=== PATIENT | female | born 1950 | race Caucasian/White ===

== ENCOUNTER 2016-05-09 07:49 | Inpatient (IN) ==
[2016-05-09] MEDS ORDERED: 0.9 % Sodium Chloride 1,000 ML IVC ONE (08:10)
[2016-05-09] MEDS ORDERED: Ondansetron 4 MG/2 ML VIAL IVP ONE ×2 (08:10→09:59)
[2016-05-09] MEDS ORDERED: *HR* FentaNYL (PF) 100 MCG/2 ML VIAL IVP ONE ×2 (08:10→09:59)
--- NOTE | 2016-05-09 08:19 | Emergency Department Note ---
Disposition Clinical Impression: Intractable nausea and vomiting, Abdominal pain, Partial small bowel obstruction Disposition: Admitted As Inpatient Condition: Good Nausea/Vomiting/Diarrhea HPI - General Chief complaint: ED Nausea/Vomiting/Diarrhea Stated complaint: N/V/D x1 day Time Seen by Provider: 05/09/16 08:00 Source: patient, family Mode of arrival: ambulatory Limitations: no limitations Nursing Notes Reviewed: Yes Vital Signs Reviewed: Yes - History of Present Illness HPI Narrative: 65-year-old female history of breast cancer DCIS, malrotation status post repair 2 years ago who presents to the ER with a chief complaint of nausea vomiting and abdominal pain. Patient states she started having abdominal pain yesterday. Describes it as a cramping pain going across her belly button. She reports a history of similar symptoms in the past attributable to her kidney stones. She states that it is not in the same location as her renal stones. Reports that she has had to have multiple lithotripsies and follows with urology. Patient denies dysuria or hematuria. She does endorse nausea and several episodes of bilious vomiting. Also reports loose stools this morning. No recent illnesses or sick contacts. No fevers at home. No other complaints. Pt Subjective Complaint: nausea, vomiting, abdominal pain Onset (ago): day(s) (1) Description of emesis: bilious Associated Abdominal Pain: Yes If pain, Location of pain: periumbilical Severity: moderate Quality: cramping Consistency: constant Improves with: nothing Worsens with: nonthing Context: history of abdominal surgery (Malrotation repair) Associated symptoms: Reports: loss of appetite, nausea/vomiting, other ( Abdominal pain). Denies: chest pain, fever/chills - Related Data Home Medications Medication Instructions Recorded Confirmed Cholecalciferol (Vitamin D3) 1,000 unit PO DAILY 10/17/14 05/09/16 [Vitamin D] Esomeprazole Magnesium [Nexium] 40 mg PO DAILY 10/17/14 05/09/16 Ferrous Sulfate 325 mg PO DAILY 10/17/14 05/09/16 Levothyroxine Sodium [Synthroid] 88 mcg PO DAILY 10/17/14 05/09/16 Meclizine HCl [Antivert] 12.5 mg PO DAILY PRN 10/17/14 05/09/16 Multivit-Min/FA/Lycopen/Lutein 1 tab PO DAILY 10/17/14 05/09/16 [Centrum Silver Tablet] Vitamin E 400 unit PO BID 10/17/14 05/09/16 Escitalopram [Lexapro] 20 mg PO DAILY 07/10/15 05/09/16 BuPROPion SR (12 HR) [Wellbutrin 100 mg PO DAILY 01/07/16 05/09/16 SR] Potassium Citrate [Urocit-K] 10 meq PO BID 05/01/16 05/09/16 Ascorbic Acid [Vitamin C] 500 mg PO DAILY 05/05/16 05/09/16 Cyanocobalamin (Vitamin B-12) 1,000 mcg SL DAILY 05/05/16 05/09/16 [Vitamin B-12] Folic Acid 1 mg PO DAILY 05/05/16 05/09/16 Gluc HCl/Csa/Collagen/Hyalur A 1 each PO BID 05/05/16 05/09/16 [Glucosamine Chondroitin Cap] Hydrochlorothiazide 25 mg PO DAILY 05/05/16 05/09/16 Polyethylene Glycol 3350 [MiraLAX 17 gm PO BID 05/09/16 05/09/16 bowel prep] Psyllium Husk [Fiber] 0.52 gm PO DAILY 05/09/16 05/09/16 Tramadol HCl [Ultram] 100 mg PO TID PRN 05/09/16 05/09/16 Zolpidem [Ambien] 5 mg PO HS 05/09/16 05/09/16 Allergies Allergy/AdvReac Type Severity Reaction Status Date / Time Iodinated Contrast Media - Allergy Hives Verified 05/09/16 11:16 Oral and All systems ED: reviewed and negative except as stated. Constitutional: Denies: fever Cardiovascular: Denies: chest pain Respiratory: Denies: cough, dyspnea Gastrointestinal: Reports: abdominal pain, nausea, vomiting. Denies: diarrhea Genitourinary: Denies: dysuria, hematuria Musculoskeletal: Denies: back pain Past Medical History - Past Medical History Attestation: Yes The following information was validated with the patient. Source: patient Medical history: Reports: cancer, GERD, kidney stones, other Surgical history: Reports: appendectomy, breast surgery, herniorrhaphy, hysterectomy, other Psychiatric history: Reports: anxiety, depression - Social History Smoking Status: Never smoker Smokeless Tobacco Status: No Alcohol use: Reports: none Drug use: Reports: none Physical Exam - General Limitations: no limitations General appearance: alert, in no apparent distress - Head Head exam: atraumatic, normocephalic, normal inspection - Eye Eye exam: Present: normal appearance - ENT ENT exam: normal exam - Neck Neck exam: Present: normal inspection - Chest Chest inspection: Present: normal inspection, symmetric chest wall rise - Respiratory Respiratory exam: Present: normal lung sounds bilaterally - Cardiovascular Cardiovascular exam: Present: regular rate, normal rhythm, normal heart sounds - Abdominal Exam Abdominal exam: Present: soft, tenderness (There is moderate tenderness to palpation in the periumbilical region. Patient grimaces with palpation. Nonrigid nondistended abdomen.) - Expanded Lower Extremity Exam Hip/Pelvis exam: Present: normal inspection, full ROM Upper leg exam: Present: normal inspection, full ROM Knee exam: Present: normal inspection, full ROM Lower leg exam: Present: normal inspection, full ROM Ankle exam: Present: normal inspection, full ROM Foot/toe exam: Present: normal inspection, full ROM - Back Exam Back exam: Absent: CVA tenderness (R), CVA tenderness (L) - Neurological Exam Neurological exam: Present: alert - Psychiatric Psychiatric exam: Present: normal affect, normal mood - Skin Skin exam: Present: warm, dry, intact, normal color Course Course Narrative: Patient seen and examined. Vital signs reviewed. Afebrile here. Plan for patient is to get some abdominal labs including lipase and LFTs. We will also get a urinalysis. Given her history of malrotation and repair we will get a CT scan of the abdomen and pelvis without contrast for evaluation as well as for history of renal stones. Patient will be provided with IV fluids, antiemetics and analgesics. Disposition pending. - Reevaluation(s) Reevaluation #1: Discussed results of lab work and imaging with the patient. She remains tender to palpation with nausea. Will order another dose of analgesics and antiemetics. - Consultations Consultation #1: I spoke with the on-call surgeon Dr. Trejo. The patient's history, exam, lab and imaging findings. He reports to admit to the hospitalist. I will place a consult for surgery to see her in the hospital. Vital Signs Temperature 97.5 F L 05/09/16 07:51 Pulse Rate 83 05/09/16 07:51 Respiratory Rate 16 05/09/16 07:51 Blood Pressure 135/76 05/09/16 07:51 O2 Sat by Pulse Oximetry 97 05/09/16 07:51 Temperature 97.4 F L 05/09/16 11:37 Pulse Rate 70 05/09/16 11:37 Respiratory Rate 16 05/09/16 11:37 Blood Pressure 124/70 05/09/16 11:37 O2 Sat by Pulse Oximetry 97 05/09/16 11:37 Oxygen Delivery Oxygen Delivery Room Air Nausea/Vomiting/Diarrhea - MDM Narrative Medical decision making narrative: 65-year-old female presents to the ER with a chief complaint of nausea vomiting abdominal pain history history of multiple [place] procedures including malrotation repair. She is afebrile here. She continues to have intractable nausea and vomiting despite multiple rounds of medications. She remains to have a tender abdomen despite appropriate analgesics. CT scan shows concern for ileus versus developing partial small bowel traction. This case was discussed with surgery who recommended admission to the hospitalist. Patient is accepted to the hospitalist service for continued management. - Lab Data Lab results reviewed: Yes I reviewed the patient's lab results. Result diagrams: 05/09/16 08:59 05/09/16 08:59 Lab Results 05/09/16 05/09/16 05/09/16 Range/Units 08:59 08:59 08:59 WBC 19.1 H (4.3-11.1) K/mcL RBC 4.56 (3.82-4.97) M/mcL Hgb 14.7 (11.5-15.4) g/dL Hct 42.8 (35.3-44.9) % MCV 93.9 (83.0-100.0) fL MCH 32.2 (28.0-33.3) pg MCHC 34.3 (31.6-35.5) g/dL RDW 13.0 (11.5-14.5) % Plt Count 329 (140-400) K/mcL MPV 10.4 (9.4-12.4) fL Immature Gran % 0.7 (0-4) % Seg Neutrophils % 80.1 % Lymphocytes % 7.0 % Monocytes % 12.0 % Eosinophils % 0.0 % Basophils % 0.2 % Neutrophils # 15.3 H (1.6-8.9) K/mcL Lymphocytes # 1.3 (0.6-4.6) K/mcL Monocytes # 2.3 H (0.0-1.3) K/mcL Eosinophils # 0.0 (0.0-0.6) K/mcL Basophils # 0.0 (0.0-0.2) K/mcL PT (9.4-12.1) Seconds INR Sodium 143 (136-145) mEq/L Potassium 3.6 (3.5-4.5) mEq/L Chloride 105 (98-109) mEq/L Carbon Dioxide 24 (19-29) mEq/L BUN 23 H (7-20) mg/dL Creatinine 0.92 (0.57-1.11) mg/dL Est GFR ( Amer) > 60 (> 60) Est GFR (Non-Af Amer) > 60 (> 60) BUN/Creatinine Ratio 25 (6-26) Glucose 130 H (70-99) mg/dL Calculated Osmolality 301 H (280-300) Calcium 10.9 H (8.6-10.8) mg/dL Total Bilirubin 0.4 (0.2-1.2) mg/dL Direct Bilirubin 0.2 (0.0-0.5) mg/dL Indirect Bilirubin 0.2 (0.0-1.2) mg/dL AST 12 (5-34) Units/L ALT 14 (0-55) Units/L Alkaline Phosphatase 105 (38-126) Units/L Serum Total Protein 7.4 (6.0-8.3) g/dL Albumin 4.1 (3.5-5.0) g/dL Globulin 3.3 (2.4-3.5) g/dL Albumin/Globulin Ratio 1.2 (1.1-2.2) Lipase 27 (8-78) Units/L // Range/Units 08:59 WBC (4.3-11.1) K/mcL RBC (3.82-4.97) M/mcL Hgb (11.5-15.4) g/dL Hct (35.3-44.9) % MCV (83.0-100.0) fL MCH (28.0-33.3) pg MCHC (31.6-35.5) g/dL RDW (11.5-14.5) % Plt Count (140-400) K/mcL MPV (9.4-12.4) fL Immature Gran % (0-4) % Seg Neutrophils % % Lymphocytes % % Monocytes % % Eosinophils % % Basophils % % Neutrophils # (1.6-8.9) K/mcL Lymphocytes # (0.6-4.6) K/mcL Monocytes # (0.0-1.3) K/mcL Eosinophils # (0.0-0.6) K/mcL Basophils # (0.0-0.2) K/mcL PT 10.7 (9.4-12.1) Seconds INR 1.0 Sodium (136-145) mEq/L Potassium (3.5-4.5) mEq/L Chloride (98-109) mEq/L Carbon Dioxide (19-29) mEq/L BUN (7-20) mg/dL Creatinine (0.57-1.11) mg/dL Est GFR ( Amer) (> 60) Est GFR (Non-Af Amer) (> 60) BUN/Creatinine Ratio (6-26) Glucose (70-99) mg/dL Calculated Osmolality (280-300) Calcium (8.6-10.8) mg/dL Total Bilirubin (0.2-1.2) mg/dL Direct Bilirubin (0.0-0.5) mg/dL Indirect Bilirubin (0.0-1.2) mg/dL AST (5-34) Units/L ALT (0-55) Units/L Alkaline Phosphatase (38-126) Units/L Serum Total Protein (6.0-8.3) g/dL Albumin (3.5-5.0) g/dL Globulin (2.4-3.5) g/dL Albumin/Globulin Ratio (1.1-2.2) Lipase (8-78) Units/L - Radiology Data Radiology results reviewed: Yes I reviewed the patient's radiology results. Abdomen/Pelvis CT 05/09/16 08:11 IMPRESSION: 1. Multiple dilated loops of fluid-filled small bowel, measuring up to 3.3 cm in diameter. Differential includes developing ileus versus partial small bowel obstruction. Patient reportedly has a history of bowel malrotation. Presence of surgical sutures in multiple loops of bowel suggest prior surgery. 2. Right adnexal 4.2 x 2.5 cm cystic collection. Patient has had a hysterectomy. Please correlate with surgical history of oophorectomy. If patient still has ovaries, this fluid collection may be associated with the right ovary. 3. Trace free fluid in the pelvis and around the spleen. 4. Nonobstructing bilateral nephrolithiasis. 5. Anterior abdominal wall hernia repair with mesh. D/ / 05/09/2016 09:15:34 Apollo Hernandes MD / rickey Interpreting Provider: MD Rimma White - Rimma Situation: Demographics, MOA Background: Presenting Complaint, Relevant PMH, Meds, & Allergies Assessment: Course and respsone to treatment, Exam Concerns, Pertinant Lab Results, Outstanding Labs Recommendation: Barrier(s) to disposition, Recommendation based on pending studies, treatments, or consults Rimma Report Given to: Dr. Laura Shanks Repor Time: 10:21 Attestation Statement - Attestation Attestation: For this encounter, I have reviewed the resident, FIELD OBSERVER, or PA documentation, treatment plan, and medical decision making; and I have had face to face time with this patient. 65-year-old female presents with concerns of abdominal pain, nausea, vomiting, and distention. Patient has a history of malrotation status post surgical repair and has a history of small bowel obstruction in the past. Patient states she has vomited multiple times which was described as a dark gritty material but denies hematemesis. Abdominal exam reveals distention, diffuse tenderness to palpation with tenderness to percussion. CT of the abdomen shows distended small bowel with possible small bowel obstruction versus ileus. Patient has a significantly elevated white blood cell count however she does not have a fever. We will add antibiotic coverage for gut bacteria and admitted to the hospitalists for further care and evaluation. Resident spoke with the surgeon who agreed with the plan and will see the patient in the hospital. The patient has not vomited in the emergency department and we will hold on NG tube placement unless status changes.
[2016-05-09 09:29] LABS: Basophils % 0.2 %; Hematocrit 42.8 % (35.3-44.9); Hemoglobin 14.7 g/dL (11.5-15.4); Immature Granulocytes % 0.7 % (0-4); Lymphocytes # 1.3 K/mcL (0.6-4.6); Mean Corpuscular HGB Conc 34.3 g/dL (31.6-35.5); Mean Corpuscular Hemoglobin 32.2 pg (28.0-33.3); Mean Corpuscular Volume 93.9 fL (83.0-100.0); Mean Platelet Volume 10.4 fL (9.4-12.4); Monocytes # 2.3 K/mcL (0.0-1.3); Neutrophils # 15.3 K/mcL (1.6-8.9); Platelet Count 329 K/mcL (140-400); Red Blood Count 4.56 M/mcL (3.82-4.97); Segmented Neutrophils % 80.1 %
[2016-05-09 09:43] LABS: Albumin 4.1 g/dL (3.5-5.0); Albumin/Globulin Ratio 1.2 (1.1-2.2); Bilirubin,Direct 0.2 mg/dL (0.0-0.5); Bilirubin,Indirect 0.2 mg/dL (0.0-1.2); Bilirubin,Total 0.4 mg/dL (0.2-1.2); Globulin 3.3 g/dL (2.4-3.5); Total Protein 7.4 g/dL (6.0-8.3)
[2016-05-09 09:45] LABS: BUN/Creatinine Ratio 25 (6-26); Blood Urea Nitrogen 23 mg/dL (7-20); Calcium 10.9 mg/dL (8.6-10.8); Carbon Dioxide 24 mEq/L (19-29); Chloride 105 mEq/L (98-109); Glucose 130 mg/dL (70-99); Lipase 27 Units/L (8-78); Osmolality,Calculated 301 (280-300); Potassium 3.6 mEq/L (3.5-4.5); Sodium 143 mEq/L (136-145); eGFR For African Americans > 60 (> 60); eGFR For Non-African Americans > 60 (> 60)
[2016-05-09 09:46] LABS: Prothrombin Time 10.7 Seconds (9.4-12.1)
[2016-05-09] MEDS ORDERED: Naloxone 0.4 MG/ML INJ IVP PRN (10:23)
--- NOTE | 2016-05-09 10:38 | Internal Med History&Physical ---
Date of Encounter: 05/11/16 Time of Encounter: 10:37 Assessment and Plan (1) Partial small bowel obstruction Current visit: Yes Status: Acute Small bowel obstruction: -Patient admitted as an inpatient. -Nothing by mouth with ice chips. -IV fluids 75 mL per hour. -Serial abdominal examination -Surgery on the board. We will follow opinion from surgery. -GI/DVT prophylaxis (2) Nausea & vomiting Current visit: No Status: Acute Symptomatic treatment. IV fluids. Qualifiers: Vomiting type: unspecified Vomiting Intractability: unspecified Qualified Code(s): R11.2 - Nausea with vomiting, unspecified (3) Breast cancer, left Current visit: No Status: Chronic Visit system chronic problem and has no relation with this acute finding Qualifiers: Breast location: unspecified site of breast Patient sex: female Qualified Code(s): C50.912 - Malignant neoplasm of unspecified site of left female breast (4) DVT prophylaxis Current visit: Yes Status: Acute Heparin Medical decision making: This patient has a [id number] risk of worsening in spite of being on appropriate medication and treatments. Internal Medicine - H&P: HPI Chief complaint: abdominal pain Admitted From: Emergency Dept Plans for Post Hospital Care: Home History of present illness: PCP: Dr Wooten Brief PMH: breast cancer, GERD, kidney stones, previous GI surgery. HPI: chief complaint of nausea vomiting and abdominal pain. Patient states she started having abdominal pain yesterday. Describes it as a cramping pain going across her belly button. She reports a history of similar symptoms in the past attributable to her kidney stones. She states that it is not in the same location as her renal stones. Patient denies chest pain, dizziness, palpitation , short of breath and joint pain. Patient had an episode of vomiting and diarrhea. Patient was brought to the emergency room by family members as she was progressively getting worse. Course in the emergency room: Patient was worked up in the emergency room. Basic lab work was done. Noted that her white blood cell count was elevated ( 19K), patient underwent CT scan of the abdomen. CT scan of the abdomen showed developing small bowel obstruction/partial ileus. Emergency room physician contacted surgery. Surgeon Dr. Trejo will be surgeon to call for. He requested to admit patient under hospitalist service and he will be available for consult. Reason for admission: Possible Small bowel obstruction. This is a semi- surgical issue which needs to be monitored in the hospital and this cannot be treated at home. Family history: Noncontributory Past Med Surg Social Fam HX - Past Medical History Medical history: cancer, GERD, kidney stones, other Psychiatric history: anxiety, depression - Past Surgical History Surgical History: appendectomy, breast surgery, herniorrhaphy, hysterectomy, other - Social History Smoking Status: Never smoker Smokeless Tobacco Status: No Alcohol use: none Drug use: none Internal Medicine - H&P: Meds Cholecalciferol (Vitamin D3) [Vitamin D] 1,000 unit PO DAILY 10/17/14 [History] Esomeprazole Magnesium [Nexium] 40 mg PO DAILY 10/17/14 [History] Ferrous Sulfate 325 mg PO DAILY 10/17/14 [History] Levothyroxine Sodium [Synthroid] 88 mcg PO DAILY 10/17/14 [History] Meclizine HCl [Antivert] 12.5 mg PO DAILY PRN 10/17/14 [History] Multivit-Min/FA/Lycopen/Lutein [Centrum Silver Tablet] 1 tab PO DAILY 10/17/14 [ History] Vitamin E 400 unit PO BID 10/17/14 [History] Escitalopram [Lexapro] 20 mg PO DAILY 07/10/15 [History] BuPROPion SR (12 HR) [Wellbutrin SR] 100 mg PO DAILY 01/07/16 [History] Potassium Citrate [Urocit-K] 10 meq PO BID 05/01/16 [History] Ascorbic Acid [Vitamin C] 500 mg PO DAILY 05/05/16 [History] Cyanocobalamin (Vitamin B-12) [Vitamin B-12] 1,000 mcg SL DAILY 05/05/16 [ History] Folic Acid 1 mg PO DAILY 05/05/16 [History] Gluc HCl/Csa/Collagen/Hyalur A [Glucosamine Chondroitin Cap] 1 each PO BID 05/05 [History] Hydrochlorothiazide 25 mg PO DAILY 05/05/16 [History] Polyethylene Glycol 3350 [MiraLAX bowel prep] 17 gm PO BID 05/09/16 [History] Psyllium Husk [Fiber] 0.52 gm PO DAILY 05/09/16 [History] Tramadol HCl [Ultram] 100 mg PO TID PRN 05/09/16 [History] Zolpidem [Ambien] 5 mg PO HS 05/09/16 [History] Allergies Iodinated Contrast Media - Oral and Allergy (Verified 05/09/16 11:16) Hives All Systems PM: A 10-system review of systems was performed and is negative for pertinent findings except as documented above in the HPI. - Constitutional Constitutional: no chills, no fever(s), no night sweats - EENT Eyes: no change in vision, no discharge, no pain, no photophobia Ears: no ear discharge, no ear pain, no tinnitus Nose, mouth and throat: no dysphagia, no nasal discharge, no neck pain, no sore throat - Cardiovascular Cardiovascular ROS IM: no chest pain, no diaphoresis, no dyspnea, no lightheadedness, no palpitations, no syncope - Respiratory Respiratory: no cough, no dyspnea, no wheezing, no excessive phlegm production - Gastrointestinal Gastrointestinal: abdominal pain, belching, bloating, change in stool character , diarrhea, loose stools, vomiting - Genitourinary Genitourinary: no change in urinary stream, no dysuria, no flank pain, no hematuria - Musculoskeletal Musculoskeletal ROS IM: no numbness, no tingling - Integumentary Integumentary IM: no rash, no unusual bruising - Neurological Neurological ROS: no confusion, no convulsions, no focal weakness, no numbness, no tingling, no tremor(s) - Hematologic/Lymphatic Hematologic/Lymphatic: no easy bruising - Constitutional Vitals: Temp Pulse Resp BP Pulse Ox 97.5 F L 70 16 148/78 98 05/09/16 07:51 05/09/16 10:00 05/09/16 10:00 05/09/16 10:00 05/09/16 10:00 General appearance: Present: A&O X 3, pleasant, no acute distress, answers questions appropriately - Head Head exam: Present: atraumatic, normocephalic - Eye Eye exam: Present: PERRL, conjuntiva pink, sclera anicteric Pupils: Present: PERRL - Neck Neck exam general surgery: Present: supple, trachea midline. Absent: lymphadenopathy - Respiratory Respiratory exam: Present: CTAB. Absent: accessory muscle use, rales, rhonchi, wheezes - Cardiovascular Cardiovascular exam: Present: RRR, +S1, +S2. Absent: diastolic murmur, gallop, rubs, systolic murmur - GI/Abdominal GI/Abdominal exam: Present: guarding, normal bowel sounds, soft, tenderness, no peritoneal signs. Absent: distended - Extremities Exam Extremities exam: Present: warm, radial pulses palpable and symetrical. Absent : calf tenderness, cyanotic, pedal edema - Neurological Exam Neurological exam: Present: CN II-XII intact, oriented X3, no focal deficits. Absent: pronater drift, facial droop, speech deficit - Skin Skin exam: Present: dry, intact Internal Med - H&P Results - Labs CBC & Chem 7: 05/10/16 06:01 05/10/16 04:00
[2016-05-09] MEDS ORDERED: *HR* LORazepam 2 MG/ML VIAL IVP ONE ×2 (10:59→15:21)
[2016-05-09] MEDS: 0.9 % Sodium Chloride 1,000 ML IVC SCH (11:59)
[2016-05-09] MEDS ORDERED: Promethazine 12.5 MG in 0.9 % Sodium Chloride 50 ML IVPB PRN (12:09)
[2016-05-09] MEDS ORDERED: *HR* Promethazine 25 MG/ML VIAL ONE (12:17)
[2016-05-09] MEDS: *HR* Promethazine 25 MG/ML VIAL IVP PRN (12:30)
[2016-05-09] MEDS: *HR* Morphine 2 MG/ML SYRINGE IVP PRN ×3 (12:30→21:30)
[2016-05-09] MEDS ORDERED: Lidocaine Jelly 6 ml Syringe MM ONE (15:21)
[2016-05-09] MEDS: MetroNIDAZOLE 500 MG/100 ML 500 MG/100 ML BAG IVPB SCH (15:40)
[2016-05-09] MEDS ORDERED: Chloraseptic Spray 177 ML BOTTLE MM PRN (16:05)
[2016-05-09] MEDS ORDERED: Lidocaine Viscous Oral Soln 15 ML SOLUTION MM PRN (16:05)
--- NOTE | 2016-05-09 16:14 | General Surgery Consult Note ---
<Cici Diaz A - Last Filed: 05/09/16 16:07> Date of Encounter: 05/09/16 Time of Encounter: 15:00 Assessment and Plan (1) Partial small bowel obstruction Current Visit: Yes Status: Acute Conservative therapy at this time including: Bowel rest NG tube to LIWS IV fluids Supportive care/pain control Serial abdominal exams Surgery will continue to follow and assess progress History of Present Illness Consult date: 05/09/16 Reason for consult: other (PSBO) Requesting physician: Rosendo Rasmussen History of present illness: Mrs. Mcintosh is a very pleasant 65 year old female who is well known to the surgery practice. She has a past medical history significant for breast cancer, fibromyalgia, anxiety, GERD, osteoporosis, diverticulosis, malrotation of the intestines, FCBD, hypothyroidism, kidney stones, anemia. She presented to the ED today with a 3 days history of abdominal pain with associated nausea/ vomiting. She states that she has been treated for bronchitis for the past 1 week and is currently taking an antibiotic and steroid. She states that she has not felt well since starting these medications. She states that he abdominal pain is located around the central abdomen and has progressively worsened over the past 3 days. Reports nausea/vomiting with last episode being today. Denies any hematemesis of coffee ground emesis. Admits to chronic constipation and typically has a bowel movement 2-3 times per week. Last bowel movement was this morning and it was diarrhea. Admits to fevers up to 101.8 and chills. Denies any shortness of breath of chest pains. Admits to a cough. Admits to significant abdominal bloating. Her radiologic imaging shows evidence of SB dilatation and partial SBO. We have been asked to see and evaluate her for surgical recommendations. Past Med Surg Social Fam HX - Past Medical History Source: patient, old records reviewed Medical history: cancer (breast), GERD, kidney stones, thyroid disease ( hypothyroidism), other (fibromyalgia, osteoporosis, diverticulosis, dermatitis, insomnia, FCBD, anemia, malrotation of intestines) Psychiatric history: anxiety, depression - Past Surgical History Surgical History: appendectomy, breast surgery (left breast biopsy, left breast lumpectomy), herniorrhaphy (incisional hernia repair 2015), hysterectomy, other (tubal ligation and bladder surgery, Club feet surgery as a child, D&C and diagnostic laparoscopy, bladder surgery, colonoscopy, kidney stone removal, exploraotry laparotomy) - Social History Smoking Status: Never smoker Smokeless Tobacco Status: No Alcohol use: none Drug use: none Current living situation: Home - Independent Activity Level: Independent ambulation - Family History Mother Living Status: Age at : 87 Hx Family Cancer: Yes (Ovarian) Hx Family Endocrine Disorder: Yes (DM) Father Living Status: Age at : 89 Hx Family Cancer: Yes (Prostate and colon) Medications and Allergies Cholecalciferol (Vitamin D3) [Vitamin D] 1,000 unit PO DAILY 10/17/14 [History] Esomeprazole Magnesium [Nexium] 40 mg PO DAILY 10/17/14 [History] Ferrous Sulfate 325 mg PO DAILY 10/17/14 [History] Levothyroxine Sodium [Synthroid] 88 mcg PO DAILY 10/17/14 [History] Meclizine HCl [Antivert] 12.5 mg PO DAILY PRN 10/17/14 [History] Multivit-Min/FA/Lycopen/Lutein [Centrum Silver Tablet] 1 tab PO DAILY 10/17/14 [ History] Vitamin E 400 unit PO BID 10/17/14 [History] Escitalopram [Lexapro] 20 mg PO DAILY 07/10/15 [History] BuPROPion SR (12 HR) [Wellbutrin SR] 100 mg PO DAILY 01/07/16 [History] Potassium Citrate [Urocit-K] 10 meq PO BID 05/01/16 [History] Ascorbic Acid [Vitamin C] 500 mg PO DAILY 05/05/16 [History] Cyanocobalamin (Vitamin B-12) [Vitamin B-12] 1,000 mcg SL DAILY 05/05/16 [ History] Folic Acid 1 mg PO DAILY 05/05/16 [History] Gluc HCl/Csa/Collagen/Hyalur A [Glucosamine Chondroitin Cap] 1 each PO BID 05/05 [History] Hydrochlorothiazide 25 mg PO DAILY 05/05/16 [History] Polyethylene Glycol 3350 [MiraLAX bowel prep] 17 gm PO BID 05/09/16 [History] Psyllium Husk [Fiber] 0.52 gm PO DAILY 05/09/16 [History] Tramadol HCl [Ultram] 100 mg PO TID PRN 05/09/16 [History] Zolpidem [Ambien] 5 mg PO HS 05/09/16 [History] Allergies Iodinated Contrast Media - Oral and Allergy (Verified 05/09/16 11:16) Hives Review of Systems All systems PM: reviewed and no additional remarkable complaints except as stated (in the HPI) All systems PM: A 10-system review of systems was performed and is negative for pertinent findings except as documented above in the HPI. General Surgery Exam Initial Vital Signs Temp Pulse Resp BP Pulse Ox 97.5 F L 83 16 135/76 97 05/09/16 07:51 05/09/16 07:51 05/09/16 07:51 05/09/16 07:51 05/09/16 07:51 - General physical appearance well developed, well nourished, moderate distress - Eyes normal ocular movement - ENT normal mucosa, atraumatic, normocephalic - Neck trachea midline - Respiratory normal respiratory effort, clear to auscultation - Cardiovascular Cardiovascular exam: Present: RRR, 15, 16 - Abdomen Abdomen general surgery: Present: bowel sounds present, soft, distended, tender , wound - Integumentary Integumentary general surgery: Present: warm and dry - Neurologic Present: CN 2-12 grossly intact - Psychiatric Psychiatric general surgery: Present: appropriate, oriented to person, oriented to place, oriented to time, speech is normal, memory intact Exam Initial Vital Signs Temp Pulse Resp BP Pulse Ox 97.5 F L 83 16 135/76 97 05/09/16 07:51 05/09/16 07:51 05/09/16 07:51 05/09/16 07:51 05/09/16 07:51 Results - Labs 05/09/16 08:59 05/09/16 08:59 Abnormal lab results WBC 19.1 K/mcL (4.3-11.1) H 05/09/16 08:59 Neutrophils # 15.3 K/mcL (1.6-8.9) H 05/09/16 08:59 Monocytes # 2.3 K/mcL (0.0-1.3) H 05/09/16 08:59 BUN 23 mg/dL (7-20) H 05/09/16 08:59 Glucose 130 mg/dL (70-99) H 05/09/16 08:59 POC Glucose 119 (58-89) H 05/09/16 11:46 Calculated Osmolality 301 (280-300) H 05/09/16 08:59 Calcium 10.9 mg/dL (8.6-10.8) H 05/09/16 08:59 All other labs normal. - Imaging Additional studies: Abdomen/Pelvis CT 05/09/16 08:11 IMPRESSION: 1. Multiple dilated loops of fluid-filled small bowel, measuring up to 3.3 cm in diameter. Differential includes developing ileus versus partial small bowel obstruction. Patient reportedly has a history of bowel malrotation. Presence of surgical sutures in multiple loops of bowel suggest prior surgery. 2. Right adnexal 4.2 x 2.5 cm cystic collection. Patient has had a hysterectomy. Please correlate with surgical history of oophorectomy. If patient still has ovaries, this fluid collection may be associated with the right ovary. 3. Trace free fluid in the pelvis and around the spleen. 4. Nonobstructing bilateral nephrolithiasis. 5. Anterior abdominal wall hernia repair with mesh. D/ / 05/09/2016 09:15:34 Apollo Hernandes MD / rickey Interpreting Provider: Apollo Hernandes MD Consult Discharge Plan - Plan Referrals: Levi Wooten MD [Primary Care Provider] - - Attending Attestation I examined this patient and my medical decision-making was reviewed with the CREATIVE PERFUMER/PA/Advanced Practice Nurse/Resident Physician. I agree with the documented findings, disposition and treatment plan as described except to the extent set forth below. <Walt Trejo - Last Filed: 05/10/16 01:30> Date of Encounter: 05/10/16 Review of Systems All systems PM: A 10-system review of systems was performed and is negative for pertinent findings except as documented above in the HPI. General Surgery Exam Initial Vital Signs Temp Pulse Resp BP Pulse Ox 97.5 F L 83 16 135/76 97 05/09/16 07:51 05/09/16 07:51 05/09/16 07:51 05/09/16 07:51 05/09/16 07:51 Exam Initial Vital Signs Temp Pulse Resp BP Pulse Ox 97.5 F L 83 16 135/76 97 05/09/16 07:51 05/09/16 07:51 05/09/16 07:51 05/09/16 07:51 05/09/16 07:51 Results - Labs 05/09/16 08:59 05/09/16 08:59 Abnormal lab results WBC 19.1 K/mcL (4.3-11.1) H 05/09/16 08:59 Neutrophils # 15.3 K/mcL (1.6-8.9) H 05/09/16 08:59 Monocytes # 2.3 K/mcL (0.0-1.3) H 05/09/16 08:59 BUN 23 mg/dL (7-20) H 05/09/16 08:59 Glucose 130 mg/dL (70-99) H 05/09/16 08:59 Calculated Osmolality 301 (280-300) H 05/09/16 08:59 Calcium 10.9 mg/dL (8.6-10.8) H 05/09/16 08:59 Urine Clarity Cloudy (Clear) A 05/09/16 21:15 Ur Leukocyte Esterase Trace (Negative) H 05/09/16 21:15 Urine Microscopic WBC 3-5 per hpf (0-3) H 05/09/16 21:15 Ur Squamous Epith Cells Many per lpf (None-Few) H 05/09/16 21:15 Ur Culture Indicated? YES (NO) A 05/09/16 21:15 All other labs normal. - Attending Attestation I was physically present during the assessment and evaluation process for this patient. She has been having abdominal distention for several days with abdominal pain. Noted nausea and vomiting with the last episode of vomiting this morning. He is also been having some dry heaving. Positive tympany and pain to palpation. Patient has had multiple abdominal surgeries including bowel resection and hernia repair. She will require NG tube placement with decompression and serial abdominal exams. We will follow with you.
[2016-05-09] MEDS: *HR* Heparin 5,000 UNIT/ML VIAL SQ SCH (17:40)
[2016-05-09 21:28] LABS: Bilirubin,Urine Negative (Negative); Blood,Urine Negative (Negative); Clarity,Urine Cloudy (Clear); Color,Urine Yellow (Yellow); Glucose,Urine (UA) Normal (Normal); Ketones,Urine Negative (Negative); Leukocyte Esterase,Urine Trace (Negative); Nitrite,Urine Negative (Negative); PH,Urine 6.5 pH Units (5.0-8.0); Protein,Urine Trace mg/dL (Neg-Trace); Specific Gravity,Urine 1.018 (1.010-1.025); Urobilinogen,Urine Normal (Normal)
[2016-05-09 21:30] LABS: Bacteria,Urine None Seen per hpf (None-Few); Hyaline Casts,Urine Few per lpf (None-Few); RBC,Urine 0-3 per hpf (0-3); Squamous Epithelial Cell,Urine Many per lpf (None-Few)
[2016-05-09 21:40] LABS: Other Crystals,Urine Present
[2016-05-10] MEDS: MetroNIDAZOLE 500 MG/100 ML 500 MG/100 ML BAG IVPB SCH ×4 (00:25→23:51)
[2016-05-10] MEDS: *HR* Morphine 2 MG/ML SYRINGE IVP PRN ×5 (02:42→20:20)
[2016-05-10 05:14] LABS: Alanine Aminotransferase 10 Units/L (0-55); Alkaline Phosphatase 72 Units/L (38-126); Aspartate Amino Transferase 13 Units/L (5-34); BUN/Creatinine Ratio 35 (6-26); Bilirubin,Total 0.3 mg/dL (0.2-1.2); Blood Urea Nitrogen 28 mg/dL (7-20); Carbon Dioxide 24 mEq/L (19-29); Chloride 111 mEq/L (98-109); Globulin 2.8 g/dL (2.4-3.5); Glucose 81 mg/dL (70-99); Magnesium 1.9 mg/dL (1.6-2.6); Osmolality,Calculated 301 (280-300); Phosphorous 3.6 mg/dL (2.3-4.7); Potassium 4.2 mEq/L (3.5-4.5); Sodium 143 mEq/L (136-145); eGFR For African Americans > 60 (> 60); eGFR For Non-African Americans > 60 (> 60)
[2016-05-10 05:27] LABS: Albumin 2.8 g/dL (3.5-5.0); Calcium 8.2 mg/dL (8.6-10.8); Total Protein 5.6 g/dL (6.0-8.3)
[2016-05-10] MEDS: *HR* Heparin 5,000 UNIT/ML VIAL SQ SCH ×2 (05:53→18:30)
[2016-05-10] MEDS: 0.9 % Sodium Chloride 1,000 ML IVC SCH (05:55)
[2016-05-10 06:47] LABS: Basophils % 0.2 %; Eosinophils % 0.3 %; Hemoglobin 11.6 g/dL (11.5-15.4); Immature Granulocytes % 0.7 % (0-4); Lymphocytes # 1.8 K/mcL (0.6-4.6); Lymphocytes % 20.3 %; Mean Corpuscular HGB Conc 32.2 g/dL (31.6-35.5); Mean Corpuscular Hemoglobin 32.1 pg (28.0-33.3); Mean Corpuscular Volume 99.7 fL (83.0-100.0); Mean Platelet Volume 10.3 fL (9.4-12.4); Monocytes # 1.1 K/mcL (0.0-1.3); Monocytes % 12.9 %; Platelet Count 242 K/mcL (140-400); Red Blood Count 3.61 M/mcL (3.82-4.97); Red Cell Distribution Width 13.3 % (11.5-14.5); Segmented Neutrophils % 65.6 %
[2016-05-10 06:51] LABS: Neutrophils # 5.8 K/mcL (1.6-8.9)
[2016-05-10] MEDS: Pantoprazole 40 MG VIAL IVP SCH (07:52)
--- NOTE | 2016-05-10 09:12 | General Surgery Progress Note ---
<Don Joya - Last Filed: 05/10/16 11:37> Date of Encounter: 05/10/16 Time of Encounter: 07:25 - Assessment and Plan (1) Partial small bowel obstruction Current Visit: Yes Status: Acute Patient is improving. Will continue with conservative therapy at this time including: Bowel rest NG tube to LIWS IV fluids Supportive care/pain control Serial abdominal exams. Will follow NG output (2) DVT prophylaxis Current Visit: Yes Status: Acute Heparin 5000 units SQ Q12hr Subjective Patient reports: no new complaints, still having pain, pain is less, no flatus, no bowel movement, afebrile Narrative: The patient states she feels much better than yesterday, she continues to have some pain, but it is much less. She denies having nausea at this time. She denies return of her appetite. Objective Vital Signs - Last 8 Hours Temp Pulse Resp BP Pulse Ox 05/10/16 07:00 98.0 F 63 14 114/57 96 05/10/16 03:28 97.7 F 74 15 112/64 94 L 05/10/16 02:41 118/57 Intake and Output 05/09/16 05/10/16 05/10/16 23:59 07:59 15:59 Intake Total 300 / 300 1365 / 1365 Output Total 360 / 360 725 / 725 Balance -60 / -60 640 / 640 Intake: IV Fluids 300 / 300 1365 / 1365 0.9 % Sodium Chloride 1, 1065 / 1065 000 ML @ 70 mls/hr IVC . [id number] JOSE R Rx#: [id number] Cipro 400 MG/200 ML 400 200 / 200 200 / 200 mg In 200 ml @ 200 mls/hr IVPB Q12HR JOSE R Rx#: [id number] Flagyl 500 MG/100 ML 500 100 / 100 100 / 100 mg In 100 ml @ 100 mls/hr IVPB Q8HR JOSE R Rx#: [id number] Oral 0 / 0 Output: Urine 360 / 360 Urethral (Nieves) 360 / 360 Catheter 250 / 250 Gastric Drainage 475 / 475 Left Nare 350 / 350 Other: Meal NPO Blood Glucose* 121 79 - General physical appearance well developed, well nourished, no distress - Eyes normal ocular movement - ENT normal nares, normal mucosa, Other (NG tube in place) - Neck Neck exam: trachea midline - Respiratory normal respiratory effort, clear to auscultation - Cardiovascular Cardiovascular exam: Present: RRR - Abdomen Abdomen: Present: bowel sounds present, soft, non tender, distended (improved). Absent: guarding - Integumentary no rash - Neurologic CN 2-12 grossly intact - Musculoskeletal normal posture - Psychiatric oriented to time, oriented to person, oriented to place, speech is normal, memory intact - Labs 05/10/16 06:01 05/10/16 04:00 Diabetes panel 05/10/16 Range/Units 04:00 Sodium 143 (136-145) mEq/L Potassium 4.2 (3.5-4.5) mEq/L Chloride 111 H (98-109) mEq/L Carbon Dioxide 24 (19-29) mEq/L BUN 28 H (7-20) mg/dL Creatinine 0.81 (0.57-1.11) mg/dL Glucose 81 (70-99) mg/dL Calcium 8.2 L D (8.6-10.8) mg/dL AST 13 (5-34) Units/L ALT 10 (0-55) Units/L Alkaline Phosphatase 72 (38-126) Units/L Albumin 2.8 L D (3.5-5.0) g/dL Calcium panel 05/10/16 Range/Units 04:00 Calcium 8.2 L D (8.6-10.8) mg/dL Phosphorus 3.6 (2.3-4.7) mg/dL Albumin 2.8 L D (3.5-5.0) g/dL Pituitary panel 05/10/16 Range/Units 04:00 Sodium 143 (136-145) mEq/L Potassium 4.2 (3.5-4.5) mEq/L Chloride 111 H (98-109) mEq/L Carbon Dioxide 24 (19-29) mEq/L BUN 28 H (7-20) mg/dL Creatinine 0.81 (0.57-1.11) mg/dL Glucose 81 (70-99) mg/dL Calcium 8.2 L D (8.6-10.8) mg/dL Adrenal panel 05/10/16 Range/Units 04:00 Sodium 143 (136-145) mEq/L Potassium 4.2 (3.5-4.5) mEq/L Chloride 111 H (98-109) mEq/L Carbon Dioxide 24 (19-29) mEq/L BUN 28 H (7-20) mg/dL Creatinine 0.81 (0.57-1.11) mg/dL Glucose 81 (70-99) mg/dL Calcium 8.2 L D (8.6-10.8) mg/dL Total Bilirubin 0.3 (0.2-1.2) mg/dL AST 13 (5-34) Units/L ALT 10 (0-55) Units/L Alkaline Phosphatase 72 (38-126) Units/L Albumin 2.8 L D (3.5-5.0) g/dL Consult Discharge Plan - Plan Referrals: Levi Wooten MD [Primary Care Provider] - - Attending Attestation I examined this patient and my medical decision-making was reviewed with the PATCH WASHER/PA/Advanced Practice Nurse/Resident Physician. I agree with the documented findings, disposition and treatment plan as described except to the extent set forth below. <Walt Trejo - Last Filed: 05/11/16 07:31> Date of Encounter: 05/11/16 Objective Vital Signs - Last 8 Hours Temp Pulse Resp BP Pulse Ox 05/11/16 05:20 98.5 F 65 15 107/64 93 L Intake and Output 05/10/16 05/10/16 05/11/16 15:59 23:59 07:59 Intake Total 333 / 333 673 / 673 379 / 379 Output Total 700 / 700 850 / 850 550 / 550 Balance -367 / -367 -177 / -177 -171 / -171 Intake: IV Fluids 333 / 333 673 / 673 379 / 379 0.9 % Sodium Chloride 1, 233 / 233 373 / 373 279 / 279 000 ML @ 70 mls/hr IVC . [id number] JOSE R Rx#: [id number] Cipro 400 MG/200 ML 400 200 / 200 mg In 200 ml @ 200 mls/hr IVPB Q12HR JOSE R Rx#: [id number] Flagyl 500 MG/100 ML 500 100 / 100 100 / 100 100 / 100 mg In 100 ml @ 100 mls/hr IVPB Q8HR JOSE R Rx#: [id number] Output: Catheter 450 / 450 850 / 850 550 / 550 Gastric Drainage 250 / 250 Other: Meal NPO lunch NPO Percent of Meal Consumed 0% Blood Glucose* 68 64 80 - Labs 05/10/16 06:01 05/10/16 04:00 - Attending Attestation I reviewed the physical examination and assessment was present. Patient states the abdominal incision is decreased. She has less tympany and no abdominal pain. Positive bowel sounds. She denies any flatus. Agree with continued NG tube to low intermittent wall suction and continue serial abdominal examination.
--- NOTE | 2016-05-10 10:36 | Internal Med Progress Note ---
Date of Encounter: 05/10/16 Time of Encounter: 10:32 - Assessment and plan (1) Partial small bowel obstruction Current Visit: Yes Status: Acute Assessment and plan: h/o surgery fo rmalrotation. NG tube has been placed, reports that she feels clinically better abdominal pain has imporved , no nausea or vomiting keep IVF, on ice chips will follow surgical recommendations conservative mx, continue IV ab (2) Nausea & vomiting Current Visit: No Status: Acute Assessment and plan: improved. Qualifiers: Vomiting type: unspecified Vomiting Intractability: intractable Qualified Code(s): R11.2 - Nausea with vomiting, unspecified - Time Spent With Patient 25 - 35 minutes - Subjective Interval history: seen at the bedside, admitted for partial SBO. clinically better, surgery following. - Constitutional Vitals: Temp Pulse Resp BP Pulse Ox 98.0 F 63 14 114/57 96 05/10/16 07:00 05/10/16 07:00 05/10/16 07:00 05/10/16 07:00 05/10/16 07:00 General appearance: Present: A&O X 3, pleasant, no acute distress, answers questions appropriately Exam: - Head Head exam: Present: atraumatic, normocephalic - Eye Eye exam: Present: PERRL, conjuntiva pink, sclera anicteric Pupils: Present: PERRL - Neck Neck exam general surgery: Present: supple, trachea midline. Absent: lymphadenopathy - Respiratory Respiratory exam: Present: CTAB. Absent: accessory muscle use, rales, rhonchi, wheezes - Cardiovascular Cardiovascular exam: Present: RRR, +S1, +S2. Absent: diastolic murmur, gallop, rubs, systolic murmur - GI/Abdominal GI/Abdominal exam: Present: guarding, decreased bowel sounds, soft, tenderness, no peritoneal signs. Absent: distended - Extremities Exam Extremities exam: Present: warm, radial pulses palpable and symetrical. Absent : calf tenderness, cyanotic, pedal edema - Neurological Exam Neurological exam: Present: CN II-XII intact, oriented X3, no focal deficits. Absent: pronater drift, facial droop, speech deficit - Skin Skin exam: Present: dry, intact Internal Medicine: Result - Labs CBC & Chem 7: 05/10/16 06:01 05/10/16 04:00 Labs: Short CBC 05/10/16 Range/Units 06:01 WBC 8.8 D (4.3-11.1) K/mcL Hgb 11.6 D (11.5-15.4) g/dL Hct 36.0 (35.3-44.9) % Plt Count 242 (140-400) K/mcL Neutrophils # 5.8 (1.6-8.9) K/mcL BMP 05/10/16 04:00 Sodium 143 Potassium 4.2 Chloride 111 H Carbon Dioxide 24 BUN 28 H Creatinine 0.81 Glucose 81 Calcium 8.2 L D Liver Function 05/10/16 Range/Units 04:00 Total Bilirubin 0.3 (0.2-1.2) mg/dL AST 13 (5-34) Units/L ALT 10 (0-55) Units/L Alkaline Phosphatase 72 (38-126) Units/L Albumin 2.8 L D (3.5-5.0) g/dL Urine 05/09/16 Range/Units 21:15 Urine Color Yellow (Yellow) Urine Clarity Cloudy A (Clear) Urine pH 6.5 (5.0-8.0) pH Units Ur Specific [place] 1.018 (1.010-1.025) Urine Protein Trace (Neg-Trace) mg/dL Urine Glucose (UA) Normal (Normal) mg/dL - ABG Interpretation ABG results: PT/INR, D-dimer PT 10.7 Seconds (9.4-12.1) 05/09/16 08:59 - Impressions Impressions KUB X-Ray 05/09/16 16:04 IMPRESSION: Enteric tube is in the stomach with the side port at the level of the fundus and the tip at the level of the proximal-mid gastric body. D/ / 05/09/2016 16:47:38 Santiago Hubbard MD / rickey Interpreting Provider: Santiago Hubbard MD Consult Discharge Plan - Plan Referrals: Levi Wooten MD [Primary Care Provider] -
[2016-05-10] MEDS ORDERED: Dextrose Gel 15 GM PO PRN ×2 (23:36)
[2016-05-10] MEDS ORDERED: D5% in Water 1,000 ML IV PRN (23:36)
[2016-05-10] MEDS ORDERED: *HR* Dextrose 50 % in Water (Syg) 50 ML SYRINGE IVP PRN (23:36)
[2016-05-10] MEDS: D5% in 0.45% NACL 1,000 ML IVC SCH (23:51)
[2016-05-11] MEDS: *HR* Morphine 2 MG/ML SYRINGE IVP PRN (01:47)
[2016-05-11] MEDS ORDERED: Milk and Molasses Enema 200 ML RC SCH ×2 (05:30→10:45)
[2016-05-11] MEDS: *HR* Heparin 5,000 UNIT/ML VIAL SQ SCH ×2 (06:19→17:55)
[2016-05-11] MEDS: 0.9 % Sodium Chloride 1,000 ML IVC SCH (07:54)
--- NOTE | 2016-05-11 08:05 | General Surgery Progress Note ---
<Don Joya - Last Filed: 05/11/16 11:32> Date of Encounter: 05/11/16 Time of Encounter: 07:15 - Assessment and Plan (1) Partial small bowel obstruction Current Visit: Yes Status: Acute Patient continues to improve. Will continue with conservative therapy at this time including: NG tube to LIWS 2 milk and molasses enemas to be given today 6 hours apart. IV fluids Supportive care/pain control Serial abdominal exams. NG output 500ml today (2) DVT prophylaxis Current Visit: Yes Status: Acute Heparin 5000 units SQ Q12hr Subjective Patient reports: no new complaints, feels better, pain is less, no flatus, no bowel movement, afebrile Narrative: The patient reports that her pain continues to decrease. She has not passed gas or had a bowel movement yet, but she feels as if her appetite is returning. Objective Vital Signs - Last 8 Hours Temp Pulse Resp BP Pulse Ox 05/11/16 07:00 97.9 F 73 16 135/65 95 05/11/16 05:20 98.5 F 65 15 107/64 93 L Intake and Output 05/10/16 05/11/16 05/11/16 23:59 07:59 15:59 Intake Total 673 / 673 579 / 579 Output Total 850 / 850 1250 / 1250 Balance -177 / -177 -671 / -671 Intake: IV Fluids 673 / 673 579 / 579 0.9 % Sodium Chloride 1, 373 / 373 279 / 279 000 ML @ 70 mls/hr IVC . [id number] JOSE R Rx#: [id number] Cipro 400 MG/200 ML 400 200 / 200 200 / 200 mg In 200 ml @ 200 mls/hr IVPB Q12HR JOSE R Rx#: [id number] Flagyl 500 MG/100 ML 500 100 / 100 100 / 100 mg In 100 ml @ 100 mls/hr IVPB Q8HR JOSE R Rx#: [id number] Output: Catheter 850 / 850 750 / 750 Gastric Drainage 500 / 500 Other: Meal NPO Percent of Meal Consumed 0% Weight 62.5 kg Blood Glucose* 64 80 Patient Weight 05/11/16 23:59 Weight 62.5 kg - General physical appearance well developed, well nourished, no distress - Eyes normal ocular movement - ENT normal mucosa - Neck Neck exam: trachea midline - Respiratory normal respiratory effort, clear to auscultation - Cardiovascular Cardiovascular exam: Present: RRR, no murmurs/rubs/gallops - Abdomen Abdomen: Present: bowel sounds present, soft, tender (mild tenderness diffusely to deep palpation). Absent: guarding - Integumentary no rash - Neurologic CN 2-12 grossly intact - Musculoskeletal normal posture - Psychiatric oriented to time, oriented to person, oriented to place, speech is normal, memory intact - Labs 05/10/16 06:01 05/10/16 04:00 Consult Discharge Plan - Plan Referrals: Levi Wooten MD [Primary Care Provider] - - Attending Attestation I examined this patient and my medical decision-making was reviewed with the DIRECTOR OF EVENTS/PA/Advanced Practice Nurse/Resident Physician. I agree with the documented findings, disposition and treatment plan as described except to the extent set forth below. <Walt Trejo - Last Filed: 05/12/16 06:19> Date of Encounter: 05/12/16 Objective Vital Signs - Last 8 Hours Temp Pulse Resp BP Pulse Ox 05/12/16 05:04 98.1 F 66 16 146/70 94 L 05/12/16 00:27 98.4 F 69 16 139/77 96 Intake and Output 05/11/16 05/11/16 05/12/16 15:59 23:59 07:59 Intake Total 1100 / 1100 774 / 774 400 / 400 Output Total 650 / 650 300 / 300 925 / 925 Balance 450 / 450 474 / 474 -525 / -525 Intake: IV Fluids 1100 / 1100 774 / 774 400 / 400 D5% And 0.45% Nacl 1000 1000 / 1000 474 / 474 300 / 300 Ml Bag 1,000 ML @ 75 mls/ hr IVC .[id number] JOSE R Rx#: [id number] Cipro 400 MG/200 ML 400 200 / 200 mg In 200 ml @ 200 mls/hr IVPB Q12HR JOSE R Rx#: [id number] Flagyl 500 MG/100 ML 500 100 / 100 100 / 100 100 / 100 mg In 100 ml @ 100 mls/hr IVPB Q8HR JOSE R Rx#: [id number] Oral 0 / 0 0 / 0 Output: Urine 200 / 200 625 / 625 Catheter 500 / 500 Gastric Drainage 150 / 150 100 / 100 300 / 300 Left Nare 100 / 100 Other: Meal NPO lunch NPO dinner Weight 62.199 kg Blood Glucose* 95 95 134 Patient Weight 05/12/16 23:59 Weight 62.199 kg - Labs 05/10/16 06:01 05/10/16 04:00 - Attending Attestation I reviewed the physical examination and assessment as mentioned above with the resident. Patient states that she feels somewhat better but no flatus and no bowel movements. Mild tympany with no pain to palpation and positive process. Continue with NG tube decompression and will start milk of molasses enemas 2 today. Will obtain an abdominal x-ray series tomorrow.
[2016-05-11] MEDS: MetroNIDAZOLE 500 MG/100 ML 500 MG/100 ML BAG IVPB SCH ×2 (08:27→15:57)
[2016-05-11] MEDS: Pantoprazole 40 MG VIAL IVP SCH (08:27)
--- NOTE | 2016-05-11 10:40 | Internal Med Progress Note ---
Date of Encounter: 05/11/16 Time of Encounter: 10:38 - Assessment and plan (1) Partial small bowel obstruction Current Visit: Yes Status: Acute Assessment and plan: h/o surgery fo rmalrotation. NG tube draining and will continue abdominal pain has imporved , no nausea or vomiting, but still appears distended and BS are still sluggish keep IVF, on ice chips will follow surgical recommendations conservative mx, continue IV ab (2) Nausea & vomiting Current Visit: No Status: Acute Assessment and plan: improved. Qualifiers: Vomiting type: unspecified Vomiting Intractability: unspecified Qualified Code(s): R11.2 - Nausea with vomiting, unspecified - Time Spent With Patient 25 - 35 minutes - Subjective Interval history: seen at the bedside, admitted for partial SBO. milenanet reports feeling the same, has not passed gas and no bowel movements. Abdominal pain much better, no nausea or vomiting. - Constitutional Vitals: Temp Pulse Resp BP Pulse Ox 97.9 F 73 16 135/65 95 05/11/16 07:00 05/11/16 07:00 05/11/16 07:00 05/11/16 07:00 05/11/16 07:00 General appearance: Present: A&O X 3, pleasant, no acute distress, answers questions appropriately Exam: - Head Head exam: Present: atraumatic, normocephalic - Eye Eye exam: Present: PERRL, conjuntiva pink, sclera anicteric Pupils: Present: PERRL - Neck Neck exam general surgery: Present: supple, trachea midline. Absent: lymphadenopathy - Respiratory Respiratory exam: Present: CTAB. Absent: accessory muscle use, rales, rhonchi, wheezes - Cardiovascular Cardiovascular exam: Present: RRR, +S1, +S2. Absent: diastolic murmur, gallop, rubs, systolic murmur - GI/Abdominal GI/Abdominal exam: Present: distended, sluggish bowel sounds, non tender. - Extremities Exam Extremities exam: Present: warm, radial pulses palpable and symetrical. Absent : calf tenderness, cyanotic, pedal edema - Neurological Exam Neurological exam: Present: CN II-XII intact, oriented X3, no focal deficits. Absent: pronater drift, facial droop, speech deficit - Skin Skin exam: Present: dry, intact Internal Medicine: Result - Labs CBC & Chem 7: 05/10/16 06:01 05/10/16 04:00 - ABG Interpretation ABG results: PT/INR, D-dimer PT 10.7 Seconds (9.4-12.1) 05/09/16 08:59 Consult Discharge Plan - Plan Referrals: Levi Wooten MD [Primary Care Provider] -
[2016-05-11] MEDS ORDERED: Ketorolac 15 MG/ML VIAL IVP ONE (11:35)
[2016-05-11] MEDS: D5% in 0.45% NACL 1,000 ML IVC SCH (15:57)
[2016-05-11] MEDS: *HR* Promethazine 25 MG/ML VIAL IVP PRN (20:10)
[2016-05-11] MEDS: Ketorolac 15 MG/ML VIAL IVP PRN (22:21)
[2016-05-12] MEDS: MetroNIDAZOLE 500 MG/100 ML 500 MG/100 ML BAG IVPB SCH ×4 (00:28→23:34)
[2016-05-12] MEDS: *HR* Heparin 5,000 UNIT/ML VIAL SQ SCH ×2 (05:50→18:19)
[2016-05-12] MEDS: Ketorolac 15 MG/ML VIAL IVP PRN ×3 (06:11→17:44)
[2016-05-12] MEDS: *HR* Promethazine 25 MG/ML VIAL IVP PRN ×2 (06:11→18:42)
--- NOTE | 2016-05-12 07:27 | General Surgery Progress Note ---
<Don Joya - Last Filed: 05/12/16 13:39> Date of Encounter: 05/12/16 Time of Encounter: 06:50 - Assessment and Plan (1) Partial small bowel obstruction Current Visit: Yes Status: Acute Patient demonstrates no improvement after milk and molasses enemas yesterday. Still no BM or flatus. Repeat abdominal imagining with small bowel follow through with gastrograffin. Will followup with results. Continue NG tube to LIWS IV fluids Supportive care/pain control Serial abdominal exams. NG output 750ml yesterday, and 300ml since midnight. (2) DVT prophylaxis Current Visit: Yes Status: Acute Heparin 5000 units SQ Q12hr Subjective Patient reports: no flatus, no bowel movement, nausea, afebrile Narrative: The patient reports that she feels somewhat nauseated after receiving the enemas yesterday. She states that nothing came out other than what they put in for the enema. She continues to not have any bowel movement and denies flatus. She still has some mild diffuse abdominal pain, which has improved since her arrival. She states she does feel as if she has an appetite. Objective Vital Signs - Last 8 Hours Temp Pulse Resp BP Pulse Ox 05/12/16 05:04 98.1 F 66 16 146/70 94 L 05/12/16 00:27 98.4 F 69 16 139/77 96 Intake and Output 05/11/16 05/11/16 05/12/16 15:59 23:59 07:59 Intake Total 1100 / 1100 774 / 774 400 / 400 Output Total 650 / 650 300 / 300 925 / 925 Balance 450 / 450 474 / 474 -525 / -525 Intake: IV Fluids 1100 / 1100 774 / 774 400 / 400 D5% And 0.45% Nacl 1000 1000 / 1000 474 / 474 300 / 300 Ml Bag 1,000 ML @ 75 mls/ hr IVC .[id number] JOSE R Rx#: [id number] Cipro 400 MG/200 ML 400 200 / 200 mg In 200 ml @ 200 mls/hr IVPB Q12HR JOSE R Rx#: [id number] Flagyl 500 MG/100 ML 500 100 / 100 100 / 100 100 / 100 mg In 100 ml @ 100 mls/hr IVPB Q8HR JOSE R Rx#: [id number] Oral 0 / 0 0 / 0 Output: Urine 200 / 200 625 / 625 Catheter 500 / 500 Gastric Drainage 150 / 150 100 / 100 300 / 300 Left Nare 100 / 100 Other: Meal NPO lunch NPO dinner Weight 62.199 kg Blood Glucose* 95 95 134 Patient Weight 05/12/16 23:59 Weight 62.199 kg - General physical appearance well developed, well nourished, no distress - Eyes normal ocular movement - ENT normal mucosa - Neck Neck exam: trachea midline - Respiratory normal respiratory effort, clear to auscultation - Cardiovascular Cardiovascular exam: Present: RRR, no murmurs/rubs/gallops - Abdomen Abdomen: Present: bowel sounds present, soft, distended, tender (mild and diffuse, worse on the left side of the abdomen) - Integumentary no rash - Neurologic CN 2-12 grossly intact - Musculoskeletal normal posture - Psychiatric oriented to time, oriented to person, oriented to place, speech is normal, memory intact - Labs 05/12/16 07:59 05/12/16 07:59 Consult Discharge Plan - Plan Referrals: Levi Wooten MD [Primary Care Provider] - - Attending Attestation I examined this patient and my medical decision-making was reviewed with the MONOLOGIST/PA/Advanced Practice Nurse/Resident Physician. I agree with the documented findings, disposition and treatment plan as described except to the extent set forth below. <Walt Trejo - Last Filed: 05/13/16 16:33> Date of Encounter: 05/13/16 Objective Vital Signs - Last 8 Hours Temp Pulse Resp BP Pulse Ox 05/13/16 15:26 98 F 74 16 147/71 96 Intake and Output 05/13/16 05/13/16 05/13/16 07:59 15:59 23:59 Intake Total 700 / 700 900 / 900 Output Total 1500 / 1500 725 / 725 Balance -800 / -800 175 / 175 Intake: IV Fluids 700 / 700 900 / 900 D5% And 0.45% Nacl 1000 400 / 400 600 / 600 Ml Bag 1,000 ML @ 100 mls /hr IVC .Q10H JOSE R Rx#: [id number] Cipro 400 MG/200 ML 400 200 / 200 mg In 200 ml @ 200 mls/hr IVPB Q12HR JOSE R Rx#: [id number] Flagyl 500 MG/100 ML 500 100 / 100 100 / 100 mg In 100 ml @ 100 mls/hr IVPB Q8HR JOSE R Rx#: [id number] Potassium Chloride 10 mEq 200 / 200 /100mL 10 meq In 100 ml @ 100 mls/hr IVPB Q1H JOSE R Rx#:[id number] Oral 0 / 0 Output: Catheter 1500 / 1500 725 / 725 Other: Blood Glucose* 138 - Labs 05/12/16 07:59 05/13/16 12:32 Diabetes panel 05/13/16 Range/Units 12:32 Sodium 142 (136-145) mEq/L Potassium 4.8 H D (3.5-4.5) mEq/L Chloride 109 (98-109) mEq/L Carbon Dioxide 22 (19-29) mEq/L BUN 9 (7-20) mg/dL Creatinine 0.75 (0.57-1.11) mg/dL Glucose 130 H (70-99) mg/dL Calcium 9.6 D (8.6-10.8) mg/dL Calcium panel 05/13/16 Range/Units 12:32 Calcium 9.6 D (8.6-10.8) mg/dL Pituitary panel 05/13/16 Range/Units 12:32 Sodium 142 (136-145) mEq/L Potassium 4.8 H D (3.5-4.5) mEq/L Chloride 109 (98-109) mEq/L Carbon Dioxide 22 (19-29) mEq/L BUN 9 (7-20) mg/dL Creatinine 0.75 (0.57-1.11) mg/dL Glucose 130 H (70-99) mg/dL Calcium 9.6 D (8.6-10.8) mg/dL Adrenal panel 05/13/16 Range/Units 12:32 Sodium 142 (136-145) mEq/L Potassium 4.8 H D (3.5-4.5) mEq/L Chloride 109 (98-109) mEq/L Carbon Dioxide 22 (19-29) mEq/L BUN 9 (7-20) mg/dL Creatinine 0.75 (0.57-1.11) mg/dL Glucose 130 H (70-99) mg/dL Calcium 9.6 D (8.6-10.8) mg/dL - Attending Attestation Noted physical exam and assessment findings as mentioned above. Patient has some mild increased pain. No flatus or bowel movements. Positive bowel sounds on examination. Will go ahead and order small bowel follow-through today.
[2016-05-12 08:17] LABS: Basophils % 0.3 %; Eosinophils # 0.2 K/mcL (0.0-0.6); Eosinophils % 2.5 %; Hematocrit 35.8 % (35.3-44.9); Hemoglobin 12.2 g/dL (11.5-15.4); Immature Granulocytes % 1.3 % (0-4); Immature Platelets 2.1 % (1.1-6.1); Lymphocytes # 0.8 K/mcL (0.6-4.6); Lymphocytes % 10.4 %; Mean Corpuscular HGB Conc 34.1 g/dL (31.6-35.5); Mean Corpuscular Hemoglobin 32.3 pg (28.0-33.3); Mean Corpuscular Volume 94.7 fL (83.0-100.0); Mean Platelet Volume 9.6 fL (9.4-12.4); Monocytes # 0.8 K/mcL (0.0-1.3); Monocytes % 9.8 %; Neutrophils # 5.8 K/mcL (1.6-8.9); Platelet Count 296 K/mcL (140-400); Red Blood Count 3.78 M/mcL (3.82-4.97); Red Cell Distribution Width 12.8 % (11.5-14.5); Segmented Neutrophils % 75.7 %
[2016-05-12 08:30] LABS: BUN/Creatinine Ratio 17 (6-26); Calcium 8.2 mg/dL (8.6-10.8); Carbon Dioxide 26 mEq/L (19-29); Chloride 105 mEq/L (98-109); Glucose 114 mg/dL (70-99); Osmolality,Calculated 291 (280-300); Sodium 140 mEq/L (136-145); eGFR For African Americans > 60 (> 60); eGFR For Non-African Americans > 60 (> 60)
[2016-05-12 08:32] LABS: Blood Urea Nitrogen 12 mg/dL (7-20)
[2016-05-12] MEDS: Pantoprazole 40 MG VIAL IVP SCH (08:56)
[2016-05-12] MEDS: D5% in 0.45% NACL 1,000 ML IVC SCH (09:46)
--- NOTE | 2016-05-12 13:51 | Internal Med Progress Note ---
Date of Encounter: 05/12/16 Time of Encounter: 13:48 - Assessment and plan (1) Partial small bowel obstruction Current Visit: Yes Status: Acute Assessment and plan: h/o surgery fo rmalrotation. NG tube draining and will continue abdominal pain has not improved, s/p enema yesterday, has nausea today. keep IVF, on ice chips will follow surgical recommendations conservative mx, continue IV ab (2) Nausea & vomiting Current Visit: No Status: Acute Assessment and plan: will continue the IV phenergan q6h for now, will monitor. Qualifiers: Vomiting type: unspecified Vomiting Intractability: unspecified Qualified Code(s): R11.2 - Nausea with vomiting, unspecified - Time Spent With Patient 25 - 35 minutes - Subjective Interval history: seen at the bedside, admitted for partial SBO. joseph reports feeling the same, has not passed gas and no bowel movements. feels nauseated today - Constitutional Vitals: Temp Pulse Resp BP Pulse Ox 98.2 F 70 17 134/71 95 05/12/16 11:00 05/12/16 11:00 05/12/16 11:00 05/12/16 11:00 05/12/16 11:00 General appearance: Present: A&O X 3, pleasant, no acute distress, answers questions appropriately Exam: - Head Head exam: Present: atraumatic, normocephalic - Eye Eye exam: Present: PERRL, conjuntiva pink, sclera anicteric Pupils: Present: PERRL - Neck Neck exam general surgery: Present: supple, trachea midline. Absent: lymphadenopathy - Respiratory Respiratory exam: Present: CTAB. Absent: accessory muscle use, rales, rhonchi, wheezes - Cardiovascular Cardiovascular exam: Present: RRR, +S1, +S2. Absent: diastolic murmur, gallop, rubs, systolic murmur - GI/Abdominal GI/Abdominal exam: Present: distended, absent bowel sounds, non tender. - Extremities Exam Extremities exam: Present: warm, radial pulses palpable and symetrical. Absent : calf tenderness, cyanotic, pedal edema - Neurological Exam Neurological exam: Present: CN II-XII intact, oriented X3, no focal deficits. Absent: pronater drift, facial droop, speech deficit - Skin Skin exam: Present: dry, intact Internal Medicine: Result - Labs CBC & Chem 7: 05/12/16 07:59 05/12/16 07:59 Labs: Short CBC 05/12/16 Range/Units 07:59 WBC 7.7 (4.3-11.1) K/mcL Hgb 12.2 (11.5-15.4) g/dL Hct 35.8 (35.3-44.9) % Plt Count 296 (140-400) K/mcL Neutrophils # 5.8 (1.6-8.9) K/mcL BMP 05/12/16 07:59 Sodium 140 Potassium 3.0 L D Chloride 105 Carbon Dioxide 26 BUN 12 D Creatinine 0.69 Glucose 114 H Calcium 8.2 L - ABG Interpretation ABG results: PT/INR, D-dimer PT 10.7 Seconds (9.4-12.1) 05/09/16 08:59 Consult Discharge Plan - Plan Referrals: Levi Wooten MD [Primary Care Provider] -
[2016-05-12] MEDS: BuPROPion SR (12 HR) 100 MG TABLET PO SCH (14:53)
[2016-05-12] MEDS: *HR* Morphine 2 MG/ML SYRINGE IVP PRN (19:48)
[2016-05-12] MEDS ORDERED: methylPREDNISolone 4 MG TABLET PO ONE (20:30)
[2016-05-13] MEDS: D5% in 0.45% NACL 1,000 ML IVC SCH ×2 (02:02→15:31)
[2016-05-13] MEDS: *HR* Heparin 5,000 UNIT/ML VIAL SQ SCH ×2 (05:16→17:49)
[2016-05-13] MEDS ORDERED: methylPREDNISolone 4 MG TABLET PO ONE (06:30)
[2016-05-13] MEDS: *HR* Promethazine 25 MG/ML VIAL IVP PRN ×3 (06:47→21:20)
--- NOTE | 2016-05-13 07:29 | General Surgery Progress Note ---
<Don Joya - Last Filed: 05/13/16 07:35> Date of Encounter: 05/13/16 Time of Encounter: 07:26 - Assessment and Plan (1) Partial small bowel obstruction Current Visit: Yes Status: Acute Still no BM or flatus. Repeat abdominal imagining with small bowel follow through with gastrograffin was delayed due to contrast allergy. The patient has been premedicated with methylprednisolone and benadryl as recommended for the imaging study. SBFT will be done today. Will followup with results. Continue NG tube to LIWS IV fluids Supportive care/pain control Serial abdominal exams. NG output 450ml yesterday, and 350ml since midnight. (2) DVT prophylaxis Current Visit: Yes Status: Acute Heparin 5000 units SQ Q12hr Subjective Patient reports: no new complaints, still having pain, no flatus, no bowel movement, nausea, afebrile Narrative: The patient reports she essentially feels the same as yesterday. She has some abdominal pain and has been feeling bloated and nauseated. Objective Vital Signs - Last 8 Hours Temp Pulse Resp BP Pulse Ox 05/13/16 04:13 98.0 F 65 16 116/72 97 Intake and Output 05/12/16 05/12/16 05/13/16 15:59 23:59 07:59 Intake Total 426 / 426 500 / 500 200 / 200 Output Total 500 / 500 250 / 250 1100 / 1100 Balance -74 / -74 250 / 250 -900 / -900 Intake: IV Fluids 426 / 426 500 / 500 200 / 200 D5% And 0.45% Nacl 1000 226 / 226 Ml Bag 1,000 ML @ 75 mls/ hr IVC .[id number] JOSE R Rx#: [id number] Cipro 400 MG/200 ML 400 200 / 200 mg In 200 ml @ 200 mls/hr IVPB Q12HR JOSE R Rx#: [id number] Flagyl 500 MG/100 ML 500 100 / 100 100 / 100 mg In 100 ml @ 100 mls/hr IVPB Q8HR JOSE R Rx#: [id number] Potassium Chloride 10 mEq 100 / 100 200 / 200 200 / 200 /100mL 10 meq In 100 ml @ 100 mls/hr IVPB Q1H JOSE R Rx#:[id number] Oral 0 / 0 0 / 0 0 / 0 Output: Catheter 400 / 400 250 / 250 1100 / 1100 Gastric Drainage 100 / 100 Other: Meal NPO npo Percent of Meal Consumed 0% 0% Blood Glucose* 113 75 138 - General physical appearance well developed, well nourished, no distress - Eyes normal ocular movement - ENT normal mucosa - Neck Neck exam: trachea midline - Respiratory normal respiratory effort, clear to auscultation - Cardiovascular Cardiovascular exam: Present: RRR, no murmurs/rubs/gallops - Abdomen Abdomen: Present: bowel sounds present, soft, distended, tender (diffusely to moderate plapation) - Integumentary no rash - Neurologic CN 2-12 grossly intact - Musculoskeletal normal posture - Psychiatric oriented to time, oriented to person, oriented to place, speech is normal, memory intact - Labs 05/12/16 07:59 05/12/16 07:59 Diabetes panel 05/12/16 Range/Units 07:59 Sodium 140 (136-145) mEq/L Potassium 3.0 L D (3.5-4.5) mEq/L Chloride 105 (98-109) mEq/L Carbon Dioxide 26 (19-29) mEq/L BUN 12 D (7-20) mg/dL Creatinine 0.69 (0.57-1.11) mg/dL Glucose 114 H (70-99) mg/dL Calcium 8.2 L (8.6-10.8) mg/dL Calcium panel 05/12/16 Range/Units 07:59 Calcium 8.2 L (8.6-10.8) mg/dL Pituitary panel 05/12/16 Range/Units 07:59 Sodium 140 (136-145) mEq/L Potassium 3.0 L D (3.5-4.5) mEq/L Chloride 105 (98-109) mEq/L Carbon Dioxide 26 (19-29) mEq/L BUN 12 D (7-20) mg/dL Creatinine 0.69 (0.57-1.11) mg/dL Glucose 114 H (70-99) mg/dL Calcium 8.2 L (8.6-10.8) mg/dL Adrenal panel 05/12/16 Range/Units 07:59 Sodium 140 (136-145) mEq/L Potassium 3.0 L D (3.5-4.5) mEq/L Chloride 105 (98-109) mEq/L Carbon Dioxide 26 (19-29) mEq/L BUN 12 D (7-20) mg/dL Creatinine 0.69 (0.57-1.11) mg/dL Glucose 114 H (70-99) mg/dL Calcium 8.2 L (8.6-10.8) mg/dL Consult Discharge Plan - Plan Referrals: Levi Wooten MD [Primary Care Provider] - - Attending Attestation I examined this patient and my medical decision-making was reviewed with the DIRECTOR OF ADULT EPILEPSY/PA/Advanced Practice Nurse/Resident Physician. I agree with the documented findings, disposition and treatment plan as described except to the extent set forth below. <Walt Trejo - Last Filed: 05/13/16 16:35> Date of Encounter: 05/13/16 Objective Vital Signs - Last 8 Hours Temp Pulse Resp BP Pulse Ox 05/13/16 15:26 98 F 74 16 147/71 96 Intake and Output 05/13/16 05/13/16 05/13/16 07:59 15:59 23:59 Intake Total 700 / 700 900 / 900 Output Total 1500 / 1500 725 / 725 Balance -800 / -800 175 / 175 Intake: IV Fluids 700 / 700 900 / 900 D5% And 0.45% Nacl 1000 400 / 400 600 / 600 Ml Bag 1,000 ML @ 100 mls /hr IVC .Q10H JOSE R Rx#: [id number] Cipro 400 MG/200 ML 400 200 / 200 mg In 200 ml @ 200 mls/hr IVPB Q12HR JOSE R Rx#: [id number] Flagyl 500 MG/100 ML 500 100 / 100 100 / 100 mg In 100 ml @ 100 mls/hr IVPB Q8HR JOSE R Rx#: [id number] Potassium Chloride 10 mEq 200 / 200 /100mL 10 meq In 100 ml @ 100 mls/hr IVPB Q1H JOSE R Rx#:[id number] Oral 0 / 0 Output: Catheter 1500 / 1500 725 / 725 Other: Blood Glucose* 138 - Labs 05/12/16 07:59 05/13/16 12:32 Diabetes panel 05/13/16 Range/Units 12:32 Sodium 142 (136-145) mEq/L Potassium 4.8 H D (3.5-4.5) mEq/L Chloride 109 (98-109) mEq/L Carbon Dioxide 22 (19-29) mEq/L BUN 9 (7-20) mg/dL Creatinine 0.75 (0.57-1.11) mg/dL Glucose 130 H (70-99) mg/dL Calcium 9.6 D (8.6-10.8) mg/dL Calcium panel 05/13/16 Range/Units 12:32 Calcium 9.6 D (8.6-10.8) mg/dL Pituitary panel 05/13/16 Range/Units 12:32 Sodium 142 (136-145) mEq/L Potassium 4.8 H D (3.5-4.5) mEq/L Chloride 109 (98-109) mEq/L Carbon Dioxide 22 (19-29) mEq/L BUN 9 (7-20) mg/dL Creatinine 0.75 (0.57-1.11) mg/dL Glucose 130 H (70-99) mg/dL Calcium 9.6 D (8.6-10.8) mg/dL Adrenal panel 05/13/16 Range/Units 12:32 Sodium 142 (136-145) mEq/L Potassium 4.8 H D (3.5-4.5) mEq/L Chloride 109 (98-109) mEq/L Carbon Dioxide 22 (19-29) mEq/L BUN 9 (7-20) mg/dL Creatinine 0.75 (0.57-1.11) mg/dL Glucose 130 H (70-99) mg/dL Calcium 9.6 D (8.6-10.8) mg/dL - Attending Attestation I evaluated the physical exam assessment as mentioned above. Patient was unable to have the small bowel follow-through yesterday due to an allergy to contrast. She was given steroids as a prep and the SBF was performed today which demonstrated passage into the colon. Will write for Miralax/gatorade via the NGT (half) to aid in BMs.
[2016-05-13] MEDS: MetroNIDAZOLE 500 MG/100 ML 500 MG/100 ML BAG IVPB SCH ×2 (07:47→15:32)
--- NOTE | 2016-05-13 07:49 | Internal Med Progress Note ---
Date of Encounter: 05/13/16 - Constitutional Vitals: Temp Pulse Resp BP Pulse Ox 97.7 F 69 14 135/69 97 05/13/16 07:29 05/13/16 07:29 05/13/16 07:29 05/13/16 07:29 05/13/16 07:29 General appearance: Present: A&O X 3, pleasant, no acute distress, answers questions appropriately Internal Medicine: Result - Labs CBC & Chem 7: 05/12/16 07:59 05/12/16 07:59 Labs: Short CBC 05/12/16 Range/Units 07:59 WBC 7.7 (4.3-11.1) K/mcL Hgb 12.2 (11.5-15.4) g/dL Hct 35.8 (35.3-44.9) % Plt Count 296 (140-400) K/mcL Neutrophils # 5.8 (1.6-8.9) K/mcL BMP 05/12/16 07:59 Sodium 140 Potassium 3.0 L D Chloride 105 Carbon Dioxide 26 BUN 12 D Creatinine 0.69 Glucose 114 H Calcium 8.2 L - ABG Interpretation ABG results: PT/INR, D-dimer PT 10.7 Seconds (9.4-12.1) 05/09/16 08:59 Consult Discharge Plan - Plan Referrals: Levi Wooten MD [Primary Care Provider] -
[2016-05-13] MEDS: Pantoprazole 40 MG VIAL IVP SCH (10:29)
[2016-05-13] MEDS: BuPROPion SR (12 HR) 100 MG TABLET PO SCH (10:29)
[2016-05-13] MEDS ORDERED: Milk and Molasses Enema 200 ML RC ONE (13:34)
[2016-05-13 14:40] LABS: BUN/Creatinine Ratio 12 (6-26); Blood Urea Nitrogen 9 mg/dL (7-20); Carbon Dioxide 22 mEq/L (19-29); Chloride 109 mEq/L (98-109); Glucose 130 mg/dL (70-99); Osmolality,Calculated 294 (280-300); Sodium 142 mEq/L (136-145); eGFR For African Americans > 60 (> 60); eGFR For Non-African Americans > 60 (> 60)
[2016-05-13 14:41] LABS: Calcium 9.6 mg/dL (8.6-10.8); Potassium 4.8 mEq/L (3.5-4.5)
[2016-05-13] MEDS ORDERED: Polyethylene Glycol 3350 255 GM POWDER PO ONE (15:27)
[2016-05-13] MEDS: Ketorolac 15 MG/ML VIAL IVP PRN (21:34)
[2016-05-14] MEDS: MetroNIDAZOLE 500 MG/100 ML 500 MG/100 ML BAG IVPB SCH ×4 (00:17→23:18)
[2016-05-14] MEDS: D5% in 0.45% NACL 1,000 ML IVC SCH (03:20)
[2016-05-14] MEDS: *HR* Promethazine 25 MG/ML VIAL IVP PRN (03:48)
[2016-05-14] MEDS: *HR* Heparin 5,000 UNIT/ML VIAL SQ SCH ×2 (07:13→20:38)
--- NOTE | 2016-05-14 07:51 | General Surgery Progress Note ---
<Don Joya - Last Filed: 05/14/16 11:58> Date of Encounter: 05/14/16 Time of Encounter: 07:35 - Assessment and Plan (1) Partial small bowel obstruction Current Visit: Yes Status: Acute SBFT demonstrated contrast all the way to the rectum. Miralax with gatorade was given through the NG tube, and the patient subsequently had 2 BMs. Discontinue NG tube Advance to clear liquids IV fluids Supportive care/pain control Serial abdominal exams. NG output 0ml yesterday and none recorded today. (2) DVT prophylaxis Current Visit: Yes Status: Acute Heparin 5000 units SQ Q12hr Subjective Patient reports: no new complaints, feels better, pain is less, voiding w/o difficulty, no flatus, bowel movement, afebrile Narrative: The patient reports that she had 2 bowel movements after she was given the gatorade and miralax through her NG tube yesterday. She feels much better today , is having less abdominal pain, and states her appetite has increased. She wishes to have her NG pulled today. Objective Vital Signs - Last 8 Hours Temp Pulse Resp BP Pulse Ox 05/14/16 04:25 97.8 F 65 14 124/70 97 Intake and Output 05/13/16 05/13/16 05/14/16 15:59 23:59 07:59 Intake Total 900 / 900 508 / 508 792 / 792 Output Total 725 / 725 400 / 400 Balance 175 / 175 108 / 108 792 / 792 Intake: IV Fluids 900 / 900 508 / 508 792 / 792 D5% And 0.45% Nacl 1000 600 / 600 208 / 208 792 / 792 Ml Bag 1,000 ML @ 100 mls /hr IVC .Q10H JOSE R Rx#: [id number] Cipro 400 MG/200 ML 400 200 / 200 200 / 200 mg In 200 ml @ 200 mls/hr IVPB Q12HR JOSE R Rx#: [id number] Flagyl 500 MG/100 ML 500 100 / 100 100 / 100 mg In 100 ml @ 100 mls/hr IVPB Q8HR JOSE R Rx#: [id number] Oral 0 / 0 Output: Urine 0 / 0 Urine/Stool Mix 400 / 400 Catheter 725 / 725 Gastric Drainage 0 / 0 Other: Stool Size Moderate Stool Consistency formed Stool Color Brown Weight 63.7 kg Blood Glucose* 138 98 Patient Weight 05/14/16 23:59 Weight 63.7 kg - General physical appearance well developed, well nourished, no distress - Eyes normal ocular movement - ENT normal mucosa, atraumatic, normocephalic, Other (NG tube in place) - Neck Neck exam: trachea midline - Respiratory normal respiratory effort, clear to auscultation - Cardiovascular Cardiovascular exam: Present: RRR, no murmurs/rubs/gallops - Abdomen Abdomen: Present: bowel sounds present, soft. Absent: distended, guarding Abdominal Tenderness: LLQ (Very mild tenderness to deep plapation in the LLQ) - Neurologic CN 2-12 grossly intact - Musculoskeletal normal posture - Psychiatric oriented to time, oriented to person, oriented to place, speech is normal, memory intact - Labs 05/12/16 07:59 05/13/16 12:32 Diabetes panel 05/13/16 Range/Units 12:32 Sodium 142 (136-145) mEq/L Potassium 4.8 H D (3.5-4.5) mEq/L Chloride 109 (98-109) mEq/L Carbon Dioxide 22 (19-29) mEq/L BUN 9 (7-20) mg/dL Creatinine 0.75 (0.57-1.11) mg/dL Glucose 130 H (70-99) mg/dL Calcium 9.6 D (8.6-10.8) mg/dL Calcium panel 05/13/16 Range/Units 12:32 Calcium 9.6 D (8.6-10.8) mg/dL Pituitary panel 05/13/16 Range/Units 12:32 Sodium 142 (136-145) mEq/L Potassium 4.8 H D (3.5-4.5) mEq/L Chloride 109 (98-109) mEq/L Carbon Dioxide 22 (19-29) mEq/L BUN 9 (7-20) mg/dL Creatinine 0.75 (0.57-1.11) mg/dL Glucose 130 H (70-99) mg/dL Calcium 9.6 D (8.6-10.8) mg/dL Adrenal panel 05/13/16 Range/Units 12:32 Sodium 142 (136-145) mEq/L Potassium 4.8 H D (3.5-4.5) mEq/L Chloride 109 (98-109) mEq/L Carbon Dioxide 22 (19-29) mEq/L BUN 9 (7-20) mg/dL Creatinine 0.75 (0.57-1.11) mg/dL Glucose 130 H (70-99) mg/dL Calcium 9.6 D (8.6-10.8) mg/dL Consult Discharge Plan - Plan Referrals: Levi Wooten MD [Primary Care Provider] - - Attending Attestation I examined this patient and my medical decision-making was reviewed with the PAPER CLEANER/PA/Advanced Practice Nurse/Resident Physician. I agree with the documented findings, disposition and treatment plan as described except to the extent set forth below. <Walt Trejo - Last Filed: 05/15/16 08:02> Objective Vital Signs - Last 8 Hours Temp Pulse Resp BP Pulse Ox 05/15/16 07:18 97.8 F 66 16 117/71 96 05/15/16 03:54 97.7 F 62 16 131/58 97 05/15/16 00:52 97.5 F L 71 16 117/63 95 Intake and Output 05/14/16 05/15/16 05/15/16 23:59 07:59 15:59 Intake Total 300 / 300 1250 / 1250 Output Total 300 / 300 400 / 400 Balance 0 / 0 850 / 850 Intake: IV Fluids 300 / 300 100 / 100 Cipro 400 MG/200 ML 400 200 / 200 mg In 200 ml @ 200 mls/hr IVPB Q12HR JOSE R Rx#: [id number] Flagyl 500 MG/100 ML 500 100 / 100 100 / 100 mg In 100 ml @ 100 mls/hr IVPB Q8HR JOSE R Rx#: [id number] Oral 0 / 0 1150 / 1150 Output: Urine 300 / 300 400 / 400 Other: Meal Dinner Percent of Meal Consumed 0% # Voids 2 Weight 62.9 kg Patient Weight 05/15/16 23:59 Weight 62.9 kg - Labs 05/14/16 11:32 05/13/16 12:32 - Attending Attestation I evaluated the patient and review the assessment with the resident. NG tube has been removed and she is been advanced to clear liquids. She has less abdominal pain and did have one bowel movement. We will change her MiraLAX to magnesium citrate she had nausea and vomiting with the MiraLAX. Overall she is continued to improve. No pain to palpation.
[2016-05-14] MEDS: Pantoprazole 40 MG VIAL IVP SCH (08:06)
[2016-05-14] MEDS: BuPROPion SR (12 HR) 100 MG TABLET PO SCH ×2 (08:07→12:52)
[2016-05-14] MEDS ORDERED: Polyethylene Glycol 3350 255 GM POWDER PO ONE (09:54)
[2016-05-14] MEDS: Ketorolac 15 MG/ML VIAL IVP PRN ×2 (10:02→23:18)
[2016-05-14] MEDS ORDERED: Ondansetron 4 MG/2 ML VIAL IVP PRN (10:37)
[2016-05-14] MEDS ORDERED: D5% in 0.45% NACL 1,000 ML IVC SCH (10:40)
[2016-05-14] MEDS ORDERED: *HR* Promethazine 25 MG/ML VIAL IVP PRN (10:44)
[2016-05-14 12:11] LABS: Basophils % 0.3 %; Eosinophils # 0.3 K/mcL (0.0-0.6); Hematocrit 41.5 % (35.3-44.9); Hemoglobin 13.6 g/dL (11.5-15.4); Immature Granulocytes % 1.4 % (0-4); Lymphocytes # 1.3 K/mcL (0.6-4.6); Lymphocytes % 12.5 %; Mean Corpuscular HGB Conc 32.8 g/dL (31.6-35.5); Mean Corpuscular Hemoglobin 31.1 pg (28.0-33.3); Mean Platelet Volume 9.6 fL (9.4-12.4); Monocytes # 0.7 K/mcL (0.0-1.3); Monocytes % 6.4 %; Neutrophils # 8.2 K/mcL (1.6-8.9); Platelet Count 349 K/mcL (140-400); Red Blood Count 4.37 M/mcL (3.82-4.97); Red Cell Distribution Width 13.3 % (11.5-14.5); Segmented Neutrophils % 76.4 %
--- NOTE | 2016-05-14 13:20 | Internal Med Progress Note ---
Date of Encounter: 05/14/16 Time of Encounter: 13:18 - Assessment and plan (1) Partial small bowel obstruction Current Visit: Yes Status: Acute Assessment and plan: h/o surgery fo rmalrotation. dc NG tube today s/p enema and 2 bowel movements. started on clears today, will observe for pain, nausea. will follow surgical recommendations conservative mx, continue IV ab (2) Nausea & vomiting Current Visit: No Status: Acute Assessment and plan: will continue to monitor clinically improved. Qualifiers: Vomiting type: unspecified Vomiting Intractability: unspecified Qualified Code(s): R11.2 - Nausea with vomiting, unspecified - Time Spent With Patient 25 - 35 minutes - Subjective Interval history: seen at the bedside, admitted for partial SBO. joseph reports feeling much better today, has had 2 bowel movements last night after MiraLAX enema. Plan to discontinue the NG daily and advance to clear liquids. - Constitutional Vitals: Temp Pulse Resp BP Pulse Ox 98.2 F 68 16 136/72 96 05/14/16 10:47 05/14/16 10:47 05/14/16 10:47 05/14/16 10:47 05/14/16 10:47 General appearance: Present: A&O X 3, pleasant, no acute distress, answers questions appropriately Exam: - Head Head exam: Present: atraumatic, normocephalic - Eye Eye exam: Present: PERRL, conjuntiva pink, sclera anicteric Pupils: Present: PERRL - Neck Neck exam general surgery: Present: supple, trachea midline. Absent: lymphadenopathy - Respiratory Respiratory exam: Present: CTAB. Absent: accessory muscle use, rales, rhonchi, wheezes - Cardiovascular Cardiovascular exam: Present: RRR, +S1, +S2. Absent: diastolic murmur, gallop, rubs, systolic murmur - GI/Abdominal GI/Abdominal exam: Present: Less distended today, few bowel sounds, nontender - Extremities Exam Extremities exam: Present: warm, radial pulses palpable and symetrical. Absent : calf tenderness, cyanotic, pedal edema - Neurological Exam Neurological exam: Present: CN II-XII intact, oriented X3, no focal deficits. Absent: pronater drift, facial droop, speech deficit - Skin Skin exam: Present: dry, intact Internal Medicine: Result - Labs CBC & Chem 7: 05/14/16 11:32 05/13/16 12:32 Labs: Short CBC 05/14/16 Range/Units 11:32 WBC 10.7 (4.3-11.1) K/mcL Hgb 13.6 (11.5-15.4) g/dL Hct 41.5 (35.3-44.9) % Plt Count 349 (140-400) K/mcL Neutrophils # 8.2 (1.6-8.9) K/mcL BMP 05/13/16 12:32 Sodium 142 Potassium 4.8 H D Chloride 109 Carbon Dioxide 22 BUN 9 Creatinine 0.75 Glucose 130 H Calcium 9.6 D - ABG Interpretation ABG results: PT/INR, D-dimer PT 10.7 Seconds (9.4-12.1) 05/09/16 08:59 Consult Discharge Plan - Plan Referrals: Levi Wooten MD [Primary Care Provider] -
[2016-05-14] MEDS ORDERED: *HR* HYDROmorphone (PF) 1 MG/ML SYRINGE ONE (15:25)
[2016-05-15] MEDS: *HR* Heparin 5,000 UNIT/ML VIAL SQ SCH ×2 (05:36→17:21)
--- NOTE | 2016-05-15 08:18 | General Surgery Progress Note ---
<Don Joya - Last Filed: 05/15/16 10:59> Date of Encounter: 05/15/16 Time of Encounter: 07:30 - Assessment and Plan (1) Partial small bowel obstruction Current Visit: Yes Status: Acute Patient continues to have BMs Tolerating clear liquid diet well, advance to full liquids Advanced to soft foods for dinner. IV fluids Supportive care/pain control Serial abdominal exams. From a surgical standpoint the patient is cleared for discharge if she is able to tolerate soft foods for dinner this evening. (2) DVT prophylaxis Current Visit: Yes Status: Acute Heparin 5000 units SQ Q12hr Subjective Patient reports: no new complaints, feels better, tolerating liquids well, voiding w/o difficulty, flatus, bowel movement, afebrile Objective Vital Signs - Last 8 Hours Temp Pulse Resp BP Pulse Ox 05/15/16 07:18 97.8 F 66 16 117/71 96 05/15/16 03:54 97.7 F 62 16 131/58 97 05/15/16 00:52 97.5 F L 71 16 117/63 95 Intake and Output 05/14/16 05/15/16 05/15/16 23:59 07:59 15:59 Intake Total 300 / 300 1250 / 1250 Output Total 300 / 300 400 / 400 Balance 0 / 0 850 / 850 Intake: IV Fluids 300 / 300 100 / 100 Cipro 400 MG/200 ML 400 200 / 200 mg In 200 ml @ 200 mls/hr IVPB Q12HR JOSE R Rx#: [id number] Flagyl 500 MG/100 ML 500 100 / 100 100 / 100 mg In 100 ml @ 100 mls/hr IVPB Q8HR JOSE R Rx#: [id number] Oral 0 / 0 1150 / 1150 Output: Urine 300 / 300 400 / 400 Other: Meal Dinner Percent of Meal Consumed 0% # Voids 2 Weight 62.9 kg Patient Weight 05/15/16 23:59 Weight 62.9 kg - General physical appearance well developed, well nourished, no distress - Eyes normal ocular movement - ENT normal mucosa, atraumatic, normocephalic - Neck Neck exam: trachea midline - Respiratory normal respiratory effort, clear to auscultation - Cardiovascular Cardiovascular exam: Present: RRR - Abdomen Abdomen: Present: bowel sounds present, soft. Absent: distended Abdominal Tenderness: LLQ (mildly tender) - Integumentary no rash - Neurologic CN 2-12 grossly intact - Musculoskeletal normal posture - Psychiatric oriented to time, oriented to person, oriented to place, speech is normal, memory intact - Labs 05/14/16 11:32 05/13/16 12:32 Consult Discharge Plan - Plan Referrals: [facility], [facility] [Other] - 05/21/16 11:15 am ([facility] Appointment is at 11:15, but please arrive at 11:00. Thank you) Levi Wooten MD [Primary Care Provider] - - Attending Attestation I examined this patient and my medical decision-making was reviewed with the PARA OPERATOR/PA/Advanced Practice Nurse/Resident Physician. I agree with the documented findings, disposition and treatment plan as described except to the extent set forth below. <Walt Trejo - Last Filed: 05/15/16 18:08> Objective Vital Signs - Last 8 Hours Temp Pulse Resp BP Pulse Ox 05/15/16 14:28 97.9 F 74 16 101/55 96 Intake and Output 05/15/16 05/15/16 05/15/16 07:59 15:59 23:59 Intake Total 1450 / 1450 460 / 460 Output Total 400 / 400 400 / 400 Balance 1050 / 1050 60 / 60 Intake: IV Fluids 300 / 300 100 / 100 Cipro 400 MG/200 ML 400 200 / 200 mg In 200 ml @ 200 mls/hr IVPB Q12HR JOSE R Rx#: [id number] Flagyl 500 MG/100 ML 500 100 / 100 100 / 100 mg In 100 ml @ 100 mls/hr IVPB Q8HR JOSE R Rx#: [id number] Oral 1150 / 1150 360 / 360 Output: Urine 400 / 400 400 / 400 Other: Meal Lunch Percent of Meal Consumed 75% Weight 62.9 kg Patient Weight 05/15/16 23:59 Weight 62.9 kg - Labs 05/14/16 11:32 05/13/16 12:32 - Attending Attestation I reviewed the patient's physicial exam and assessment. Mild pain but improving. No nausea or vomiting. Positive bowel movements and flatus. Minimal pain on palpation. Will advance to full liquids for lunch and if tolerates, ok to advance to soft foods. Once she tolerates then from our perspective she is ok to be discharged home.
[2016-05-15] MEDS: BuPROPion SR (12 HR) 100 MG TABLET PO SCH (09:44)
[2016-05-15] MEDS: Pantoprazole 40 MG VIAL IVP SCH (09:44)
[2016-05-15] MEDS: MetroNIDAZOLE 500 MG/100 ML 500 MG/100 ML BAG IVPB SCH ×3 (09:47→17:38)
[2016-05-15] MEDS ORDERED: metroNIDAZOLE 500 MG TABLET PO ONE (19:33)
[2016-05-16] MEDS: *HR* Heparin 5,000 UNIT/ML VIAL SQ SCH (05:54)
[2016-05-16 07:55] VITALS: BP 116/67
--- NOTE | 2016-05-16 07:57 | Discharge Summary ---
Date of Encounter: 05/16/16 Time of Encounter: 07:55 - Discharge Diagnosis (1) Partial small bowel obstruction Priority: Primary Status: Acute (2) Nausea & vomiting Priority: Primary Status: Acute Qualifiers: Vomiting type: unspecified Vomiting Intractability: unspecified Qualified Code(s): R11.2 - Nausea with vomiting, unspecified - Discharge Medications Prescriptions: Ondansetron [Zofran] 4 mg PO Q8HR #30 tablet HYDROcodone/Acet 5/325 mg [[place] 5-325 mg] 1 tab PO Q6H PRN #20 tab PRN Reason: Pain Home Medications: Cholecalciferol (Vitamin D3) [Vitamin D] 1,000 unit PO DAILY 10/17/14 [History] Esomeprazole Magnesium [Nexium] 40 mg PO DAILY 10/17/14 [History] Ferrous Sulfate 325 mg PO DAILY 10/17/14 [History] Levothyroxine Sodium [Synthroid] 88 mcg PO DAILY 10/17/14 [History] Meclizine HCl [Antivert] 12.5 mg PO DAILY PRN 10/17/14 [History] Multivit-Min/FA/Lycopen/Lutein [Centrum Silver Tablet] 1 tab PO DAILY 10/17/14 [ History] Vitamin E 400 unit PO BID 10/17/14 [History] Escitalopram [Lexapro] 20 mg PO DAILY 07/10/15 [History] BuPROPion SR (12 HR) [Wellbutrin SR] 100 mg PO DAILY 01/07/16 [History] Potassium Citrate [Urocit-K] 10 meq PO BID 05/01/16 [History] Ascorbic Acid [Vitamin C] 500 mg PO DAILY 05/05/16 [History] Cyanocobalamin (Vitamin B-12) [Vitamin B-12] 1,000 mcg SL DAILY 05/05/16 [ History] Folic Acid 1 mg PO DAILY 05/05/16 [History] Gluc HCl/Csa/Collagen/Hyalur A [Glucosamine Chondroitin Cap] 1 each PO BID 05/05 [History] Hydrochlorothiazide 25 mg PO DAILY 05/05/16 [History] Polyethylene Glycol 3350 [MiraLAX bowel prep] 17 gm PO BID 05/09/16 [History] Psyllium Husk [Fiber] 0.52 gm PO DAILY 05/09/16 [History] Zolpidem [Ambien] 5 mg PO HS 05/09/16 [History] HYDROcodone/Acet 5/325 mg [[place] 5-325 mg] 1 tab PO Q6H PRN #20 tab 05/16/16 [Rx ] Ondansetron [Zofran] 4 mg PO Q8HR #30 tablet 05/16/16 [Rx] Allergies/Adverse Reactions: Allergies Iodinated Contrast Media - Oral and Allergy (Verified 05/09/16 11:16) Hives Date of admission: 05/09/16 10:30 Primary care physician: Levi Wooten MD Consults: 05/14/16 10:36 Consult to Physical Therapy [CONS] Routine Comment: Evaluate, develop and implement POC 05/14/16 10:38 Consult to Occupational Therapy [CONS] Routine Comment: Evaluate, develop and implement POC Discharging clinician: Alex Holm Anticipated date of discharge: 05/16/16 - Patient Status Disposition: Home, Self-Care Condition: Fair Functional capacity at discharge: independent ambulation Overall status at discharge: patient is back to baseline - Discharge Instructions Follow Up With: Louise Molina [Other] - 05/21/16 11:15 am ([facility]. [facility] Appointment is at 11:15, but please arrive at 11:00. Thank you) Levi Wooten MD [Primary Care Provider] - 05/19/16 1:00 pm - Diet and Activity Activity: resume usual activities as tolerated Diet: advance to your usual diet Interval History: Mrs. Mcintosh is a very pleasant 65 year old female who is well known to the surgery practice. She has a past medical history significant for breast cancer, fibromyalgia, anxiety, GERD, osteoporosis, diverticulosis, malrotation of the intestine. Her radiologic imaging shows evidence of SB dilatation and partial SBO. Patient is admitted for further management, surgery was consulted. She was started on IV antibiotics and conservative management. No surgical intervention was required, she was kept nothing by mouth and was treated conservatively with IV fluids, antiemetics and analgesics. NG tube was placed to drain GI contents, was eventually taken out once she started having bowel sounds in the distention was better. Diet was gradually started and advanced as tolerated, to the patient is doing much better, tolerating soft diet. Denies any abdominal pain, nausea or vomiting. Patient is being discharged in stable condition. Hospital course: Ms. Mcintosh is a 65 year old female Time spent discussing smoking cessation with patient: more than 10 minutes - Time Spent with Patient Total time spent providing and/or coordinating discharge services: Greater than 30 minutes - Constitutional Vitals: Temp Pulse Resp BP Pulse Ox 98.1 F 64 17 116/67 97 05/16/16 07:51 05/16/16 07:51 05/16/16 07:51 05/16/16 07:51 05/16/16 07:51 General appearance: Present: A&O X 3, pleasant, no acute distress, answers questions appropriately Exam: - Eyes normal ocular movement - ENT normal mucosa, atraumatic, normocephalic - Neck trachea midline - Respiratory normal respiratory effort, clear to auscultation - Cardiovascular Cardiovascular exam: Present: RRR, 15, 16 - Abdomen Abdomen general surgery: Present: bowel sounds present, soft,non tender. - Integumentary Integumentary general surgery: Present: warm and dry - Neurologic Present: CN 2-12 grossly intact - Psychiatric Psychiatric general surgery: Present: appropriate, oriented to person, oriented to place, oriented to time, speech is normal, memory intact
[2016-05-16] MEDS: Pantoprazole 40 MG VIAL IVP SCH (08:40)
[2016-05-16] MEDS: BuPROPion SR (12 HR) 100 MG TABLET PO SCH (08:40)
== END 2016-05-16 09:58 | disposition home or self-care (01) | DRG 390 ==
LOC: 3ANU 07:49 → EMEROO 07:49 → 3ANU 11:26
PROVIDERS: ADMIT Internal Medicine; ATTEND Internal Medicine Endocrinology, Diabetes & Metabolism

== ENCOUNTER 2017-08-10 15:50 | Inpatient (IN) ==
[2017-08-10 17:21] LABS: Basophils % 0.5 %; Eosinophils # 0.2 K/mcL (0.0-0.6); Eosinophils % 3.8 %; Hematocrit 37.1 % (35.3-44.9); Hemoglobin 12.4 g/dL (11.5-15.4); Immature Granulocytes % 0.4 % (0-4); Lymphocytes # 1.4 K/mcL (0.6-4.6); Lymphocytes % 25.5 %; Mean Corpuscular HGB Conc 33.4 g/dL (31.6-35.5); Mean Corpuscular Hemoglobin 32.8 pg (28.0-33.3); Mean Corpuscular Volume 98.1 fL (83.0-100.0); Mean Platelet Volume 10.3 fL (9.4-12.4); Monocytes # 0.5 K/mcL (0.0-1.3); Neutrophils # 3.3 K/mcL (1.6-8.9); Platelet Count 232 K/mcL (140-400); Red Blood Count 3.78 M/mcL (3.82-4.97); Red Cell Distribution Width 12.7 % (11.5-14.5); Segmented Neutrophils % 60.8 %
[2017-08-10 17:35] LABS: BUN/Creatinine Ratio 25 (6-26); Blood Urea Nitrogen 19 mg/dL (8-23); Calcium 9.7 mg/dL (8.6-10.3); Carbon Dioxide 27 mEq/L (23-29); Chloride 108 mEq/L (98-107); Glucose 84 mg/dL (70-105); Osmolality,Calculated 295 (280-300); Potassium 3.3 mEq/L (3.5-5.1); Sodium 142 mEq/L (136-145); eGFR For African Americans > 60 (> 60); eGFR For Non-African Americans > 60 (> 60)
--- NOTE | 2017-08-10 18:07 | Emergency Department Note ---
Disposition Clinical Impression: Abdominal pain Qualifiers: Abdominal location: left lower quadrant Qualified Code(s): R10.32 - Left lower quadrant pain Nausea and vomiting Qualifiers: Vomiting type: unspecified Vomiting Intractability: unspecified Qualified Code( s): R11.2 - Nausea with vomiting, unspecified Disposition: Still a Patient Condition: Good Referrals: Levi Wooten MD [Primary Care Provider] - Forms: ED Satisfaction Letter Time of Disposition: 19:51 Nausea/Vomiting/Diarrhea HPI - General Chief complaint: ED Nausea/Vomiting/Diarrhea Stated complaint: vomiting Time Seen by Provider: 08/10/17 17:46 Source: patient Mode of arrival: ambulatory Limitations: no limitations Nursing Notes Reviewed: Yes Vital Signs Reviewed: Yes - History of Present Illness HPI Narrative: 65-year-old female history of small bowel obstructions, hysterectomy, appendectomy, who presents with lower quadrant pain nausea vomiting for the last 1 week,'s was follow-up with gastroenterology and general surgery but she can the ER because worsening nausea vomiting stopped able to keep things down. She is having constipation cadrozo bowel movement yesterday that she describes as hard and firm. She denies hematochezia or melena. Patient denies any chest pain or shortness of breath. She states her emesis is been dark in color and symptoms brown. Patient reports that previously she had a small bowel obstruction about a year ago and required NG tube for decompression but did not have surgery. She also states interestingly that she had a malrotation of her intestines and her appendix was on the left side. She follows with Dr. Mead for general surgery. Pt Subjective Complaint: nausea, vomiting Onset (ago): week(s) (1) Associated Abdominal Pain: Yes If pain, Location of pain: LUQ, LLQ Severity: moderate Severity scale (1-10): 6 Improves with: bowel movement Worsens with: eating - Related Data Home Medications Medication Instructions Recorded Confirmed Cholecalciferol (Vitamin D3) 1,000 unit PO DAILY 10/17/14 08/06/17 [Vitamin D] Esomeprazole Magnesium [Nexium] 40 mg PO DAILY 10/17/14 08/06/17 Levothyroxine Sodium [Synthroid] 88 mcg PO DAILY 10/17/14 08/06/17 Meclizine HCl [Antivert] 12.5 mg PO DAILY PRN 10/17/14 08/06/17 Multivit-Min/FA/Lycopen/Lutein 1 tab PO DAILY 10/17/14 08/06/17 [Centrum Silver Tablet] Escitalopram [Lexapro] 20 mg PO DAILY 07/10/15 08/06/17 BuPROPion SR (12 HR) [Wellbutrin 100 mg PO DAILY 01/07/16 08/06/17 SR] Potassium Citrate [Urocit-K] 10 meq PO BID 05/01/16 08/06/17 Gluc HCl/Csa/Collagen/Hyalur A 1 each PO BID 05/05/16 08/06/17 [Glucosamine Chondroitin Cap] hydroCHLOROthiazide 25 mg PO DAILY 05/05/16 08/06/17 [Hydrochlorothiazide] Zolpidem [Ambien] 5 mg PO HS 05/09/16 08/06/17 Nortriptyline HCl 10 mg PO HS 03/26/17 08/06/17 Previous Rx's Medication Instructions Recorded Diclofenac Sodium [Voltaren] 50 mg PO BID #30 tablet. 03/26/17 Tizanidine HCl 4 mg PO TID #15 tablet 03/26/17 Cholestyramine 4 gm PO BID #60 powd.pack 08/06/17 Docusate Sodium [Colace] 1 cap PO BID #60 capsule 08/06/17 Allergies Allergy/AdvReac Type Severity Reaction Status Date / Time Iodinated Contrast- Oral and AdvReac Hives Verified 08/10/17 19:19 IV Dye [Iodinated Contrast Media - Oral and] All systems ED: reviewed and negative except as stated. Review of Systems: As Per HPI Constitutional: Denies: fever, chills Eyes: Denies: eye pain ENT ED: Denies: ear pain Cardiovascular: Denies: chest pain Respiratory: Denies: cough, dyspnea Gastrointestinal: Reports: as per HPI, abdominal pain, nausea, vomiting. Denies : hematemesis Genitourinary: Denies: urgency, dysuria Musculoskeletal: Denies: back pain Integumentary: Denies: rash Neurological: Denies: headache Psychiatric: Denies: anxiety Endocrine: Denies: fatigue Past Medical History - Past Medical History Attestation: Yes The following information was validated with the patient. Source: patient Medical history: Reports: non-contributory Surgical history: Reports: appendectomy, breast surgery, herniorrhaphy, hysterectomy, other Psychiatric history: Reports: anxiety, depression - Social History Smoking Status: Never smoker Smokeless Tobacco Status: No Alcohol use: Reports: none Drug use: Reports: none Physical Exam Constitutional: NAD, appears somewhat uncomfortable. Eyes: PERRLA, sclera anicteric ENT & Mouth: MM dry Neck: normal inspection, neck is supple Resp: CTA bilaterally, no resp distress CV: RRR, no m/g/r GI: Midline incision consistent with previous colectomy and hysterectomy, the patient has hypoactive bowel sounds is soft with distended with no peritoneal signs or guarding. Neuro: A&O3, CNII-XII grossly intact, POTTER Skin: on limited exam, skin intact with no rashes or lesions - General Limitations: no limitations General appearance: alert Course Course Narrative: Patient's a 67-year-old female has a history of small bowel obstructions her abdomen is softly distended at this time with hypoactive bowel sounds [place] cardozo is on the differential CT scan of abdomen and pelvis is ordered CBC BMP troponin hepatic panel and lipase as well as a liter fluid and some Zofran have been ordered for the patient reassess after CT imaging plan is for imaging with oral contrast patient does not have a dye allergy oral contrast will give Benadryl just a small dose prior to treatment Vital Signs Temperature 98.1 F 08/10/17 15:51 Pulse Rate 83 08/10/17 15:51 Respiratory Rate 14 08/10/17 15:51 Blood Pressure 145/76 08/10/17 15:51 O2 Sat by Pulse Oximetry 96 08/10/17 15:51 Temperature 98.1 F 08/10/17 18:11 Pulse Rate 85 08/10/17 18:16 Respiratory Rate 16 08/10/17 18:16 Blood Pressure 168/84 08/10/17 18:16 O2 Sat by Pulse Oximetry 99 08/10/17 18:16 Oxygen Delivery Oxygen Delivery Room Air Nausea/Vomiting/Diarrhea - Differential Diagnosis Likely: traveler's diarrhea, food poisoning, gastroenteritis, bowel obstruction - Medical Records Medical records reviewed: Yes I reviewed the patient's medical records. - Lab Data Lab results reviewed: Yes I reviewed the patient's lab results. Result diagrams: 08/10/17 16:54 08/10/17 16:54 Lab Results 08/10/17 08/10/17 Range/Units 16:54 16:54 WBC 5.5 (4.3-11.1) K/mcL RBC 3.78 L (3.82-4.97) M/mcL Hgb 12.4 (11.5-15.4) g/dL Hct 37.1 (35.3-44.9) % MCV 98.1 (83.0-100.0) fL MCH 32.8 (28.0-33.3) pg MCHC 33.4 (31.6-35.5) g/dL RDW 12.7 (11.5-14.5) % Plt Count 232 (140-400) K/mcL MPV 10.3 (9.4-12.4) fL Immature Gran % 0.4 (0-4) % Seg Neutrophils % 60.8 % Lymphocytes % 25.5 % Monocytes % 9.0 % Eosinophils % 3.8 % Basophils % 0.5 % Neutrophils # 3.3 (1.6-8.9) K/mcL Lymphocytes # 1.4 (0.6-4.6) K/mcL Monocytes # 0.5 (0.0-1.3) K/mcL Eosinophils # 0.2 (0.0-0.6) K/mcL Basophils # 0.0 (0.0-0.2) K/mcL Sodium 142 (136-145) mEq/L Potassium 3.3 L (3.5-5.1) mEq/L Chloride 108 H (98-107) mEq/L Carbon Dioxide 27 (23-29) mEq/L BUN 19 (8-23) mg/dL Creatinine 0.75 (0.60-1.20) mg/dL Est GFR ( Amer) > 60 (> 60) Est GFR (Non-Af Amer) > 60 (> 60) BUN/Creatinine Ratio 25 (6-26) Glucose 84 (70-105) mg/dL Calculated Osmolality 295 (280-300) Calcium 9.7 (8.6-10.3) mg/dL Total Bilirubin 0.3 (0.3-1.0) mg/dL Direct Bilirubin 0.1 (0.0-0.2) mg/dL Indirect Bilirubin 0.2 (0.0-1.2) mg/dL AST 16 (13-39) Units/L ALT 10 (7-52) Units/L Alkaline Phosphatase 124 H (34-104) Units/L Troponin I < 0.03 (< 0.04) ng/mL Serum Total Protein 6.7 (6.4-8.9) g/dL Albumin 4.3 (3.5-5.7) g/dL Globulin 2.4 (2.4-3.5) g/dL Albumin/Globulin Ratio 1.8 (1.1-2.2) Lipase 56 (11-82) Units/L - Radiology Data Radiology results reviewed: Yes I reviewed the patient's radiology results. - EKG Data EKG attestation: Yes I reviewed and interpreted this EKG. EKG shows normal: sinus rhythm Rate: normal (85 bpm [place] 143 QRS 105 QTc 416 left axis no acute is seen ischemic changes some mild ST segment depression in lateral leads V4 through V6 seen on previous EKG on February 2014) Interpretation: no acute changes - Core Measures AMI Core Measures Followed: No Measure Exclusions: not indicated Attestation Statement - Attestation Attestation: I, Neil Hernandez DO, examined this patient [id number] and my medical decision-making was reviewed with Dr. Adeel Vila, Resident Physician. I agree with the documented findings, disposition and treatment plan as described except to the extent set forth below. Please see my progress notes for details.
[2017-08-10] MEDS ORDERED: 0.9 % Sodium Chloride 1,000 ML IVC ONE (18:09)
[2017-08-10] MEDS ORDERED: methylPREDNISolone 125 MG/2 ML VIAL IVP ONE (18:25)
[2017-08-10 18:28] LABS: Alanine Aminotransferase 10 Units/L (7-52); Albumin 4.3 g/dL (3.5-5.7); Albumin/Globulin Ratio 1.8 (1.1-2.2); Alkaline Phosphatase 124 Units/L (34-104); Aspartate Amino Transferase 16 Units/L (13-39); Bilirubin,Direct 0.1 mg/dL (0.0-0.2); Bilirubin,Indirect 0.2 mg/dL (0.0-1.2); Bilirubin,Total 0.3 mg/dL (0.3-1.0); Globulin 2.4 g/dL (2.4-3.5); Lipase 56 Units/L (11-82); Total Protein 6.7 g/dL (6.4-8.9)
--- NOTE | 2017-08-10 18:52 | Emergency Department Note ---
Disposition Clinical Impression: Abdominal pain Qualifiers: Abdominal location: left lower quadrant Qualified Code(s): R10.32 - Left lower quadrant pain Nausea and vomiting Qualifiers: Vomiting type: unspecified Vomiting Intractability: unspecified Qualified Code( s): R11.2 - Nausea with vomiting, unspecified Disposition: Still a Patient Condition: Good Referrals: Levi Wooten MD [Primary Care Provider] - Forms: ED Satisfaction Letter Time of Disposition: 20:28 General Adult HPI - General Chief complaint: ED Nausea/Vomiting/Diarrhea Stated complaint: vomiting Time Seen by Provider: 08/10/17 17:46 Source: patient Limitations: no limitations - History of Present Illness Pain Scale: 0 - Related Data Home Medications Medication Instructions Recorded Confirmed Cholecalciferol (Vitamin D3) 1,000 unit PO DAILY 10/17/14 08/06/17 [Vitamin D] Esomeprazole Magnesium [Nexium] 40 mg PO DAILY 10/17/14 08/06/17 Levothyroxine Sodium [Synthroid] 88 mcg PO DAILY 10/17/14 08/06/17 Meclizine HCl [Antivert] 12.5 mg PO DAILY PRN 10/17/14 08/06/17 Multivit-Min/FA/Lycopen/Lutein 1 tab PO DAILY 10/17/14 08/06/17 [Centrum Silver Tablet] Escitalopram [Lexapro] 20 mg PO DAILY 07/10/15 08/06/17 BuPROPion SR (12 HR) [Wellbutrin 100 mg PO DAILY 01/07/16 08/06/17 SR] Potassium Citrate [Urocit-K] 10 meq PO BID 05/01/16 08/06/17 Gluc HCl/Csa/Collagen/Hyalur A 1 each PO BID 05/05/16 08/06/17 [Glucosamine Chondroitin Cap] hydroCHLOROthiazide 25 mg PO DAILY 05/05/16 08/06/17 [Hydrochlorothiazide] Zolpidem [Ambien] 5 mg PO HS 05/09/16 08/06/17 Nortriptyline HCl 10 mg PO HS 03/26/17 08/06/17 Previous Rx's Medication Instructions Recorded Diclofenac Sodium [Voltaren] 50 mg PO BID #30 tablet. 03/26/17 Tizanidine HCl 4 mg PO TID #15 tablet 03/26/17 Cholestyramine 4 gm PO BID #60 powd.pack 08/06/17 Docusate Sodium [Colace] 1 cap PO BID #60 capsule 08/06/17 Allergies Allergy/AdvReac Type Severity Reaction Status Date / Time Iodinated Contrast- Oral and AdvReac Hives Verified 08/10/17 19:19 IV Dye [Iodinated Contrast Media - Oral and] Past Medical History - Past Medical History Medical history: Reports: cancer, thyroid disease Surgical history: Reports: appendectomy, breast surgery, herniorrhaphy, hysterectomy, other Psychiatric history: Reports: anxiety, depression - Social History Smoking Status: Never smoker Smokeless Tobacco Status: No Alcohol use: Reports: none Drug use: Reports: none Physical Exam - General Limitations: no limitations General appearance: alert, in no apparent distress Course Vital Signs Temperature 98.1 F 08/10/17 15:51 Pulse Rate 83 08/10/17 15:51 Respiratory Rate 14 08/10/17 15:51 Blood Pressure 145/76 08/10/17 15:51 O2 Sat by Pulse Oximetry 96 08/10/17 15:51 Temperature 98.1 F 08/10/17 18:11 Pulse Rate 85 08/10/17 18:16 Respiratory Rate 16 08/10/17 18:16 Blood Pressure 168/84 08/10/17 18:16 O2 Sat by Pulse Oximetry 99 08/10/17 18:16 Oxygen Delivery Oxygen Delivery Room Air Medical Decision Making - Lab Data Result diagrams: 08/10/17 16:54 08/10/17 16:54 Lab Results 08/10/17 08/10/17 08/10/17 Range/Units 16:54 16:54 19:43 WBC 5.5 (4.3-11.1) K/mcL RBC 3.78 L (3.82-4.97) M/mcL Hgb 12.4 (11.5-15.4) g/dL Hct 37.1 (35.3-44.9) % MCV 98.1 (83.0-100.0) fL MCH 32.8 (28.0-33.3) pg MCHC 33.4 (31.6-35.5) g/dL RDW 12.7 (11.5-14.5) % Plt Count 232 (140-400) K/mcL MPV 10.3 (9.4-12.4) fL Immature Gran % 0.4 (0-4) % Seg Neutrophils % 60.8 % Lymphocytes % 25.5 % Monocytes % 9.0 % Eosinophils % 3.8 % Basophils % 0.5 % Neutrophils # 3.3 (1.6-8.9) K/mcL Lymphocytes # 1.4 (0.6-4.6) K/mcL Monocytes # 0.5 (0.0-1.3) K/mcL Eosinophils # 0.2 (0.0-0.6) K/mcL Basophils # 0.0 (0.0-0.2) K/mcL Sodium 142 (136-145) mEq/L Potassium 3.3 L (3.5-5.1) mEq/L Chloride 108 H (98-107) mEq/L Carbon Dioxide 27 (23-29) mEq/L BUN 19 (8-23) mg/dL Creatinine 0.75 (0.60-1.20) mg/dL Est GFR ( Amer) > 60 (> 60) Est GFR (Non-Af Amer) > 60 (> 60) BUN/Creatinine Ratio 25 (6-26) Glucose 84 (70-105) mg/dL Calculated Osmolality 295 (280-300) Calcium 9.7 (8.6-10.3) mg/dL Total Bilirubin 0.3 (0.3-1.0) mg/dL Direct Bilirubin 0.1 (0.0-0.2) mg/dL Indirect Bilirubin 0.2 (0.0-1.2) mg/dL AST 16 (13-39) Units/L ALT 10 (7-52) Units/L Alkaline Phosphatase 124 H (34-104) Units/L Troponin I < 0.03 (< 0.04) ng/mL Serum Total Protein 6.7 (6.4-8.9) g/dL Albumin 4.3 (3.5-5.7) g/dL Globulin 2.4 (2.4-3.5) g/dL Albumin/Globulin Ratio 1.8 (1.1-2.2) Lipase 56 (11-82) Units/L Urine Color Yellow (Yellow) Urine Clarity Cloudy A (Clear) Urine pH 6.5 (5.0-8.0) pH Units Ur Specific [place] 1.015 (1.010-1.025) Urine Protein Negative (Neg-Trace) mg/dL Urine Glucose (UA) Normal (Normal) mg/dL Urine Ketones Negative (Negative) mg/dL Urine Blood Trace H (Negative) Urine Nitrite Negative (Negative) Urine Bilirubin Negative (Negative) Urine Urobilinogen Normal (Normal) mg/dL Ur Leukocyte Esterase Moderate H (Negative) Urine Microscopic RBC 5-15 H (0-3) per hpf Urine Microscopic WBC 15-30 H (0-3) per hpf Ur Squamous Epith Cells Many H (None-Few) per lpf Urine Bacteria None Seen (None-Few) per hpf Hyaline Casts None Seen (None-Few) per lpf Ur Culture Indicated? NO. A (NO) Attestation Statement - Attestation Attestation: I, Neil Hernandez DO, examined this patient [id number] and my medical decision-making was reviewed with Dr. Adeel Vila, Resident Physician. I agree with the documented findings, disposition and treatment plan as described except to the extent set forth below. Please see my progress notes for details. 67-year-old female presents to emergency room for concern of emesis abdominal pain and decreased stooling. Patient has had history of obstructions multiple times the past. Her most recent obstruction was within the last several weeks. She denies any fevers or chills chest pain shortness of breath headache vision changes at this time. She has had persistent nausea and vomiting that is been getting worse over the last 3 days. She has not been able to tolerate anything by mouth and it immediately comes back up. Patient denies any trauma or injury. Denies any new medications or changes in medications. Patient otherwise is stable vital signs. Is atraumatic mucous membranes are moist oropharynx is patent take is midline. Lungs are clear to auscultation heart is regular abdomen is soft she does have some diffuse discomfort but no point tenderness guarding or rigidity. No peritoneal symptoms at this time. She has diminished bowel sounds on auscultation. Approximately 30 seconds or more for the patient to have gurgling in the abdomen. Patient has not had any colitis or bowel movement in over 4-5 days. She has had belching and emesis. Patient is concerning for obstruction based on the symptoms and history. Patient does have an allergy to contrast but is able to have a contrasted she gets premedicated. She will be given steroids and Benadryl. Have the oral contrast provided. Screening labs including CBC chemistry liver function testing lipase as well as urinalysis will be resulted. Disposition to be determined once before treatment course are completed. Fluids will be started as needed. See detailed documentation of physical exam, medical intervention, medical decision- making and disposition in the resident physician's note. No cocaine applied to the patient's treatment course at this time. 2024 Patient tolerated approximately two thirds of the oral contrast dose. Patient is waiting for that to transit the colon at this time. Patient will have CT imaging completed. Disposition will be determined once the full treatment course has been established. Patient will be signed out to the overnight physician Dr. cornelius for the completion of the course of care. Otherwise patient is clinically stable. Disposition determined once imaging modality is resulted.
[2017-08-10] MEDS ORDERED: Ondansetron 4 MG/2 ML VIAL IVP ONE (18:58)
[2017-08-10 19:15] LABS: Troponin I < 0.03 ng/mL (< 0.04)
[2017-08-10 19:50] LABS: Bilirubin,Urine Negative (Negative); Blood,Urine Trace (Negative); Clarity,Urine Cloudy (Clear); Color,Urine Yellow (Yellow); Glucose,Urine (UA) Normal (Normal); Ketones,Urine Negative (Negative); Leukocyte Esterase,Urine Moderate (Negative); Nitrite,Urine Negative (Negative); PH,Urine 6.5 pH Units (5.0-8.0); Protein,Urine Negative (Neg-Trace); Specific Gravity,Urine 1.015 (1.010-1.025); Urobilinogen,Urine Normal (Normal)
[2017-08-10 19:51] LABS: Bacteria,Urine None Seen per hpf (None-Few); Hyaline Casts,Urine None Seen per lpf (None-Few); Squamous Epithelial Cell,Urine Many per lpf (None-Few); WBC,Urine 15-30 per hpf (0-3)
[2017-08-10] MEDS ORDERED: *HR* Promethazine 25 MG/ML VIAL IVP ONE (19:59)
[2017-08-10] MEDS ORDERED: Potassium Chloride 20 MEQ, Lidocaine 1% 2 ML in D5% in Water 250 ML IVPB ONE (20:16)
[2017-08-10 20:33] LABS: Magnesium 2.2 mg/dL (1.6-2.6)
--- NOTE | 2017-08-10 20:35 | Emergency Department Note ---
Disposition Clinical Impression: Ureteral stone Abdominal pain Qualifiers: Abdominal location: left lower quadrant Qualified Code(s): R10.32 - Left lower quadrant pain Nausea and vomiting Qualifiers: Vomiting type: unspecified Vomiting Intractability: unspecified Qualified Code( s): R11.2 - Nausea with vomiting, unspecified Disposition: Admitted As Inpatient Condition: Fair Reasons to Return/Additional Instructions: Return for severe worsening symptoms including persistent nausea with vomiting, worsening abdominal pain, fever, difficulty with urination. Follow-up with your urologist. Give their office a call tomorrow morning for follow-up appointment. Prescriptions: Ondansetron ODT [Zofran ODT] 4 mg SL Q6HR PRN #15 tab.rapdis PRN Reason: Nausea Referrals: Levi Wooten MD [Primary Care Provider] - Vidal Red MD [Partnered Physician] - Forms: ED Satisfaction Letter, Work/School Release Time of Disposition: 00:02 General Adult HPI - General Chief complaint: ED Nausea/Vomiting/Diarrhea Stated complaint: vomiting Time Seen by Provider: 08/10/17 17:46 Source: patient Mode of arrival: ambulatory Limitations: no limitations Nursing Notes Reviewed: Yes Vital Signs Reviewed: Yes - History of Present Illness Pain Scale: 0 - Related Data Home Medications Medication Instructions Recorded Confirmed Cholecalciferol (Vitamin D3) 1,000 unit PO DAILY 10/17/14 08/06/17 [Vitamin D] Esomeprazole Magnesium [Nexium] 40 mg PO DAILY 10/17/14 08/06/17 Levothyroxine Sodium [Synthroid] 88 mcg PO DAILY 10/17/14 08/06/17 Meclizine HCl [Antivert] 12.5 mg PO DAILY PRN 10/17/14 08/06/17 Multivit-Min/FA/Lycopen/Lutein 1 tab PO DAILY 10/17/14 08/06/17 [Centrum Silver Tablet] Escitalopram [Lexapro] 20 mg PO DAILY 07/10/15 08/06/17 BuPROPion SR (12 HR) [Wellbutrin 100 mg PO DAILY 01/07/16 08/06/17 SR] Potassium Citrate [Urocit-K] 10 meq PO BID 05/01/16 08/06/17 Gluc HCl/Csa/Collagen/Hyalur A 1 each PO BID 05/05/16 08/06/17 [Glucosamine Chondroitin Cap] hydroCHLOROthiazide 25 mg PO DAILY 05/05/16 08/06/17 [Hydrochlorothiazide] Zolpidem [Ambien] 5 mg PO HS 05/09/16 08/06/17 Nortriptyline HCl 10 mg PO HS 03/26/17 08/06/17 Previous Rx's Medication Instructions Recorded Diclofenac Sodium [Voltaren] 50 mg PO BID #30 tablet. 03/26/17 Tizanidine HCl 4 mg PO TID #15 tablet 03/26/17 Cholestyramine 4 gm PO BID #60 powd.pack 08/06/17 Docusate Sodium [Colace] 1 cap PO BID #60 capsule 08/06/17 Ondansetron ODT [Zofran ODT] 4 mg SL Q6HR PRN #15 tab.rapdis 08/10/17 Allergies Allergy/AdvReac Type Severity Reaction Status Date / Time Iodinated Contrast- Oral and AdvReac Hives Verified 08/10/17 19:19 IV Dye [Iodinated Contrast Media - Oral and] Constitutional: Denies: fever, chills Eyes: Denies: eye pain ENT ED: Denies: ear pain Cardiovascular: Denies: chest pain Respiratory: Denies: cough, dyspnea Gastrointestinal: Reports: as per HPI, abdominal pain, nausea, vomiting. Denies : hematemesis Genitourinary: Denies: urgency, dysuria Musculoskeletal: Denies: back pain Integumentary: Denies: rash Neurological: Denies: headache Psychiatric: Denies: anxiety Endocrine: Denies: fatigue Past Medical History - Past Medical History Medical history: Reports: cancer, thyroid disease Surgical history: Reports: appendectomy, breast surgery, herniorrhaphy, hysterectomy, other Psychiatric history: Reports: anxiety, depression - Social History Smoking Status: Never smoker Smokeless Tobacco Status: No Alcohol use: Reports: none Drug use: Reports: none Physical Exam - General Limitations: no limitations General appearance: alert, in no apparent distress Course Course Narrative: Assumed care from Dr. Vila. Patient with multiple days of nausea and vomiting. Abdominal pain with history of small bowel obstructions. Awaiting CT scan. Labwork unremarkable. - Reevaluation(s) Reevaluation #1: CT scan shows signs of a left distal ureteral stone measured at 6 mm x 4 mm. Patient has continued intractable nausea with vomiting. We will admit. I discussed with Dr. Red who has been consulted. I discussed with the hospitalist who has accepted patient for admission. Time: 00:01 Vital Signs Temperature 98.1 F 08/10/17 15:51 Pulse Rate 83 08/10/17 15:51 Respiratory Rate 14 08/10/17 15:51 Blood Pressure 145/76 08/10/17 15:51 O2 Sat by Pulse Oximetry 96 08/10/17 15:51 Temperature 98.1 F 08/10/17 18:11 Pulse Rate 79 08/10/17 20:34 Respiratory Rate 16 08/10/17 20:34 Blood Pressure 133/67 08/10/17 20:34 O2 Sat by Pulse Oximetry 96 08/10/17 20:34 Oxygen Delivery Oxygen Delivery Room Air Medical Decision Making - Medical Records Medical records reviewed: Yes I reviewed the patient's medical records. - Lab Data Lab results reviewed: Yes I reviewed the patient's lab results. Result diagrams: 08/10/17 16:54 08/10/17 16:54 Lab Results 08/10/17 08/10/17 08/10/17 Range/Units 16:54 16:54 19:43 WBC 5.5 (4.3-11.1) K/mcL RBC 3.78 L (3.82-4.97) M/mcL Hgb 12.4 (11.5-15.4) g/dL Hct 37.1 (35.3-44.9) % MCV 98.1 (83.0-100.0) fL MCH 32.8 (28.0-33.3) pg MCHC 33.4 (31.6-35.5) g/dL RDW 12.7 (11.5-14.5) % Plt Count 232 (140-400) K/mcL MPV 10.3 (9.4-12.4) fL Immature Gran % 0.4 (0-4) % Seg Neutrophils % 60.8 % Lymphocytes % 25.5 % Monocytes % 9.0 % Eosinophils % 3.8 % Basophils % 0.5 % Neutrophils # 3.3 (1.6-8.9) K/mcL Lymphocytes # 1.4 (0.6-4.6) K/mcL Monocytes # 0.5 (0.0-1.3) K/mcL Eosinophils # 0.2 (0.0-0.6) K/mcL Basophils # 0.0 (0.0-0.2) K/mcL Sodium 142 (136-145) mEq/L Potassium 3.3 L (3.5-5.1) mEq/L Chloride 108 H (98-107) mEq/L Carbon Dioxide 27 (23-29) mEq/L BUN 19 (8-23) mg/dL Creatinine 0.75 (0.60-1.20) mg/dL Est GFR ( Amer) > 60 (> 60) Est GFR (Non-Af Amer) > 60 (> 60) BUN/Creatinine Ratio 25 (6-26) Glucose 84 (70-105) mg/dL Calculated Osmolality 295 (280-300) Calcium 9.7 (8.6-10.3) mg/dL Magnesium 2.2 (1.6-2.6) mg/dL Total Bilirubin 0.3 (0.3-1.0) mg/dL Direct Bilirubin 0.1 (0.0-0.2) mg/dL Indirect Bilirubin 0.2 (0.0-1.2) mg/dL AST 16 (13-39) Units/L ALT 10 (7-52) Units/L Alkaline Phosphatase 124 H (34-104) Units/L Troponin I < 0.03 (< 0.04) ng/mL Serum Total Protein 6.7 (6.4-8.9) g/dL Albumin 4.3 (3.5-5.7) g/dL Globulin 2.4 (2.4-3.5) g/dL Albumin/Globulin Ratio 1.8 (1.1-2.2) Lipase 56 (11-82) Units/L Urine Color Yellow (Yellow) Urine Clarity Cloudy A (Clear) Urine pH 6.5 (5.0-8.0) pH Units Ur Specific [place] 1.015 (1.010-1.025) Urine Protein Negative (Neg-Trace) mg/dL Urine Glucose (UA) Normal (Normal) mg/dL Urine Ketones Negative (Negative) mg/dL Urine Blood Trace H (Negative) Urine Nitrite Negative (Negative) Urine Bilirubin Negative (Negative) Urine Urobilinogen Normal (Normal) mg/dL Ur Leukocyte Esterase Moderate H (Negative) Urine Microscopic RBC 5-15 H (0-3) per hpf Urine Microscopic WBC 15-30 H (0-3) per hpf Ur Squamous Epith Cells Many H (None-Few) per lpf Urine Bacteria None Seen (None-Few) per hpf Hyaline Casts None Seen (None-Few) per lpf Ur Culture Indicated? NO. A (NO) - Radiology Data Radiology results reviewed: Yes I reviewed the patient's radiology results. Abdomen/Pelvis CT 08/10/17 21:00 IMPRESSION: 1. No bowel obstruction. 2. 6 x 4 mm stone in the distal left ureter with mild hydroureteronephrosis. 3. Bilateral nonobstructing intrarenal calculi. 4. 1.3 cm mildly hyperdense exophytic lesion arising from the left kidney unchanged likely representing a hemorrhagic cyst. D/ / Luis Segovia MD / Luis Segovia MD Interpreting Provider: Luis Segovia MD
[2017-08-10] MEDS ORDERED: Haloperidol Lactate 5 MG/ML VIAL IVP ONE (22:43)
[2017-08-11] MEDS ORDERED: Naloxone 0.4 MG/ML INJ IVP PRN ×2 (00:16→17:41)
[2017-08-11] MEDS ORDERED: Acetaminophen 325 MG TABLET PO PRN ×2 (00:16→17:41)
[2017-08-11] MEDS ORDERED: *HR* HYDROcodone/Acet 5/325 mg TABLET PO PRN ×2 (00:16→17:41)
[2017-08-11] MEDS ORDERED: Ondansetron 4 MG/2 ML VIAL IVP PRN (00:18)
--- NOTE | 2017-08-11 00:23 | Internal Med History&Physical ---
Date of Encounter: 08/11/17 Time of Encounter: 00:10 Internal Medicine - H&P: HPI Chief complaint: Nausea and vomiting Admitted From: Emergency Dept Plans for Post Hospital Care: Home History of present illness: Ms. Mcintosh is a 67 year old female patient with history of hypertension, depression who presented to the ER with complaints of nausea and vomiting. She has had kidney stones in the past and sees Dr. Red with urology. She has been having symptoms of nausea and vomiting for about 6 days now. She is also been having intermittent left flank and groin pain. She denies any fevers but has been having chills. No hematemesis. No dysuria or hematuria. Her nausea improved after she received Zofran in the ER. Past Med Surg Social Fam HX - Past Medical History Attestation: Yes The following information was validated with the patient. Source: patient Medical history: cancer, thyroid disease Additional medical history: breast cancer Psychiatric history: anxiety, depression - Past Surgical History Surgical History: appendectomy, breast surgery, herniorrhaphy, hysterectomy, other Additional surgical history: kidney stones, tubal ligation, bowel surgery, left mastectomy, hernia repair - Social History Smoking Status: Never smoker Smokeless Tobacco Status: No Alcohol use: none Drug use: none - Family History Mother Living Status: Hx Family Cancer: Yes (Ovarian) Hx Family Endocrine Disorder: Yes (DM) Father Living Status: Hx Family Cancer: Yes (Prostate and colon) Internal Medicine - H&P: Meds Cholecalciferol (Vitamin D3) [Vitamin D] 1,000 unit PO DAILY 10/17/14 [History] Esomeprazole Magnesium [Nexium] 40 mg PO DAILY 10/17/14 [History] Levothyroxine Sodium [Synthroid] 88 mcg PO DAILY 10/17/14 [History] Meclizine HCl [Antivert] 12.5 mg PO DAILY PRN 10/17/14 [History] Multivit-Min/FA/Lycopen/Lutein [Centrum Silver Tablet] 1 tab PO DAILY 10/17/14 [ History] Escitalopram [Lexapro] 20 mg PO DAILY 07/10/15 [History] BuPROPion SR (12 HR) [Wellbutrin SR] 100 mg PO DAILY 01/07/16 [History] Potassium Citrate [Urocit-K] 10 meq PO BID 05/01/16 [History] Gluc HCl/Csa/Collagen/Hyalur A [Glucosamine Chondroitin Cap] 1 each PO BID 05/05 [History] hydroCHLOROthiazide [Hydrochlorothiazide] 25 mg PO DAILY 05/05/16 [History] Zolpidem [Ambien] 5 mg PO HS 05/09/16 [History] Diclofenac Sodium [Voltaren] 50 mg PO BID #30 tablet. 03/26/17 [Rx] Nortriptyline HCl 10 mg PO HS 03/26/17 [History] Tizanidine HCl 4 mg PO TID #15 tablet 03/26/17 [Rx] Cholestyramine 4 gm PO BID #60 powd.pack 08/06/17 [Rx] Docusate Sodium [Colace] 1 cap PO BID #60 capsule 08/06/17 [Rx] Ondansetron ODT [Zofran ODT] 4 mg SL Q6HR PRN #15 tab.rapdis 08/10/17 [Rx] 3 Allergy/AdvReac Type Severity Reaction Status Date / Time Iodinated Contrast- Oral and AdvReac Hives Verified 08/10/17 19:19 IV Dye [Iodinated Contrast Media - Oral and] All Systems PM: A 10-system review of systems was performed and is negative for pertinent findings except as documented above in the HPI. - Constitutional Constitutional: chills, no fever(s), no night sweats - EENT Eyes: no change in vision, no discharge, no pain, no photophobia Ears: no ear discharge, no ear pain, no tinnitus Nose, mouth and throat: no dysphagia, no nasal discharge, no neck pain, no sore throat - Cardiovascular Cardiovascular ROS IM: no chest pain, no diaphoresis, no dyspnea, no lightheadedness, no palpitations, no syncope - Respiratory Respiratory: no cough, no dyspnea, no wheezing, no excessive phlegm production - Gastrointestinal Gastrointestinal: nausea, vomiting, no abdominal pain, no diarrhea, no hematemesis, no hematochezia, no melena - Genitourinary Genitourinary: flank pain, no change in urinary stream, no dysuria, no hematuria - Musculoskeletal Musculoskeletal ROS IM: no numbness, no tingling - Integumentary Integumentary IM: no rash, no unusual bruising - Neurological Neurological ROS: no confusion, no convulsions, no focal weakness, no numbness, no tingling, no tremor(s) - Hematologic/Lymphatic Hematologic/Lymphatic: no easy bruising - Constitutional Vitals: Temp Pulse Resp BP Pulse Ox 98.1 F 79 16 132/66 96 08/10/17 18:11 08/10/17 20:34 08/11/17 00:12 08/11/17 00:12 08/10/17 20:34 General appearance: Present: cooperative, mild distress, A&O X 3, answers questions appropriately - Neck Neck exam general surgery: Present: supple, trachea midline. Absent: lymphadenopathy - Respiratory Respiratory exam: Present: CTAB. Absent: accessory muscle use, rales, rhonchi, wheezes - Cardiovascular Cardiovascular exam: Present: RRR, +S1, +S2. Absent: diastolic murmur, gallop, rubs, systolic murmur - GI/Abdominal GI/Abdominal exam: Present: normal bowel sounds, soft, tenderness (Left lower quadrant tenderness to deep palpation), no peritoneal signs. Absent: distended - Extremities Exam Extremities exam: Present: warm, radial pulses palpable and symmetrical. Absent : calf tenderness, cyanotic, pedal edema - Back Exam Back exam: Absent: CVA tenderness (L), CVA tenderness (R) - Neurological Exam Neurological exam: Present: alert, CN II-XII intact, oriented X3, no focal deficits, strengths equal and symetr throughout. Absent: facial droop, speech deficit Internal Med - H&P Results - Labs CBC & Chem 7: 08/10/17 16:54 08/10/17 16:54 - Impressions Impressions Abdomen/Pelvis CT 08/10/17 21:00 IMPRESSION: 1. No bowel obstruction. 2. 6 x 4 mm stone in the distal left ureter with mild hydroureteronephrosis. 3. Bilateral nonobstructing intrarenal calculi. 4. 1.3 cm mildly hyperdense exophytic lesion arising from the left kidney unchanged likely representing a hemorrhagic cyst. D/ / Luis Segovia MD / Luis Segovia MD Interpreting Provider: Luis Segovia MD - Assessment and plan (1) Ureteral stone Current Visit: Yes Status: Acute Assessment and plan: Distal ureteral stone with mild hydroureteronephrosis. 6 x 4 mm in size. Nephrology has been consulted. We will follow recommendations. IV fluids. Will place patient on Rocephin empirically. (2) Nausea & vomiting Current Visit: Yes Status: Acute Assessment and plan: Patient with intractable nausea and vomiting related to nephrolithiasis and ureteral stone. We will treat symptomatically. Keep patient nothing by mouth for now. IV fluids. Antiemetics Qualifiers: Vomiting type: cyclical vomiting Vomiting Intractability: intractable Qualified Code(s): G43.A1 - Cyclical vomiting, intractable (3) Hydroureteronephrosis Current Visit: Yes Status: Acute Assessment and plan: Due to left ureteral stone. Renal function is normal at this time. (4) Essential hypertension Current Visit: Yes Status: Chronic Assessment and plan: Monitor blood pressure. Continue home medications. - Time Spent With Patient Total time spent is greater than 50% in coordination of care (as documented) at patient's floor/unit and/or counseling patient:
[2017-08-11] MEDS ORDERED: cefTRIAXone 1,000 MG in Water for inj. (sterile) 20 ML 10 ML IVPB SCH (01:00)
[2017-08-11] MEDS: Ringers Solution, Lactated 1,000 ML IVC SCH ×3 (01:59→19:44)
[2017-08-11 06:31] LABS: Basophils % 0.5 %; Eosinophils # 0.3 K/mcL (0.0-0.6); Eosinophils % 4.8 %; Hematocrit 32.6 % (35.3-44.9); Hemoglobin 10.9 g/dL (11.5-15.4); Immature Granulocytes % 0.3 % (0-4); Lymphocytes # 1.5 K/mcL (0.6-4.6); Lymphocytes % 25.8 %; Mean Corpuscular HGB Conc 33.4 g/dL (31.6-35.5); Mean Corpuscular Hemoglobin 32.8 pg (28.0-33.3); Mean Corpuscular Volume 98.2 fL (83.0-100.0); Mean Platelet Volume 10.4 fL (9.4-12.4); Monocytes # 0.5 K/mcL (0.0-1.3); Monocytes % 8.3 %; Neutrophils # 3.5 K/mcL (1.6-8.9); Nucleated Red Blood Cells 0.7 /100 WBC (0); Platelet Count 195 K/mcL (140-400); Red Blood Count 3.32 M/mcL (3.82-4.97); Red Cell Distribution Width 12.8 % (11.5-14.5); Segmented Neutrophils % 60.3 %
--- NOTE | 2017-08-11 06:34 | Emergency Department Note ---
START Narrative - START START: I examined this patient and my medical decision-making was reviewed with the Resident Physician. I agree with the documented findings, disposition and treatment plan as described except to the extent set forth below. Intractable nausea and vomiting. Patient will be admitted for further management
[2017-08-11 06:35] LABS: Prothrombin Time 11.1 Seconds (9.4-12.1)
[2017-08-11 06:49] LABS: BUN/Creatinine Ratio 20 (6-26); Blood Urea Nitrogen 13 mg/dL (8-23); Calcium 8.6 mg/dL (8.6-10.3); Carbon Dioxide 25 mEq/L (23-29); Chloride 112 mEq/L (98-107); Glucose 86 mg/dL (70-105); Osmolality,Calculated 295 (280-300); Potassium 3.6 mEq/L (3.5-5.1); Sodium 143 mEq/L (136-145); eGFR For African Americans > 60 (> 60); eGFR For Non-African Americans > 60 (> 60)
--- NOTE | 2017-08-11 10:12 | Urology - Consult Note ---
Date of Encounter: 08/11/17 Time of Encounter: 10:10 - Assessment and Plan (1) Nausea & vomiting Current Visit: Yes Status: Acute Assessment and plan: Patient does have history of nausea vomiting. We will plan on removing stone today. If this fails to improve her nausea vomiting may need to consider surgical consultation Qualifiers: Vomiting type: cyclical vomiting Vomiting Intractability: intractable Qualified Code(s): G43.A1 - Cyclical vomiting, intractable (2) Ureteral stone Current Visit: Yes Status: Acute Assessment and plan: Patient is scheduled for left ureteroscopic stone extraction in the operating room today. Urology CN:HPI Consult date: 08/11/17 Reason for consult Urology: Other (left ureteral stone) Requesting physician: Nichole Phipps History of present illness: Omer is a 67-year-old female who presented to the emergency Department yesterday secondary to vague abdominal pain with three-day history of nausea and vomiting. Patient was found on CT scan to have a distal 6 mm stone. She is brought in the hospital for observation. Patient's pain is well-controlled. Labs are stable. Past Med Surg Social Fam HX - Past Medical History Medical history: cancer, thyroid disease Additional medical history: breast cancer Psychiatric history: anxiety, depression - Past Surgical History Surgical History: appendectomy, breast surgery, herniorrhaphy, hysterectomy, other Additional surgical history: kidney stones, tubal ligation, bowel surgery, left mastectomy, hernia repair - Social History Smoking Status: Never smoker Smokeless Tobacco Status: No Alcohol use: none Drug use: none - Family History Mother Living Status: Hx Family Cancer: Yes (Ovarian) Hx Family Endocrine Disorder: Yes (DM) Father Living Status: Hx Family Cancer: Yes (Prostate and colon) Medications and Allergies Esomeprazole Magnesium [Nexium] 40 mg PO DAILY 10/17/14 [History] Multivit-Min/FA/Lycopen/Lutein [Centrum Silver Tablet] 1 tab PO DAILY 10/17/14 [ History] Escitalopram [Lexapro] 20 mg PO DAILY 07/10/15 [History] BuPROPion SR (12 HR) [Wellbutrin SR] 100 mg PO BID 01/07/16 [History] Gluc HCl/Csa/Collagen/Hyalur A [Glucosamine Chondroitin Cap] 1 each PO BID 05/05 [History] hydroCHLOROthiazide [Hydrochlorothiazide] 25 mg PO DAILY 05/05/16 [History] Zolpidem [Ambien] 5 mg PO HS 05/09/16 [History] Nortriptyline HCl 10 mg PO HS 03/26/17 [History] Cholestyramine 4 gm PO BID #60 powd.pack 08/06/17 [Rx] Docusate Sodium [Colace] 1 cap PO BID #60 capsule 08/06/17 [Rx] Ondansetron ODT [Zofran ODT] 4 mg SL Q6HR PRN #15 tab.rapdis 08/10/17 [Rx] Cholecalciferol (D-3) [Vitamin D] 1,000 unit PO DAILY 08/11/17 [History] Levothyroxine Sodium [Levoxyl] 88 mcg PO DAILY 08/11/17 [History] 3 Allergy/AdvReac Type Severity Reaction Status Date / Time Iodinated Contrast- Oral and AdvReac Hives Verified 08/10/17 19:19 IV Dye [Iodinated Contrast Media - Oral and] Review of Systems - Constitutional no chills, no fever(s) - EENT Nose, mouth and throat: no dizziness - Cardiovascular no chest pain - Respiratory no cough - Gastrointestinal abdominal pain Exam Initial Vital Signs Temp Pulse Resp BP Pulse Ox 98.1 F 83 14 145/76 96 08/10/17 15:51 08/10/17 15:51 08/10/17 15:51 08/10/17 15:51 08/10/17 15:51 - General physical appearance Present: well developed, well nourished - Eyes Present: PERRL - Neck Present: no masses - Respiratory Present: normal respiratory effort - Cardiovascular Cardiovascular exam IM: RRR - Abdomen Abdomen: Present: soft. Absent: tender, suprapubic tenderness Urology Results - Labs 08/11/17 05:16 08/11/17 05:16 Abnormal lab results RBC 3.32 M/mcL (3.82-4.97) L 08/11/17 05:16 Hgb 10.9 g/dL (11.5-15.4) L D 08/11/17 05:16 Hct 32.6 % (35.3-44.9) L 08/11/17 05:16 Nucleated RBCs/100 WBC 0.7 /100 WBC (0) H 08/11/17 05:16 Chloride 112 mEq/L (98-107) H 08/11/17 05:16 Alkaline Phosphatase 124 Units/L (34-104) H 08/10/17 16:54 Urine Clarity Cloudy (Clear) A 08/10/17 19:43 Urine Blood Trace (Negative) H 08/10/17 19:43 Ur Leukocyte Esterase Moderate (Negative) H 08/10/17 19:43 Urine Microscopic RBC 5-15 per hpf (0-3) H 08/10/17 19:43 Urine Microscopic WBC 15-30 per hpf (0-3) H 08/10/17 19:43 Ur Squamous Epith Cells Many per lpf (None-Few) H 08/10/17 19:43 Ur Culture Indicated? NO. (NO) A 08/10/17 19:43 Diabetes panel 08/11/17 Range/Units 05:16 Sodium 143 (136-145) mEq/L Potassium 3.6 (3.5-5.1) mEq/L Chloride 112 H (98-107) mEq/L Carbon Dioxide 25 (23-29) mEq/L BUN 13 (8-23) mg/dL Creatinine 0.65 (0.60-1.20) mg/dL Glucose 86 (70-105) mg/dL Calcium 8.6 (8.6-10.3) mg/dL Calcium panel 08/11/17 Range/Units 05:16 Calcium 8.6 (8.6-10.3) mg/dL Pituitary panel 08/11/17 Range/Units 05:16 Sodium 143 (136-145) mEq/L Potassium 3.6 (3.5-5.1) mEq/L Chloride 112 H (98-107) mEq/L Carbon Dioxide 25 (23-29) mEq/L BUN 13 (8-23) mg/dL Creatinine 0.65 (0.60-1.20) mg/dL Glucose 86 (70-105) mg/dL Calcium 8.6 (8.6-10.3) mg/dL Adrenal panel 08/11/17 Range/Units 05:16 Sodium 143 (136-145) mEq/L Potassium 3.6 (3.5-5.1) mEq/L Chloride 112 H (98-107) mEq/L Carbon Dioxide 25 (23-29) mEq/L BUN 13 (8-23) mg/dL Creatinine 0.65 (0.60-1.20) mg/dL Glucose 86 (70-105) mg/dL Calcium 8.6 (8.6-10.3) mg/dL All other labs normal. - Imaging CT scan - abdomen: image reviewed CT scan - pelvis: image reviewed Consult Discharge Plan - Plan Referrals: Levi Wooten MD [Primary Care Provider] -
[2017-08-11] MEDS ORDERED: *HR* Propofol 200 MG/20 ML VIAL IVP ONE (15:04)
[2017-08-11] MEDS ORDERED: *HR* FentaNYL (PF) 100 MCG/2 ML VIAL ONE (15:04)
[2017-08-11] MEDS ORDERED: Lidocaine -MPF 2% 2 ML VIAL ONE (15:05)
[2017-08-11] MEDS ORDERED: Ondansetron 4 MG/2 ML VIAL ONE (15:10)
[2017-08-11] MEDS ORDERED: Dexamethasone 4 MG/ML VIAL ONE (15:10)
--- NOTE | 2017-08-11 15:16 | Anesthesia Evaluation PreOp ---
Date of Encounter: 08/11/17 Time of Encounter: 15:14 - Past History Planned Operation: L ureteroscopic stone extraction Cardiac History: Denies any Significant Hx Pulmonary History: Denies Any Significant HX SHIP STEWARD History: Other (anxiety, depression) Other Medical History: Renal (stones), GERD (well controlled), Other (breast ca) Anesthesia History: No Prior Anesthetic Complications, Past Anesthesia (breast, several stone extraction) Alcohol Use: none Drug use: none Medications and Allergies Esomeprazole Magnesium [Nexium] 40 mg PO DAILY 10/17/14 [History] Multivit-Min/FA/Lycopen/Lutein [Centrum Silver Tablet] 1 tab PO DAILY 10/17/14 [ History] Escitalopram [Lexapro] 20 mg PO DAILY 07/10/15 [History] BuPROPion SR (12 HR) [Wellbutrin SR] 100 mg PO BID 01/07/16 [History] Gluc HCl/Csa/Collagen/Hyalur A [Glucosamine Chondroitin Cap] 1 each PO BID 05/05 [History] hydroCHLOROthiazide [Hydrochlorothiazide] 25 mg PO DAILY 05/05/16 [History] Zolpidem [Ambien] 5 mg PO HS 05/09/16 [History] Nortriptyline HCl 10 mg PO HS 03/26/17 [History] Cholestyramine 4 gm PO BID #60 powd.pack 08/06/17 [Rx] Docusate Sodium [Colace] 1 cap PO BID #60 capsule 08/06/17 [Rx] Ondansetron ODT [Zofran ODT] 4 mg SL Q6HR PRN #15 tab.rapdis 08/10/17 [Rx] Cholecalciferol (D-3) [Vitamin D] 1,000 unit PO DAILY 08/11/17 [History] Levothyroxine Sodium [Levoxyl] 88 mcg PO DAILY 08/11/17 [History] 3 Allergy/AdvReac Type Severity Reaction Status Date / Time Iodinated Contrast- Oral and AdvReac Hives Verified 08/10/17 19:19 IV Dye [Iodinated Contrast Media - Oral and] - Meds/Allergy Pre-op Review Medications Reviewed: Yes Allergies Reviewed: Yes Beta Blockers on Current Med List: No Anesthesia Results - Labs 08/11/17 05:16 08/11/17 05:16 Anesthesia Exam Vital Signs/O2 Sat, Most Current Temp Pulse Resp BP Pulse Ox 98 F 74 15 138/76 97 08/11/17 11:26 08/11/17 11:26 08/11/17 11:26 08/11/17 11:26 08/11/17 11:26 Height: 1.68m Weight: 65kg - HEENT Pupil (Motor): Pupils equal, EOMI Mallampati: III Teeth: Normal (prominent incisors and high arched palates, upper incisor caps) - SHIP STEWARD LOC: Oriented SHIP STEWARD Motor: Normal RUE, Normal LUE, Normal RLE, Normal LLE, Normal Face SHIP STEWARD Sensory: Deficit: RUE, LUE, RLE, LLE, Face - Cardiac Rhythm: Regular - Pulmonary Breath Sounds: bilateral Clear Respiratory Effort: Symmetrical Anesthesia Assess/Plan ASA Score: 3 Modified Kaycee Scale for Level of Consciousness: Cooperative, oriented, and tranquil Anesthetic Plan: General Monitoring Plan: Standard Monitors Recovery Plan: PACU
--- NOTE | 2017-08-11 16:25 | Operative Note ---
Date of procedure: 08/11/17 Pre-op diagnosis: left ureteral stone Post-op diagnosis: same Procedure: Left ureteroscopic laser lithotripsy of stone, left ureteroscopic basket retrieval stone fragment, left 4.8 x 26 cm ureteral stent placement Anesthesia: GETA Surgeon: Vidal Red Was there an neurology physician assistant present: No Estimated blood loss (cc): 0 Specimen: none Condition: stable Disposition: PACU Procedure in Detail: Patient was taken operating. Timeout procedure performed. I then inserted the semirigid ureteroscope into the patient's bladder. I cannulated the left ureteral orifice using a sensor wire. I was able to negotiate the scope into the left ureter. I encountered the distal 6 cm stone. I then using holmium laser fragment the stone. All stone fragments were then removed using a nitinol basket. The entire ureter was then surveyed with no further stone fragments seen. I then placed a sensor wire back into the left kidney. 4.8 x 26 cm stent was then placed with good curl seen in the left kidney and in the bladder. String was left for easy removal in 2-3 days.
[2017-08-11] MEDS ORDERED: Ketorolac 30 MG/ML VIAL ONE (16:42)
[2017-08-11] MEDS ORDERED: *HR* Promethazine 25 MG/ML VIAL ONE (16:44)
[2017-08-11] MEDS ORDERED: Ketorolac 30 MG/ML VIAL IVP ONE (16:49)
[2017-08-11] MEDS ORDERED: *HR* Promethazine 25 MG/ML VIAL IVP PRN (16:49)
--- NOTE | 2017-08-11 17:06 | Anesthesia Evaluation Post Op ---
Date of Encounter: 08/11/17 Time of Encounter: 17:05 - Vital Signs Vital Signs: Vital Signs/O2 Sat, Most Current Temp Pulse Resp BP Pulse Ox 98.7 F 79 14 123/64 92 08/11/17 16:56 08/11/17 16:56 08/11/17 16:56 08/11/17 16:56 08/11/17 16:56 - Lungs Lungs: Clear Ascult./Percussion (2 liters NC to floor) - Airway Airway: Non-obstructed - Cardiovascular Regular Rate, Baseline Rhythm - Mental Status Mental Status: Alert & Oriented, Answers Appropriately - Pain Pain Scale: 0 Pain Scale used: Numeric (1 - 10) - Nausea Vomiting Nausea Vomiting: Not Present - Hydration Hydration: Tolerates oral liquids, Ice chips, Has not voided - Discharge PostOp Status: Transfer Patient to floor
[2017-08-11] MEDS ORDERED: Ringers Solution, Lactated 1,000 ML ONE (17:10)
--- NOTE | 2017-08-11 17:16 | Internal Med Progress Note ---
Date of Encounter: 08/11/17 Time of Encounter: 10:30 - Assessment and plan (1) Ureteral stone Current Visit: Yes Status: Acute Assessment and plan: Distal ureteral stone with mild hydroureteronephrosis. 6 x 4 mm in size. S/p left ureteroscopic laser lithotripsy of stone, left ureteroscopic basket retrieval stone fragment and ureteral stent placement. Cont IV fluids, IV ceftriaxone. Urology following (2) Hydroureteronephrosis Current Visit: Yes Status: Acute Assessment and plan: secondary to uretal stone. Renal function normal. (3) Nausea & vomiting Current Visit: Yes Status: Acute Assessment and plan: Patient with intractable nausea and vomiting related to nephrolithiasis and ureteral stone. We will treat symptomatically. Keep patient nothing by mouth for now. IV fluids. Antiemetics Qualifiers: Vomiting type: cyclical vomiting Vomiting Intractability: intractable Qualified Code(s): G43.A1 - Cyclical vomiting, intractable (4) Essential hypertension Current Visit: Yes Status: Chronic Assessment and plan: per hx. BP controlled. Cont home BP medications. Monitor BP and titrate PRN (5) DVT prophylaxis Current Visit: No Status: Acute Assessment and plan: SCD - Time Spent With Patient Total time spent is greater than 50% in coordination of care (as documented) at patient's floor/unit and/or counseling patient: - Subjective Interval history: Seen and examined at bedside, patient is new to me. Information obtained from chart review and patient report. Says she feels better, still having ;lower mild ABD pain - Constitutional Vitals: Temp Pulse Resp BP Pulse Ox 98.7 F 77 14 122/58 100 08/11/17 16:56 08/11/17 17:06 08/11/17 17:06 08/11/17 17:06 08/11/17 17:06 General appearance: Present: cooperative, A&O X 3, answers questions appropriately - Head Head exam: Present: atraumatic, normocephalic - Eye Eye exam: Present: PERRL, conjuntiva pink, sclera anicteric Pupils: Present: PERRL - Neck Neck exam general surgery: Present: supple, trachea midline. Absent: lymphadenopathy - Respiratory Respiratory exam: Present: CTAB. Absent: accessory muscle use, rales, rhonchi, wheezes - Cardiovascular Cardiovascular exam: Present: RRR, +S1, +S2. Absent: diastolic murmur, gallop, rubs, systolic murmur - GI/Abdominal GI/Abdominal exam: Present: normal bowel sounds, soft, no peritoneal signs. Absent: distended, tenderness - Extremities Exam Extremities exam: Present: warm, radial pulses palpable and symmetrical. Absent : calf tenderness, cyanotic, pedal edema - Neurological Exam Neurological exam: Present: CN II-XII intact, oriented X3, no focal deficits. Absent: pronater drift, facial droop, speech deficit - Skin Skin exam: Present: dry, intact Internal Medicine: Result - Labs CBC & Chem 7: 08/11/17 05:16 08/11/17 05:16 Labs: Short CBC 08/11/17 Range/Units 05:16 WBC 5.8 (4.3-11.1) K/mcL Hgb 10.9 L D (11.5-15.4) g/dL Hct 32.6 L (35.3-44.9) % Plt Count 195 (140-400) K/mcL Neutrophils # 3.5 (1.6-8.9) K/mcL BMP 08/11/17 05:16 Sodium 143 Potassium 3.6 Chloride 112 H Carbon Dioxide 25 BUN 13 Creatinine 0.65 Glucose 86 Calcium 8.6 - ABG Interpretation ABG results: PT/INR, D-dimer PT 11.1 Seconds (9.4-12.1) 08/11/17 05:16 - Impressions Impressions Fluoroscopy 08/11/17 00:00 IMPRESSION: Intraprocedural fluoroscopic spot images as above. See separate procedure report for more information. D/ / 08/11/2017 16:58:13 Bran Tian MD / [email or web address] Interpreting Provider: Bran Tian MD Consult Discharge Plan - Plan Referrals: Levi Wooten MD [Primary Care Provider] -
[2017-08-11] MEDS: Ondansetron 4 MG/2 ML VIAL IVP PRN (19:21)
--- NOTE | 2017-08-11 20:51 | Electrocardiograph Report ---
[address] [place], [place] [address] Test Date: 2017-08-10 Pat Name: Omer Mcintosh Department: 102 Room: 3A13 Gender: F Table Cover Folder: : 1950 Requested By: Adeel Vila Order Number: [id number] Reading MD: Akash Shepherd Measurements Intervals [place] Rate: 85 P: 49 [place]: 143 QRS: 30 QRSD: 105 T: 19 QT: 374 QTc: 416 Interpretive Statements SINUS RHYTHM BASELINE ARTIFACT Electronically Signed On 08-11-2017 20:49:37 EDT by Akash Shepherd
[2017-08-12] MEDS: cefTRIAXone 1,000 MG in Water for inj. (sterile) 20 ML 10 ML IVPB SCH (02:20)
[2017-08-12] MEDS: Ringers Solution, Lactated 1,000 ML IVC SCH ×3 (02:31→13:55)
[2017-08-12 08:45] LABS: Basophils % 0.2 %; Hematocrit 34.9 % (35.3-44.9); Hemoglobin 11.3 g/dL (11.5-15.4); Immature Granulocytes % 0.2 % (0-4); Lymphocytes # 0.9 K/mcL (0.6-4.6); Lymphocytes % 17.2 %; Mean Corpuscular HGB Conc 32.4 g/dL (31.6-35.5); Mean Corpuscular Hemoglobin 31.4 pg (28.0-33.3); Mean Corpuscular Volume 96.9 fL (83.0-100.0); Mean Platelet Volume 10.3 fL (9.4-12.4); Monocytes # 0.5 K/mcL (0.0-1.3); Neutrophils # 3.9 K/mcL (1.6-8.9); Platelet Count 211 K/mcL (140-400); Red Cell Distribution Width 12.5 % (11.5-14.5); Segmented Neutrophils % 73.4 %
[2017-08-12 08:53] LABS: BUN/Creatinine Ratio 23 (6-26); Blood Urea Nitrogen 15 mg/dL (8-23); Carbon Dioxide 23 mEq/L (23-29); Chloride 109 mEq/L (98-107); Glucose 79 mg/dL (70-105); Osmolality,Calculated 290 (280-300); Potassium 4.2 mEq/L (3.5-5.1); Sodium 140 mEq/L (136-145); eGFR For African Americans > 60 (> 60); eGFR For Non-African Americans > 60 (> 60)
[2017-08-12] MEDS: Ondansetron 4 MG/2 ML VIAL IVP PRN ×2 (09:19→17:56)
[2017-08-12] MEDS: *HR* Promethazine 25 MG/ML VIAL IVP PRN (13:55)
--- NOTE | 2017-08-12 18:26 | Internal Med Progress Note ---
Date of Encounter: 08/12/17 Time of Encounter: 11:00 - Assessment and plan (1) Nausea & vomiting Current Visit: Yes Status: Acute Assessment and plan: Patient with intractable nausea and vomiting related to nephrolithiasis and ureteral stone. We will continue to monitor status post laser lithotripsy of stone Qualifiers: Vomiting type: cyclical vomiting Vomiting Intractability: intractable Qualified Code(s): G43.A1 - Cyclical vomiting, intractable (2) Ureteral stone Current Visit: Yes Status: Acute Assessment and plan: Distal ureteral stone with mild hydroureteronephrosis. Neurology consulted s/p Left ureteroscopic laser lithotripsy of stone with left ureteral stent placement String was left for easy removal in 2-3 days. (3) Hydroureteronephrosis Current Visit: Yes Status: Acute Assessment and plan: secondary to uretal stone. Renal function normal. (4) Essential hypertension Current Visit: Yes Status: Chronic Assessment and plan: per hx. BP controlled. Cont home BP medications. Monitor BP and titrate PRN (5) DVT prophylaxis Current Visit: No Status: Acute Assessment and plan: SCD - Time Spent With Patient Total time spent is greater than 50% in coordination of care (as documented) at patient's floor/unit and/or counseling patient: - Subjective Interval history: Patient postop day 1 for Left ureteroscopic laser lithotripsy of stone with left ureteral stent placement - Constitutional Vitals: Temp Pulse Resp BP Pulse Ox 97.9 F 75 16 114/53 97 08/12/17 15:02 08/12/17 15:02 08/12/17 15:02 08/12/17 15:02 08/12/17 15:02 General appearance: Present: cooperative, A&O X 3, no acute distress, answers questions appropriately - Respiratory Respiratory exam: Present: CTAB. Absent: accessory muscle use, rales, rhonchi, wheezes - Cardiovascular Cardiovascular exam: Present: RRR, +S1, +S2. Absent: diastolic murmur, gallop, rubs, systolic murmur Internal Medicine: Result - Labs CBC & Chem 7: 08/12/17 08:12 08/12/17 08:12 Labs: Short CBC 08/12/17 Range/Units 08:12 WBC 5.2 (4.3-11.1) K/mcL Hgb 11.3 L (11.5-15.4) g/dL Hct 34.9 L (35.3-44.9) % Plt Count 211 (140-400) K/mcL Neutrophils # 3.9 (1.6-8.9) K/mcL BMP 08/12/17 08:12 Sodium 140 Potassium 4.2 Chloride 109 H Carbon Dioxide 23 BUN 15 Creatinine 0.65 Glucose 79 Calcium 9.0 - ABG Interpretation ABG results: PT/INR, D-dimer PT 11.1 Seconds (9.4-12.1) 08/11/17 05:16 - VTE Documentation of Mechanical Device: Intermittent pneumatic compression device Consult Discharge Plan - Plan Referrals: Levi Wooten MD [Primary Care Provider] -
[2017-08-12] MEDS: BuPROPion SR (12 HR) 100 MG TABLET PO SCH (20:03)
[2017-08-13] MEDS: cefTRIAXone 1,000 MG in Water for inj. (sterile) 20 ML 10 ML IVPB SCH (00:20)
[2017-08-13] MEDS: Ringers Solution, Lactated 1,000 ML IVC SCH ×3 (00:20→21:44)
--- NOTE | 2017-08-13 06:48 | Urology Progress Note ---
Date of Encounter: 08/12/17 Time of Encounter: 12:00 - Assessment and Plan (1) Nausea & vomiting Current Visit: Yes Status: Acute Assessment and plan: may be secondary to other cause Qualifiers: Vomiting type: cyclical vomiting Vomiting Intractability: intractable Qualified Code(s): G43.A1 - Cyclical vomiting, intractable (2) Ureteral stone Current Visit: Yes Status: Acute Assessment and plan: ok for patient to remove stent or Thursday. patient to f/u in 1-2 months. Progress Note Narrative: Late entry Evaluated patient yesterday. pain gone, but still with n/v. Objective Initial Vital Signs Temp Pulse Resp BP Pulse Ox 98.1 F 83 14 145/76 96 08/10/17 15:51 08/10/17 15:51 08/10/17 15:51 08/10/17 15:51 08/10/17 15:51 - General physical appearance Present: well developed, well nourished - Abdomen Present: soft. Absent: tender - Labs 08/12/17 08:12 08/12/17 08:12 Diabetes panel 08/12/17 Range/Units 08:12 Sodium 140 (136-145) mEq/L Potassium 4.2 (3.5-5.1) mEq/L Chloride 109 H (98-107) mEq/L Carbon Dioxide 23 (23-29) mEq/L BUN 15 (8-23) mg/dL Creatinine 0.65 (0.60-1.20) mg/dL Glucose 79 (70-105) mg/dL Calcium 9.0 (8.6-10.3) mg/dL Calcium panel 08/12/17 Range/Units 08:12 Calcium 9.0 (8.6-10.3) mg/dL Pituitary panel 08/12/17 Range/Units 08:12 Sodium 140 (136-145) mEq/L Potassium 4.2 (3.5-5.1) mEq/L Chloride 109 H (98-107) mEq/L Carbon Dioxide 23 (23-29) mEq/L BUN 15 (8-23) mg/dL Creatinine 0.65 (0.60-1.20) mg/dL Glucose 79 (70-105) mg/dL Calcium 9.0 (8.6-10.3) mg/dL Adrenal panel 06/06/18 Range/Units 08:12 Sodium 140 (136-145) mEq/L Potassium 4.2 (3.5-5.1) mEq/L Chloride 109 H (98-107) mEq/L Carbon Dioxide 23 (23-29) mEq/L BUN 15 (8-23) mg/dL Creatinine 0.65 (0.60-1.20) mg/dL Glucose 79 (70-105) mg/dL Calcium 9.0 (8.6-10.3) mg/dL - VTE Documentation of Mechanical Device: Intermittent pneumatic compression device Consult Discharge Plan - Plan Referrals: Levi Wooten MD [Primary Care Provider] -
[2017-08-13] MEDS: Ondansetron 4 MG/2 ML VIAL IVP PRN (09:15)
[2017-08-13] MEDS: BuPROPion SR (12 HR) 100 MG TABLET PO SCH ×2 (09:20→21:49)
[2017-08-13 10:33] LABS: Basophils % 0.6 %; Eosinophils # 0.2 K/mcL (0.0-0.6); Eosinophils % 4.5 %; Hematocrit 35.1 % (35.3-44.9); Hemoglobin 11.1 g/dL (11.5-15.4); Immature Granulocytes % 0.4 % (0-4); Lymphocytes # 1.2 K/mcL (0.6-4.6); Lymphocytes % 22.4 %; Mean Corpuscular HGB Conc 31.6 g/dL (31.6-35.5); Mean Corpuscular Hemoglobin 31.2 pg (28.0-33.3); Mean Corpuscular Volume 98.6 fL (83.0-100.0); Mean Platelet Volume 10.4 fL (9.4-12.4); Monocytes # 0.6 K/mcL (0.0-1.3); Monocytes % 11.3 %; Neutrophils # 3.3 K/mcL (1.6-8.9); Platelet Count 198 K/mcL (140-400); Red Blood Count 3.56 M/mcL (3.82-4.97); Red Cell Distribution Width 12.8 % (11.5-14.5); Segmented Neutrophils % 60.8 %
[2017-08-13 10:50] LABS: BUN/Creatinine Ratio 19 (6-26); Blood Urea Nitrogen 14 mg/dL (8-23); Calcium 8.8 mg/dL (8.6-10.3); Carbon Dioxide 26 mEq/L (23-29); Chloride 111 mEq/L (98-107); Glucose 113 mg/dL (70-105); Osmolality,Calculated 301 (280-300); Potassium 3.6 mEq/L (3.5-5.1); Sodium 145 mEq/L (136-145); eGFR For African Americans > 60 (> 60); eGFR For Non-African Americans > 60 (> 60)
--- NOTE | 2017-08-13 19:48 | Internal Med Progress Note ---
Date of Encounter: 08/14/17 Time of Encounter: 11:00 - Assessment and plan (1) Nausea & vomiting Current Visit: Yes Status: Acute Assessment and plan: Patient still not able to tolerate by mouth without nausea/vomiting GI consulted with recommendations for EGD on 08/14/17 Qualifiers: Vomiting type: cyclical vomiting Vomiting Intractability: intractable Qualified Code(s): G43.A1 - Cyclical vomiting, intractable (2) Ureteral stone Current Visit: Yes Status: Acute Assessment and plan: Distal ureteral stone with mild hydroureteronephrosis. Urology was consulted s/p Left ureteroscopic laser lithotripsy of stone with left ureteral stent placement postop day 2 String was left for easy removal in 2-3 days. (3) Hydroureteronephrosis Current Visit: Yes Status: Acute Assessment and plan: secondary to uretal stone. Renal function normal. (4) Essential hypertension Current Visit: Yes Status: Chronic Assessment and plan: per hx. BP controlled. Cont home BP medications. Monitor BP and titrate PRN (5) DVT prophylaxis Current Visit: No Status: Acute Assessment and plan: SCD - Time Spent With Patient Total time spent is greater than 50% in coordination of care (as documented) at patient's floor/unit and/or counseling patient: - Subjective Interval history: Patient postop day 2 for Left ureteroscopic laser lithotripsy of stone with left ureteral stent placement Patient still not able to tolerate by mouth without nausea/vomiting - Constitutional Vitals: Temp Pulse Resp BP Pulse Ox 98.2 F 67 14 151/77 96 08/13/17 19:29 08/13/17 19:29 08/13/17 19:29 08/13/17 19:29 08/13/17 19:29 General appearance: Present: cooperative, A&O X 3, no acute distress, answers questions appropriately - Respiratory Respiratory exam: Present: CTAB. Absent: accessory muscle use, rales, rhonchi, wheezes - Cardiovascular Cardiovascular exam: Present: RRR, +S1, +S2. Absent: diastolic murmur, gallop, rubs, systolic murmur Internal Medicine: Result - Labs CBC & Chem 7: 08/13/17 09:53 08/13/17 09:53 Labs: Short CBC 08/13/17 Range/Units 09:53 WBC 5.4 (4.3-11.1) K/mcL Hgb 11.1 L (11.5-15.4) g/dL Hct 35.1 L (35.3-44.9) % Plt Count 198 (140-400) K/mcL Neutrophils # 3.3 (1.6-8.9) K/mcL BMP 08/13/17 09:53 Sodium 145 Potassium 3.6 Chloride 111 H Carbon Dioxide 26 BUN 14 Creatinine 0.73 Glucose 113 H Calcium 8.8 - ABG Interpretation ABG results: PT/INR, D-dimer PT 11.1 Seconds (9.4-12.1) 08/11/17 05:16 - VTE Documentation of Mechanical Device: Intermittent pneumatic compression device Consult Discharge Plan - Plan Referrals: Levi Wooten MD [Primary Care Provider] -
[2017-08-14] MEDS: cefTRIAXone 1,000 MG in Water for inj. (sterile) 20 ML 10 ML IVPB SCH (00:03)
[2017-08-14] MEDS: Ringers Solution, Lactated 1,000 ML IVC SCH ×2 (07:57→23:29)
[2017-08-14] MEDS: BuPROPion SR (12 HR) 100 MG TABLET PO SCH ×2 (07:58→21:00)
[2017-08-14] MEDS ORDERED: Lidocaine -MPF 2% 2 ML VIAL ONE (08:34)
[2017-08-14] MEDS ORDERED: *HR* Propofol 200 MG/20 ML VIAL IVP ONE (08:35)
[2017-08-14] MEDS ORDERED: Ondansetron 4 MG/2 ML VIAL ONE (08:46)
[2017-08-14 08:48] LABS: Basophils % 0.5 %; Eosinophils # 0.3 K/mcL (0.0-0.6); Eosinophils % 4.9 %; Hematocrit 37.1 % (35.3-44.9); Hemoglobin 12.1 g/dL (11.5-15.4); Immature Granulocytes % 0.5 % (0-4); Lymphocytes # 1.6 K/mcL (0.6-4.6); Lymphocytes % 26.1 %; Mean Corpuscular HGB Conc 32.6 g/dL (31.6-35.5); Mean Corpuscular Hemoglobin 31.8 pg (28.0-33.3); Mean Corpuscular Volume 97.6 fL (83.0-100.0); Mean Platelet Volume 10.5 fL (9.4-12.4); Monocytes # 0.6 K/mcL (0.0-1.3); Monocytes % 10.3 %; Neutrophils # 3.5 K/mcL (1.6-8.9); Platelet Count 201 K/mcL (140-400); Red Cell Distribution Width 12.5 % (11.5-14.5); Segmented Neutrophils % 57.7 %
[2017-08-14 09:06] LABS: BUN/Creatinine Ratio 19 (6-26); Blood Urea Nitrogen 11 mg/dL (8-23); Carbon Dioxide 26 mEq/L (23-29); Chloride 106 mEq/L (98-107); Glucose 70 mg/dL (70-105); Osmolality,Calculated 288 (280-300); Potassium 3.7 mEq/L (3.5-5.1); Sodium 140 mEq/L (136-145); eGFR For African Americans > 60 (> 60); eGFR For Non-African Americans > 60 (> 60)
--- NOTE | 2017-08-14 09:19 | Anesthesia Evaluation PreOp ---
Date of Encounter: 08/14/17 Time of Encounter: 09:16 - Past History Planned Operation: EGD Cardiac History: Denies any Significant Hx Pulmonary History: Denies Any Significant HX SQE History: Other (depression) Other Medical History: Renal (stones), Thyroid (hypo), GERD, Other (breast cancer) Anesthesia History: No Prior Anesthetic Complications, Past Anesthesia (breast sx., stone extraction 08-11-17) Alcohol Use: none Drug use: none Medications and Allergies Esomeprazole Magnesium [Nexium] 40 mg PO DAILY 10/17/14 [History] Multivit-Min/FA/Lycopen/Lutein [Centrum Silver Tablet] 1 tab PO DAILY 10/17/14 [ History] Escitalopram [Lexapro] 20 mg PO DAILY 07/10/15 [History] BuPROPion SR (12 HR) [Wellbutrin SR] 100 mg PO BID 01/07/16 [History] Gluc HCl/Csa/Collagen/Hyalur A [Glucosamine Chondroitin Cap] 1 each PO BID 05/05 [History] hydroCHLOROthiazide [Hydrochlorothiazide] 25 mg PO DAILY 05/05/16 [History] Zolpidem [Ambien] 5 mg PO HS 05/09/16 [History] Nortriptyline HCl 10 mg PO HS 03/26/17 [History] Cholestyramine 4 gm PO BID #60 powd.pack 08/06/17 [Rx] Docusate Sodium [Colace] 1 cap PO BID #60 capsule 08/06/17 [Rx] Ondansetron ODT [Zofran ODT] 4 mg SL Q6HR PRN #15 tab.rapdis 08/10/17 [Rx] Cholecalciferol (D-3) [Vitamin D] 1,000 unit PO DAILY 08/11/17 [History] Levothyroxine Sodium [Levoxyl] 88 mcg PO DAILY 08/11/17 [History] 3 Allergy/AdvReac Type Severity Reaction Status Date / Time Iodinated Contrast- Oral and AdvReac Hives Verified 08/10/17 19:19 IV Dye [Iodinated Contrast Media - Oral and] - Meds/Allergy Pre-op Review Medications Reviewed: Yes Allergies Reviewed: Yes Beta Blockers on Current Med List: No Anesthesia Results - Labs 08/14/17 08:33 08/14/17 08:33 Anesthesia Exam Selected Entries 08/14/17 06:43 Temperature 97.8 F Pulse Rate 67 Respiratory Rate 15 Blood Pressure 115/71 O2 Sat by Pulse Oximetry 97 Oxygen Delivery Method Room Air Weight: 67kg NPO (# of Hours): 8 - HEENT Pupil (Motor): EOMI Mallampati: III Teeth: Normal Oral Opening: Greater than 3 - SQE LOC: Oriented SQE Motor: Normal RUE, Normal LUE, Normal RLE, Normal LLE, Normal Face SQE Sensory: Normal: RUE, LUE, RLE, LLE, Face - Cardiac Rhythm: Regular Murmur: None - Pulmonary Breath Sounds: bilateral Clear Respiratory Effort: Symmetrical Anesthesia Assess/Plan ASA Score: 2 Modified [place] Scale for Level of Consciousness: Cooperative, oriented, and tranquil Anesthetic Plan: MAC Monitoring Plan: Standard Monitors Recovery Plan: Other (agrees to MAC)
[2017-08-14] MEDS: 0.9 % Sodium Chloride 1,000 ML IVC SCH (09:30)
--- NOTE | 2017-08-14 09:51 | Anesthesia Evaluation Post Op ---
Date of Encounter: 08/14/17 Time of Encounter: 09:50 - Vital Signs Vital Signs: 153/66, HR 99, RR12, 99% - Lungs Lungs: Clear Ascult./Percussion - Airway Airway: Non-obstructed - Cardiovascular Regular Rate - Mental Status Mental Status: Alert & Oriented, Answers Appropriately - Pain Pain Scale: 0 Pain Scale used: Numeric (1 - 10) - Nausea Vomiting Nausea Vomiting: Not Present - Hydration Hydration: Has not voided - Discharge PostOp Status: Transfer Patient to floor
--- NOTE | 2017-08-14 11:09 | Gastroenterology Consult Note ---
<VasquezVj simpson Nathen - Last Filed: 08/14/17 11:07> Date of Encounter: 08/14/17 Time of Encounter: 10:05 - Assessment and plan (1) Nausea & vomiting Current Visit: Yes Status: Acute Assessment and plan: Continue anti-emetic. Plan for EGD today to r/o esophagitis, gastritis, duodenitis, PUD, MW tear, or AVM. Start PPI. Follow up in GI office in 3-4 weeks. Qualifiers: Vomiting type: cyclical vomiting Vomiting Intractability: intractable Qualified Code(s): G43.A1 - Cyclical vomiting, intractable (2) Dyspepsia Current Visit: Yes Status: Acute Assessment and plan: Patient educated regarding lifestyle modifications including: (1) avoidance of foods that may precipitate reflux (eg, coffee, alcohol, chocolate, fatty foods) . (2) avoidance of acidic foods that may precipitate heartburn (eg, citrus, carbonated drinks, spicy foods). (3) adoption of behaviors that may reduce esophageal acid exposure (see weight loss, smoking cessation, raising the head of the bed, and avoiding recumbency for 2-3 hours after meals). - Time Spent With Patient Total time spent is greater than 50% in coordination of care (as documented) at patient's floor/unit and/or counseling patient: GI History of Present Illness - Data of Consult Patient: known to practice within the last 3 years Consult date: 08/14/17 Requesting Physician: Fahad Lyon - Consult Narrative Reason for consult: Nausea and vomiting History of present illness: Ms. Mcintosh is a 67 year old female with PMHx of HTN, depression, kidney stones who presented to the ED with c/o nausea and vomiting for [address] A/P with no bowel obstuction but did show a stone in the distal left ureter. Urology was consulted s/p left ureteroscopic laser lithotripsy of stone with left ureteral stent placement on 08/11. Pt is still unable to tolerate PO intake without nausea and vomiting. We have been consulted to evaluate her nausea and vomiting. Patient reports reflux symptoms and epigastric pain. Procedures: Colonoscopy 01/07/2016 Dr. Friedman: Tubular adenoma and hyperplastic polys, ranging from 6-12mm, internal hemorrhoids, repeat 3 years. EGD 05/03/2010 Dr. VanVoorhis: LA Grade A reflus esophagitis, hiatal hernia, gastritis, duodenitis. NSAIDs: None Anticoagulation: None Past Med Surg Social Fam HX - Past Medical History Medical history: cancer, thyroid disease Additional medical history: breast cancer Psychiatric history: anxiety, depression - Past Surgical History Surgical History: appendectomy, breast surgery, herniorrhaphy, hysterectomy, other Additional surgical history: kidney stones, tubal ligation, bowel surgery, left mastectomy, hernia repair - Social History Smoking Status: Never smoker Smokeless Tobacco Status: No Alcohol use: none Drug use: none - Family History Mother Living Status: Hx Family Cancer: Yes (Ovarian) Hx Family Endocrine Disorder: Yes (DM) Father Living Status: Hx Family Cancer: Yes (Prostate and colon) - Gastrointestinal Gastrointestinal: Present: as per HPI - Constitutional Constitutional: as per HPI - EENT Eyes: as per HPI Ears: Present: as per HPI Nose, mouth and throat: Present: as per HPI - Cardiovascular Cardiovascular ROS: Present: as per HPI - Respiratory Respiratory IM: Present: as per HPI - Genitourinary Genitourinary: Absent: change in color, Urinary frequency - Neurological ROS Neurological GI: Present: as per HPI - Hematologic/Lymphatic Hematologic/Lymphatic pediatric: Present: as per HPI - Musculoskeletal Musculoskeletal ROS GI: Present: as per HPI - Integumentary Integumentary GI: Present: as per HPI - Psychiatric ROS Psychiatric GI: Present: as per HPI - Endocrine Endocrine IM: Present: as per HPI - Constitutional Vitals: Temp Pulse Resp BP Pulse Ox 99 F 75 16 141/76 94 08/14/17 10:05 08/14/17 10:05 08/14/17 10:05 08/14/17 10:05 08/14/17 10:05 General appearance: Present: cooperative, A&O X 3, no acute distress, answers questions appropriately - Head Head exam: Present: atraumatic, normocephalic - Eye Eye exam: Present: normal appearance, sclera anicteric - ENT ENT exam: Present: mucous membranes dry - Neck Neck exam general surgery: Present: normal inspection, trachea midline - Respiratory Respiratory exam: Present: CTAB. Absent: rales, rhonchi - Cardiovascular Cardiovascular exam: Present: RRR, +S1, +S2 - GI/Abdominal GI/Abdominal exam: Present: soft, tenderness (epigastric), no peritoneal signs. Absent: distended, firm, guarding Additional comments: Midline abdominal scar - Rectal Rectal exam: Present: deferred - Extremities Exam Extremities exam: Present: warm - Neurological Exam Neurological exam: Present: no focal deficits - Psychiatric Psychiatric exam: Present: normal affect, normal mood - Skin Skin exam: Present: dry, intact, normal color, warm Results - Labs CBC & Chem 7: 08/14/17 08:33 08/14/17 08:33 Labs: Last Result Calcium 9.0 mg/dL (8.6-10.3) 08/14/17 08:33 Troponin I < 0.03 ng/mL (< 0.04) 08/10/17 16:54 Entire Visit Hgb 12.1 g/dL (11.5-15.4) 08/14/17 08:33 Hct 37.1 % (35.3-44.9) 08/14/17 08:33 PT 11.1 Seconds (9.4-12.1) 08/11/17 05:16 Total Bilirubin 0.3 mg/dL (0.3-1.0) 08/10/17 16:54 AST 16 Units/L (13-39) 08/10/17 16:54 ALT 10 Units/L (7-52) 08/10/17 16:54 Lipase 56 Units/L (11-82) 08/10/17 16:54 - ABG ABG results: PT/INR, D-dimer PT 11.1 Seconds (9.4-12.1) 08/11/17 05:16 Consult Discharge Plan - Plan Referrals: Levi Wooten MD [Primary Care Provider] - <Ottoniel Friedman - Last Filed: 08/14/17 12:49> Date of Encounter: 08/14/17 Time of Encounter: 09:00 - Time Spent With Patient Total time spent is greater than 50% in coordination of care (as documented) at patient's floor/unit and/or counseling patient: GI History of Present Illness - Data of Consult Requesting Physician: Fahad Lyon - Consult Narrative History of present illness: Ms. Mcintosh is a 67 year old female - Constitutional Vitals: Temp Pulse Resp BP Pulse Ox 99 F 75 16 141/76 94 08/14/17 10:05 08/14/17 10:05 08/14/17 10:05 08/14/17 10:05 08/14/17 10:05 Results - Labs CBC & Chem 7: 08/14/17 08:33 08/14/17 08:33 Labs: Last Result Calcium 9.0 mg/dL (8.6-10.3) 08/14/17 08:33 Troponin I < 0.03 ng/mL (< 0.04) 08/10/17 16:54 Entire Visit Hgb 12.1 g/dL (11.5-15.4) 08/14/17 08:33 Hct 37.1 % (35.3-44.9) 08/14/17 08:33 PT 11.1 Seconds (9.4-12.1) 08/11/17 05:16 Total Bilirubin 0.3 mg/dL (0.3-1.0) 08/10/17 16:54 AST 16 Units/L (13-39) 08/10/17 16:54 ALT 10 Units/L (7-52) 08/10/17 16:54 Lipase 56 Units/L (11-82) 08/10/17 16:54 - ABG ABG results: PT/INR, D-dimer PT 11.1 Seconds (9.4-12.1) 08/11/17 05:16 - Attending Attestation I have personally performed a face to face evaluation on this patient. I have reviewed and agree with the care plan. History and Exam by me shows: Patient seen. Patient with the nausea and vomiting denies any abdominal pain or trouble swallowing. Still symptomatic despite anti-emetics. Recommendation : EGD to rule out upper GI causes for her symptoms
[2017-08-14] MEDS: Ondansetron 4 MG/2 ML VIAL IVP PRN (13:19)
[2017-08-14] MEDS: Pantoprazole 40 MG VIAL IVP SCH (15:56)
[2017-08-14] MEDS: *HR* Promethazine 25 MG/ML VIAL IVP PRN (18:49)
--- NOTE | 2017-08-14 19:34 | Internal Med Progress Note ---
Date of Encounter: 08/15/17 Time of Encounter: 11:00 - Assessment and plan (1) Nausea & vomiting Current Visit: Yes Status: Acute Assessment and plan: Patient still not able to tolerate by mouth without nausea/vomiting GI consulted with recommendations for EGD today Qualifiers: Vomiting type: cyclical vomiting Vomiting Intractability: intractable Qualified Code(s): G43.A1 - Cyclical vomiting, intractable (2) Ureteral stone Current Visit: Yes Status: Acute Assessment and plan: Distal ureteral stone with mild hydroureteronephrosis. Urology was consulted s/p Left ureteroscopic laser lithotripsy of stone with left ureteral stent placement postop day 2 String was left for easy removal in 2-3 days. (3) Hydroureteronephrosis Current Visit: Yes Status: Acute Assessment and plan: secondary to uretal stone. Renal function normal. (4) Essential hypertension Current Visit: Yes Status: Chronic Assessment and plan: per hx. BP controlled. Cont home BP medications. Monitor BP and titrate PRN (5) DVT prophylaxis Current Visit: No Status: Acute Assessment and plan: SCD - Time Spent With Patient Total time spent is greater than 50% in coordination of care (as documented) at patient's floor/unit and/or counseling patient: - Subjective Interval history: Patient postop day 3 for Left ureteroscopic laser lithotripsy of stone with left ureteral stent placement Patient still not able to tolerate by mouth without nausea/vomiting She is scheduled for EGD today - Constitutional Vitals: Temp Pulse Resp BP Pulse Ox 98.5 F 68 16 125/76 98 08/14/17 18:45 08/14/17 18:45 08/14/17 18:45 08/14/17 18:45 08/14/17 18:45 General appearance: Present: cooperative, A&O X 3, no acute distress, answers questions appropriately - Respiratory Respiratory exam: Present: CTAB. Absent: accessory muscle use, rales, rhonchi, wheezes - Cardiovascular Cardiovascular exam: Present: RRR, +S1, +S2. Absent: diastolic murmur, gallop, rubs, systolic murmur Internal Medicine: Result - Labs CBC & Chem 7: 08/14/17 08:33 08/14/17 08:33 Labs: Short CBC 08/14/17 Range/Units 08:33 WBC 6.1 (4.3-11.1) K/mcL Hgb 12.1 (11.5-15.4) g/dL Hct 37.1 (35.3-44.9) % Plt Count 201 (140-400) K/mcL Neutrophils # 3.5 (1.6-8.9) K/mcL BMP 08/14/17 08:33 Sodium 140 Potassium 3.7 Chloride 106 Carbon Dioxide 26 BUN 11 Creatinine 0.57 L Glucose 70 Calcium 9.0 - ABG Interpretation ABG results: PT/INR, D-dimer PT 11.1 Seconds (9.4-12.1) 08/11/17 05:16 - VTE Documentation of Mechanical Device: Intermittent pneumatic compression device Consult Discharge Plan - Plan Referrals: Levi Wooten MD [Primary Care Provider] -
[2017-08-15] MEDS: cefTRIAXone 1,000 MG in Water for inj. (sterile) 20 ML 10 ML IVPB SCH (01:05)
[2017-08-15] MEDS: 0.9 % Sodium Chloride 1,000 ML IVC SCH (05:44)
[2017-08-15 08:55] LABS: Basophils % 0.5 %; Eosinophils # 0.3 K/mcL (0.0-0.6); Eosinophils % 7.3 %; Hematocrit 35.7 % (35.3-44.9); Hemoglobin 11.8 g/dL (11.5-15.4); Immature Granulocytes % 0.2 % (0-4); Lymphocytes % 22.2 %; Mean Corpuscular HGB Conc 33.1 g/dL (31.6-35.5); Mean Corpuscular Hemoglobin 31.5 pg (28.0-33.3); Mean Corpuscular Volume 95.2 fL (83.0-100.0); Mean Platelet Volume 10.4 fL (9.4-12.4); Monocytes # 0.5 K/mcL (0.0-1.3); Monocytes % 10.7 %; Neutrophils # 2.6 K/mcL (1.6-8.9); Platelet Count 185 K/mcL (140-400); Red Blood Count 3.75 M/mcL (3.82-4.97); Red Cell Distribution Width 12.5 % (11.5-14.5); Segmented Neutrophils % 59.1 %
[2017-08-15 09:13] LABS: BUN/Creatinine Ratio 15 (6-26); Blood Urea Nitrogen 9 mg/dL (8-23); Calcium 9.1 mg/dL (8.6-10.3); Carbon Dioxide 27 mEq/L (23-29); Chloride 107 mEq/L (98-107); Glucose 81 mg/dL (70-105); Osmolality,Calculated 286 (280-300); Potassium 3.8 mEq/L (3.5-5.1); Sodium 139 mEq/L (136-145); eGFR For African Americans > 60 (> 60); eGFR For Non-African Americans > 60 (> 60)
[2017-08-15] MEDS: Pantoprazole 40 MG VIAL IVP SCH (09:22)
[2017-08-15] MEDS: BuPROPion SR (12 HR) 100 MG TABLET PO SCH ×2 (09:22→21:38)
[2017-08-15] MEDS: Ondansetron 4 MG/2 ML VIAL IVP PRN (09:23)
[2017-08-15] MEDS: Ringers Solution, Lactated 1,000 ML IVC SCH ×3 (09:23→21:40)
--- NOTE | 2017-08-15 18:24 | Internal Med Progress Note ---
Date of Encounter: 08/15/17 Time of Encounter: 11:00 - Assessment and plan (1) Nausea & vomiting Current Visit: Yes Status: Acute Assessment and plan: Patient still not able to tolerate by mouth without nausea/vomiting GI consulted with recommendations for EGD which showed no abnormal findings CT of the abdomen did not show any bowel obstruction Try patient on Reglan and consider small bowel follow-through Qualifiers: Vomiting type: cyclical vomiting Vomiting Intractability: intractable Qualified Code(s): G43.A1 - Cyclical vomiting, intractable (2) Ureteral stone Current Visit: Yes Status: Acute Assessment and plan: Distal ureteral stone with mild hydroureteronephrosis. Urology was consulted s/p Left ureteroscopic laser lithotripsy of stone with left ureteral stent placement postop day 2 String was left for easy removal in 2-3 days. (3) Hydroureteronephrosis Current Visit: Yes Status: Acute Assessment and plan: secondary to uretal stone. Renal function normal. (4) Essential hypertension Current Visit: Yes Status: Chronic Assessment and plan: per hx. BP controlled. Cont home BP medications. Monitor BP and titrate PRN (5) DVT prophylaxis Current Visit: No Status: Acute Assessment and plan: SCD - Time Spent With Patient Total time spent is greater than 50% in coordination of care (as documented) at patient's floor/unit and/or counseling patient: - Subjective Interval history: Patient postop day 4 for Left ureteroscopic laser lithotripsy of stone with left ureteral stent placement Patient still not able to tolerate by mouth without nausea/vomiting She does report of flatulence - Constitutional Vitals: Temp Pulse Resp BP Pulse Ox 98.2 F 76 18 136/61 97 08/15/17 16:03 08/15/17 16:03 08/15/17 16:03 08/15/17 16:03 08/15/17 16:03 General appearance: Present: cooperative, A&O X 3, no acute distress, answers questions appropriately - Respiratory Respiratory exam: Present: CTAB. Absent: accessory muscle use, rales, rhonchi, wheezes - Cardiovascular Cardiovascular exam: Present: RRR, +S1, +S2. Absent: diastolic murmur, gallop, rubs, systolic murmur - GI/Abdominal GI/Abdominal exam: Present: normal bowel sounds, soft, no peritoneal signs. Absent: distended, tenderness Internal Medicine: Result - Labs CBC & Chem 7: 08/15/17 08:36 08/15/17 08:36 Labs: Short CBC 08/15/17 Range/Units 08:36 WBC 4.4 (4.3-11.1) K/mcL Hgb 11.8 (11.5-15.4) g/dL Hct 35.7 (35.3-44.9) % Plt Count 185 (140-400) K/mcL Neutrophils # 2.6 (1.6-8.9) K/mcL BMP 08/15/17 08:36 Sodium 139 Potassium 3.8 Chloride 107 Carbon Dioxide 27 BUN 9 Creatinine 0.60 Glucose 81 Calcium 9.1 - ABG Interpretation ABG results: PT/INR, D-dimer PT 11.1 Seconds (9.4-12.1) 08/11/17 05:16 - Impressions Impressions Abdomen Ultrasound 08/15/17 10:58 IMPRESSION: 1. Cholelithiasis with gallbladder wall thickening could be seen with cholecystitis. D/ / Willy Currie MD / Willy Currie MD Interpreting Provider: Willy Currie MD - VTE Documentation of Mechanical Device: Intermittent pneumatic compression device Consult Discharge Plan - Plan Referrals: Levi Wooten MD [Primary Care Provider] -
[2017-08-16] MEDS: Metoclopramide 10 MG/2 ML VIAL IVP SCH ×4 (00:39→14:34)
[2017-08-16] MEDS: cefTRIAXone 1,000 MG in Water for inj. (sterile) 20 ML 10 ML IVPB SCH (00:39)
[2017-08-16] MEDS: 0.9 % Sodium Chloride 1,000 ML IVC SCH ×2 (03:50→19:24)
[2017-08-16 08:59] LABS: Basophils % 0.4 %; Eosinophils # 0.4 K/mcL (0.0-0.6); Eosinophils % 7.4 %; Immature Granulocytes % 0.4 % (0-4); Lymphocytes # 1.2 K/mcL (0.6-4.6); Lymphocytes % 25.5 %; Mean Corpuscular HGB Conc 33.3 g/dL (31.6-35.5); Mean Corpuscular Hemoglobin 31.7 pg (28.0-33.3); Mean Corpuscular Volume 95.2 fL (83.0-100.0); Mean Platelet Volume 10.6 fL (9.4-12.4); Monocytes # 0.4 K/mcL (0.0-1.3); Monocytes % 8.9 %; Neutrophils # 2.7 K/mcL (1.6-8.9); Platelet Count 204 K/mcL (140-400); Red Blood Count 3.78 M/mcL (3.82-4.97); Red Cell Distribution Width 12.5 % (11.5-14.5); Segmented Neutrophils % 57.4 %
[2017-08-16 09:37] LABS: BUN/Creatinine Ratio 11 (6-26); Blood Urea Nitrogen 7 mg/dL (8-23); Calcium 9.2 mg/dL (8.6-10.3); Carbon Dioxide 27 mEq/L (23-29); Chloride 109 mEq/L (98-107); Glucose 92 mg/dL (70-105); Osmolality,Calculated 292 (280-300); Potassium 3.8 mEq/L (3.5-5.1); Sodium 142 mEq/L (136-145); eGFR For African Americans > 60 (> 60); eGFR For Non-African Americans > 60 (> 60)
[2017-08-16] MEDS: BuPROPion SR (12 HR) 100 MG TABLET PO SCH ×2 (09:50→20:23)
[2017-08-16] MEDS: Pantoprazole 40 MG VIAL IVP SCH (09:51)
[2017-08-16] MEDS: Ondansetron 4 MG/2 ML VIAL IVP PRN (09:51)
[2017-08-16] MEDS: Ringers Solution, Lactated 1,000 ML IVC SCH ×2 (14:27→22:51)
--- NOTE | 2017-08-16 18:37 | Internal Med Progress Note ---
Date of Encounter: 08/16/17 Time of Encounter: 11:00 - Assessment and plan (1) Nausea & vomiting Current Visit: Yes Status: Acute Assessment and plan: Patient still not able to tolerate by mouth without nausea/vomiting GI consulted with recommendations for EGD which showed no abnormal findings CT of the abdomen did not show any bowel obstruction Plan for a gastric emptying study on 08/18/17 Qualifiers: Vomiting type: cyclical vomiting Vomiting Intractability: intractable Qualified Code(s): G43.A1 - Cyclical vomiting, intractable (2) Cholelithiases Current Visit: Yes Status: Acute Assessment and plan: Right upper quadrant ultrasound showed cholelithiasis Qualifiers: Qualified Code(s): K80.20 - Calculus of gallbladder without cholecystitis without obstruction (3) Ureteral stone Current Visit: Yes Status: Acute Assessment and plan: Distal ureteral stone with mild hydroureteronephrosis. Urology was consulted s/p Left ureteroscopic laser lithotripsy of stone with left ureteral stent placement postop day 2 String was left for easy removal in 2-3 days. (4) Hydroureteronephrosis Current Visit: Yes Status: Acute Assessment and plan: secondary to uretal stone. Renal function normal. (5) Essential hypertension Current Visit: Yes Status: Chronic Assessment and plan: per hx. BP controlled. Cont home BP medications. Monitor BP and titrate PRN (6) DVT prophylaxis Current Visit: No Status: Acute Assessment and plan: SCD - Time Spent With Patient Total time spent is greater than 50% in coordination of care (as documented) at patient's floor/unit and/or counseling patient: - Subjective Interval history: Patient still not able to tolerate by mouth without nausea/vomiting Will plan for a gastric emptying study scheduled for 08/18/17 She was found to have cholelithiasis on right upper quadrant ultrasound - Constitutional Vitals: Temp Pulse Resp BP Pulse Ox 97.9 F 73 17 127/73 94 08/16/17 15:37 08/16/17 15:37 08/16/17 15:37 08/16/17 15:37 08/16/17 15:37 General appearance: Present: cooperative, A&O X 3, no acute distress, answers questions appropriately - Respiratory Respiratory exam: Present: CTAB. Absent: accessory muscle use, rales, rhonchi, wheezes - Cardiovascular Cardiovascular exam: Present: RRR, +S1, +S2. Absent: diastolic murmur, gallop, rubs, systolic murmur - GI/Abdominal GI/Abdominal exam: Present: normal bowel sounds, soft, no peritoneal signs. Absent: distended, tenderness Internal Medicine: Result - Labs CBC & Chem 7: 08/16/17 08:36 08/16/17 08:36 Labs: Short CBC 08/16/17 Range/Units 08:36 WBC 4.7 (4.3-11.1) K/mcL Hgb 12.0 (11.5-15.4) g/dL Hct 36.0 (35.3-44.9) % Plt Count 204 (140-400) K/mcL Neutrophils # 2.7 (1.6-8.9) K/mcL BMP 08/16/17 08:36 Sodium 142 Potassium 3.8 Chloride 109 H Carbon Dioxide 27 BUN 7 L Creatinine 0.65 Glucose 92 Calcium 9.2 - ABG Interpretation ABG results: PT/INR, D-dimer PT 11.1 Seconds (9.4-12.1) 08/11/17 05:16 - VTE Documentation of Mechanical Device: Intermittent pneumatic compression device Consult Discharge Plan - Plan Referrals: Levi Wooten MD [Primary Care Provider] -
[2017-08-17] MEDS: cefTRIAXone 1,000 MG in Water for inj. (sterile) 20 ML 10 ML IVPB SCH (00:32)
[2017-08-17] MEDS: Ringers Solution, Lactated 1,000 ML IVC SCH ×2 (00:32→12:17)
[2017-08-17 09:14] LABS: Basophils % 0.5 %; Eosinophils # 0.2 K/mcL (0.0-0.6); Eosinophils % 4.9 %; Hematocrit 36.6 % (35.3-44.9); Hemoglobin 11.8 g/dL (11.5-15.4); Immature Granulocytes % 0.2 % (0-4); Lymphocytes % 23.6 %; Mean Corpuscular HGB Conc 32.2 g/dL (31.6-35.5); Mean Corpuscular Hemoglobin 31.6 pg (28.0-33.3); Mean Corpuscular Volume 97.9 fL (83.0-100.0); Mean Platelet Volume 10.3 fL (9.4-12.4); Monocytes # 0.4 K/mcL (0.0-1.3); Monocytes % 8.6 %; Neutrophils # 2.7 K/mcL (1.6-8.9); Platelet Count 197 K/mcL (140-400); Red Blood Count 3.74 M/mcL (3.82-4.97); Red Cell Distribution Width 12.6 % (11.5-14.5); Segmented Neutrophils % 62.2 %
[2017-08-17 09:36] LABS: BUN/Creatinine Ratio 8 (6-26); Blood Urea Nitrogen 6 mg/dL (8-23); Calcium 9.3 mg/dL (8.6-10.3); Carbon Dioxide 28 mEq/L (23-29); Chloride 107 mEq/L (98-107); Glucose 125 mg/dL (70-105); Osmolality,Calculated 291 (280-300); Potassium 3.8 mEq/L (3.5-5.1); Sodium 141 mEq/L (136-145); eGFR For African Americans > 60 (> 60); eGFR For Non-African Americans > 60 (> 60)
[2017-08-17] MEDS: BuPROPion SR (12 HR) 100 MG TABLET PO SCH ×2 (09:39→21:26)
--- NOTE | 2017-08-17 19:00 | Internal Med Progress Note ---
Date of Encounter: 08/17/17 Time of Encounter: 11:00 - Assessment and plan (1) Nausea & vomiting Current Visit: Yes Status: Acute Assessment and plan: Patient still not able to tolerate by mouth without nausea/vomiting GI consulted with recommendations for EGD which showed no abnormal findings CT of the abdomen did not show any bowel obstruction Plan for a gastric emptying study on 08/18/17 Nutrition consulted for consideration for TPN May have to consult surgery for cholelithiasis as a possible reason for her nausea and vomiting Qualifiers: Vomiting type: cyclical vomiting Vomiting Intractability: intractable Qualified Code(s): G43.A1 - Cyclical vomiting, intractable (2) Cholelithiases Current Visit: Yes Status: Acute Assessment and plan: Right upper quadrant ultrasound showed cholelithiasis May have to consult surgery after GI workup completed; GI following Qualifiers: Qualified Code(s): K80.20 - Calculus of gallbladder without cholecystitis without obstruction (3) Ureteral stone Current Visit: Yes Status: Acute Assessment and plan: Distal ureteral stone with mild hydroureteronephrosis. Us/p Left ureteroscopic laser lithotripsy of stone with left ureteral stent placement String was left for easy removal in 2-3 days. (4) Hydroureteronephrosis Current Visit: Yes Status: Acute Assessment and plan: secondary to uretal stone. Renal function normal. (5) Essential hypertension Current Visit: Yes Status: Chronic Assessment and plan: per hx. BP controlled. Cont home BP medications. Monitor BP and titrate PRN (6) DVT prophylaxis Current Visit: No Status: Acute Assessment and plan: SCD - Time Spent With Patient Total time spent is greater than 50% in coordination of care (as documented) at patient's floor/unit and/or counseling patient: - Subjective Interval history: Patient still not able to tolerate by mouth without nausea/vomiting Will plan for a gastric emptying study scheduled for 08/18/17 Nutrition has also been consulted for consideration of TPN She was found to have cholelithiasis on right upper quadrant ultrasound but without any abdominal pain - Constitutional Vitals: Temp Pulse Resp BP Pulse Ox 98.4 F 74 14 143/80 95 08/17/17 14:16 08/17/17 14:16 08/17/17 14:16 08/17/17 14:16 08/17/17 14:16 General appearance: Present: cooperative, A&O X 3, no acute distress, answers questions appropriately - Respiratory Respiratory exam: Present: CTAB. Absent: accessory muscle use, rales, rhonchi, wheezes - Cardiovascular Cardiovascular exam: Present: RRR, +S1, +S2. Absent: diastolic murmur, gallop, rubs, systolic murmur - GI/Abdominal GI/Abdominal exam: Present: normal bowel sounds, soft, no peritoneal signs. Absent: distended, tenderness Internal Medicine: Result - Labs CBC & Chem 7: 08/17/17 09:00 08/17/17 09:00 Labs: Short CBC 08/17/17 Range/Units 09:00 WBC 4.3 (4.3-11.1) K/mcL Hgb 11.8 (11.5-15.4) g/dL Hct 36.6 (35.3-44.9) % Plt Count 197 (140-400) K/mcL Neutrophils # 2.7 (1.6-8.9) K/mcL BMP 08/17/17 09:00 Sodium 141 Potassium 3.8 Chloride 107 Carbon Dioxide 28 BUN 6 L Creatinine 0.72 Glucose 125 H Calcium 9.3 - ABG Interpretation ABG results: PT/INR, D-dimer PT 11.1 Seconds (9.4-12.1) 08/11/17 05:16 - VTE Documentation of Mechanical Device: Intermittent pneumatic compression device Consult Discharge Plan - Plan Referrals: Levi Wooten MD [Primary Care Provider] -
[2017-08-18] MEDS: Ringers Solution, Lactated 1,000 ML IVC SCH ×2 (00:01→15:53)
--- NOTE | 2017-08-18 10:23 | Internal Med Progress Note ---
Date of Encounter: 08/18/17 Time of Encounter: 08:40 - Assessment and plan (1) Nausea & vomiting Current Visit: Yes Status: Acute Assessment and plan: Symptoms occur with eating. GI consulted -recommended EGD which showed no abnormal findings CT of the abdomen did not show any bowel obstruction. Ureteral stone was removed without improvement in pain. Abdominal US showing choleolithalisis with choleocystitis, patient notes occasional "twinge" of pain in RUQ, No leukocytosis, hepatic panel not completed previously but will order. Patient undergoing gastric emptying study today. Nutrition consulted for consideration for TPN Surgery consulted for evaluation and possible surgical intervention. Qualifiers: Vomiting type: cyclical vomiting Vomiting Intractability: intractable Qualified Code(s): G43.A1 - Cyclical vomiting, intractable (2) Cholelithiases Current Visit: Yes Status: Acute Assessment and plan: Right upper quadrant ultrasound showed cholelithiasis See complete plan as above. Qualifiers: Cholelithiasis location: gallbladder Cholecystitis presence: without cholecystitis Biliary obstruction: without biliary obstruction Qualified Code(s): K80.20 - Calculus of gallbladder without cholecystitis without obstruction (3) Ureteral stone Current Visit: Yes Status: Acute Assessment and plan: Distal ureteral stone with mild hydroureteronephrosis. Us/p Left ureteroscopic laser lithotripsy of stone with left ureteral stent placement String was left for easy removal in 2-3 days.---reviewed urology note stent was to be removed on the 10/15. Will touch base with nursing to ensure this was removed. (4) Hydroureteronephrosis Current Visit: Yes Status: Acute Assessment and plan: secondary to uretal stone. Renal function normal. (5) Essential hypertension Current Visit: Yes Status: Chronic Assessment and plan: SBP elevated at 140-150s. Cont home BP medications. Monitor BP and may need to titrate PRN (6) DVT prophylaxis Current Visit: No Status: Acute Assessment and plan: SCD - Time Spent With Patient Total time spent is greater than 50% in coordination of care (as documented) at patient's floor/unit and/or counseling patient: - Subjective Interval history: Patient seen and examined sitting up in bed, patient's present in room. She denies any acute pain or distress. Notes occasional "twinge" of RUQ discomfort. Continues to have nausea and vomiting with oral intake. Currently she is undergoing gastric emptying study. Denies chest pain, dyspnea, diarrhea. Admits chronic hx of constipation. - Constitutional Vitals: Temp Pulse Resp BP Pulse Ox 97.8 F 83 15 124/77 98 08/18/17 07:21 08/18/17 07:21 08/18/17 07:21 08/18/17 07:21 08/18/17 07:21 General appearance: Present: cooperative, A&O X 3, no acute distress, answers questions appropriately - Head Head exam: Present: atraumatic, normal inspection, normocephalic - Eye Eye exam: Present: EOMI, normal appearance, sclera anicteric - ENT ENT exam: Present: mucous membranes moist - Neck Neck exam general surgery: Present: full ROM, normal inspection - Respiratory Respiratory exam: Present: CTAB. Absent: respiratory distress, rhonchi, stridor , wheezes - Cardiovascular Cardiovascular exam: Present: RRR, +S1, +S2. Absent: gallop, rubs - GI/Abdominal GI/Abdominal exam: Present: normal bowel sounds, soft, tenderness (none to palpation). Absent: distended, firm, guarding, no peritoneal signs - Extremities Exam Extremities exam: Present: warm. Absent: pedal edema, tenderness - Neurological Exam Neurological exam: Present: alert, oriented X3, no focal deficits. Absent: speech deficit - Psychiatric Psychiatric exam: Present: normal affect, normal mood - Skin Skin exam: Present: dry, intact, normal color, warm Internal Medicine: Result - Labs CBC & Chem 7: 08/17/17 09:00 08/17/17 09:00 - ABG Interpretation ABG results: PT/INR, D-dimer PT 11.1 Seconds (9.4-12.1) 08/11/17 05:16 - Impressions Impressions Head CT 08/17/17 16:16 IMPRESSION: No acute intracranial abnormality. No change from the prior exam. D/ / Antolin Jain MD / Antolin Jain MD Interpreting Provider: Antolin Jain MD - VTE Documentation of Mechanical Device: Intermittent pneumatic compression device Consult Discharge Plan - Plan Referrals: Vidal Red MD [Partnered Physician] - Levi Wooten MD [Primary Care Provider] -
[2017-08-18] MEDS ORDERED: *HR* Promethazine 25 MG/ML VIAL IVP PRN (10:48)
[2017-08-18 11:53] LABS: Magnesium 1.9 mg/dL (1.6-2.6); Phosphorous 2.8 mg/dL (2.7-4.5)
[2017-08-18] MEDS: BuPROPion SR (12 HR) 100 MG TABLET PO SCH ×2 (12:18→21:16)
[2017-08-18 13:02] LABS: Albumin/Globulin Ratio 1.6 (1.1-2.2); Bilirubin,Direct 0.1 mg/dL (0.0-0.2); Bilirubin,Indirect 0.2 mg/dL (0.0-1.2); Bilirubin,Total 0.3 mg/dL (0.3-1.0); Globulin 2.5 g/dL (2.4-3.5); Total Protein 6.5 g/dL (6.4-8.9)
[2017-08-18 13:16] LABS: Folate > 22.3 ng/mL (3.0-16.0); Vitamin B12 > 1500 pg/mL (250-1100)
[2017-08-18] MEDS ORDERED: Metoclopramide 10 MG/2 ML VIAL IVP ONE (13:59)
[2017-08-18] MEDS ORDERED: Bisacodyl 10 MG RECTAL SUPPOSITORY RC ONE (14:02)
--- NOTE | 2017-08-18 15:38 | General Surgery Consult Note ---
Date of Encounter: 08/18/17 Time of Encounter: 13:40 Assessment and Plan (1) Cholelithiases Current Visit: Yes Status: Acute Pt with N/V with unknown cause. Reporting some mild right sided abdominal pain PLAN: NPO at midnight Symptom control IV fluids Cholecystectomy tomorrow - surgical consent signed and on the chart Qualifiers: Cholelithiasis location: gallbladder Cholecystitis presence: without cholecystitis Biliary obstruction: without biliary obstruction Qualified Code(s): K80.20 - Calculus of gallbladder without cholecystitis without obstruction History of Present Illness Consult date: 08/18/17 Reason for consult: gallstones Requesting physician: Husam Zhang History of present illness: This is a 67 year old female with PMH of HTN, depression, breast cancer, and hypothyroidism. She presented to [facility] with N/V one week ago. She reports N/V for 2 weeks now every time she tries to eat or drink anything. Emesis is non- bloody. She initially presented with left flank and groin pain. She was found to have a ureteral stone on CT that was removed per urology. She was evaluated by GI with EGD that showed no abnormal findings. She had a RUQ ultrasound that showed cholelithasis with gallbladder wall thickening. Head CT showed no abnormality. Gastric emptying study was normal as well. Now she is reporting some right sided abdominal pain. She is still unable to tolerate PO intake. Reports constipation with no BM for one week. Denies fevers, chills, skin rashes , itching, chest pain, dyspnea, or dysuria. Past Med Surg Social Fam HX - Past Medical History Medical history: cancer, thyroid disease Additional medical history: breast cancer Psychiatric history: anxiety, depression - Past Surgical History Surgical History: appendectomy, breast surgery, herniorrhaphy, hysterectomy, other Additional surgical history: kidney stones, tubal ligation, bowel surgery, left mastectomy, hernia repair - Social History Smoking Status: Never smoker Smokeless Tobacco Status: No Alcohol use: none Drug use: none - Family History Mother Living Status: Hx Family Cancer: Yes (Ovarian) Hx Family Endocrine Disorder: Yes (DM) Father Living Status: Hx Family Cancer: Yes (Prostate and colon) Medications and Allergies Esomeprazole Magnesium [Nexium] 40 mg PO DAILY 10/17/14 [History] Multivit-Min/FA/Lycopen/Lutein [Centrum Silver Tablet] 1 tab PO DAILY 10/17/14 [ History] Escitalopram [Lexapro] 20 mg PO DAILY 07/10/15 [History] BuPROPion SR (12 HR) [Wellbutrin SR] 100 mg PO BID 01/07/16 [History] Gluc HCl/Csa/Collagen/Hyalur A [Glucosamine Chondroitin Cap] 1 each PO BID 05/05 [History] hydroCHLOROthiazide [Hydrochlorothiazide] 25 mg PO DAILY 05/05/16 [History] Zolpidem [Ambien] 5 mg PO HS 05/09/16 [History] Nortriptyline HCl 10 mg PO HS 03/26/17 [History] Cholestyramine 4 gm PO BID #60 powd.pack 08/06/17 [Rx] Docusate Sodium [Colace] 1 cap PO BID #60 capsule 08/06/17 [Rx] Ondansetron ODT [Zofran ODT] 4 mg SL Q6HR PRN #15 tab.rapdis 08/10/17 [Rx] Cholecalciferol (D-3) [Vitamin D] 1,000 unit PO DAILY 08/11/17 [History] Levothyroxine Sodium [Levoxyl] 88 mcg PO DAILY 08/11/17 [History] 3 Allergy/AdvReac Type Severity Reaction Status Date / Time Iodinated Contrast- Oral and AdvReac Hives Verified 08/10/17 19:19 IV Dye [Iodinated Contrast Media - Oral and] Review of Systems All systems PM: reviewed and no additional remarkable complaints except as stated All systems PM: The remainder of the systems were reviewed and are negative General Surgery Exam Initial Vital Signs Temp Pulse Resp BP Pulse Ox 98.1 F 83 14 145/76 96 08/10/17 15:51 08/10/17 15:51 08/10/17 15:51 08/10/17 15:51 08/10/17 15:51 - General physical appearance well developed, well nourished, no distress - Eyes normal ocular movement. negative: icteric - Respiratory normal expansion, normal respiratory effort, clear to auscultation - Cardiovascular Cardiovascular exam: Present: RRR, no murmurs/rubs/gallops - Abdomen Abdomen general surgery: Present: bowel sounds present, soft, tender (LLQ and periumbilical. Negative Delgado's), surgical scars (LLQ, midline). Absent: guarding, rebound, rigid - Integumentary Integumentary general surgery: Present: warm and dry, no abnormal pigmentation - Neurologic Present: CN 2-12 grossly intact, normal coordination - Psychiatric Psychiatric general surgery: Present: A&Ox3, appropriate, speech is normal, memory intact Exam Initial Vital Signs Temp Pulse Resp BP Pulse Ox 98.1 F 83 14 145/76 96 08/10/17 15:51 08/10/17 15:51 08/10/17 15:51 08/10/17 15:51 08/10/17 15:51 Results - Labs 08/17/17 09:00 08/17/17 09:00 Abnormal lab results RBC 3.74 M/mcL (3.82-4.97) L 08/17/17 09:00 Nucleated RBCs/100 WBC 0.7 /100 WBC (0) H 08/11/17 05:16 BUN 6 mg/dL (8-23) L 08/17/17 09:00 Glucose 125 mg/dL (70-105) H 08/17/17 09:00 Alkaline Phosphatase 107 Units/L (34-104) H 08/18/17 10:57 Vitamin B12 > 1500 pg/mL (250-1100) H 08/18/17 10:57 Folate > 22.3 ng/mL (3.0-16.0) H 08/18/17 10:57 TSH 0.221 mcIU/mL (0.340-5.600) L 08/18/17 10:57 Urine Clarity Cloudy (Clear) A 08/10/17 19:43 Urine Blood Trace (Negative) H 08/10/17 19:43 Ur Leukocyte Esterase Moderate (Negative) H 08/10/17 19:43 Urine Microscopic RBC 5-15 per hpf (0-3) H 08/10/17 19:43 Urine Microscopic WBC 15-30 per hpf (0-3) H 08/10/17 19:43 Ur Squamous Epith Cells Many per lpf (None-Few) H 08/10/17 19:43 Ur Culture Indicated? NO. (NO) A 08/10/17 19:43 Diabetes panel 08/18/17 Range/Units 10:57 AST 18 (13-39) Units/L ALT 12 (7-52) Units/L Alkaline Phosphatase 107 H (34-104) Units/L Albumin 4.0 (3.5-5.7) g/dL Thyroid panel 08/18/17 Range/Units 10:57 TSH 0.221 L (0.340-5.600) mcIU/mL Calcium panel 08/18/17 Range/Units 10:57 Phosphorus 2.8 (2.7-4.5) mg/dL Albumin 4.0 (3.5-5.7) g/dL Pituitary panel 08/18/17 Range/Units 10:57 TSH 0.221 L (0.340-5.600) mcIU/mL Adrenal panel 08/18/17 Range/Units 10:57 Total Bilirubin 0.3 (0.3-1.0) mg/dL AST 18 (13-39) Units/L ALT 12 (7-52) Units/L Alkaline Phosphatase 107 H (34-104) Units/L Albumin 4.0 (3.5-5.7) g/dL All other labs normal. Consult Discharge Plan - Plan Referrals: Vidal Red MD [Partnered Physician] - Levi Wooten MD [Primary Care Provider] -
[2017-08-19 04:37] LABS: Basophils % 0.4 %; Eosinophils # 0.3 K/mcL (0.0-0.6); Eosinophils % 5.9 %; Hematocrit 35.8 % (35.3-44.9); Hemoglobin 11.6 g/dL (11.5-15.4); Immature Granulocytes % 0.2 % (0-4); Lymphocytes # 1.2 K/mcL (0.6-4.6); Lymphocytes % 23.4 %; Mean Corpuscular HGB Conc 32.4 g/dL (31.6-35.5); Mean Corpuscular Hemoglobin 31.1 pg (28.0-33.3); Mean Platelet Volume 10.6 fL (9.4-12.4); Monocytes # 0.6 K/mcL (0.0-1.3); Neutrophils # 3.1 K/mcL (1.6-8.9); Platelet Count 199 K/mcL (140-400); Red Blood Count 3.73 M/mcL (3.82-4.97); Red Cell Distribution Width 12.8 % (11.5-14.5); Segmented Neutrophils % 59.1 %
[2017-08-19 04:41] LABS: INR 1.1; Prothrombin Time 11.6 Seconds (9.4-12.1)
[2017-08-19 04:49] LABS: BUN/Creatinine Ratio 16 (6-26); Blood Urea Nitrogen 11 mg/dL (8-23); Calcium 9.3 mg/dL (8.6-10.3); Carbon Dioxide 25 mEq/L (23-29); Chloride 108 mEq/L (98-107); Glucose 80 mg/dL (70-105); Osmolality,Calculated 290 (280-300); Potassium 3.4 mEq/L (3.5-5.1); Sodium 141 mEq/L (136-145); eGFR For African Americans > 60 (> 60); eGFR For Non-African Americans > 60 (> 60)
[2017-08-19] MEDS: BuPROPion SR (12 HR) 100 MG TABLET PO SCH ×2 (07:42→22:05)
--- NOTE | 2017-08-19 09:01 | Internal Med Progress Note ---
<Clara Teresa - Last Filed: 08/19/17 09:28> Date of Encounter: 08/19/17 Time of Encounter: 08:58 - Assessment and plan (1) Intractable nausea and vomiting Current Visit: Yes Status: Acute Assessment and plan: Symptoms occur with eating. GI consulted -recommended EGD which showed no abnormal findings CT of the abdomen did not show any bowel obstruction. Ureteral stone was removed without improvement in pain. Abdominal US showing choleolithalisis with choleocystitis, patient notes occasional "twinge" of pain in RUQ, No leukocytosis, hepatic panel WNL Surgery consulted for evaluation plan to perform cholecystectomy today Qualifiers: Vomiting type: unspecified Qualified Code(s): R11.2 - Nausea with vomiting , unspecified (2) Hydroureteronephrosis Current Visit: Yes Status: Acute Assessment and plan: secondary to uretal stone. Renal function normal. (3) Essential hypertension Current Visit: Yes Status: Chronic Assessment and plan: Cont home BP medications. (4) Cholelithiases Current Visit: Yes Status: Acute Assessment and plan: Right upper quadrant ultrasound showed cholelithiasis Qualifiers: Cholelithiasis location: gallbladder Cholecystitis presence: without cholecystitis Biliary obstruction: without biliary obstruction Qualified Code(s): K80.20 - Calculus of gallbladder without cholecystitis without obstruction (5) Ureteral stone Current Visit: Yes Status: Acute Assessment and plan: Distal ureteral stone with mild hydroureteronephrosis. s/p Left ureteroscopic laser lithotripsy of stone with left ureteral stent placement (6) DVT prophylaxis Current Visit: Yes Status: Acute Assessment and plan: SCD - Time Spent With Patient Total time spent is greater than 50% in coordination of care (as documented) at patient's floor/unit and/or counseling patient: - Subjective Interval history: Patient states she is feeling good this morning. Mild abdominal tenderness. No nausea or vomiting. This is due to her being nothing by mouth since midnight. She states her symptoms only occur when she eats or drinks. Plan for cholecystectomy this morning. - Constitutional Vitals: Temp Pulse Resp BP Pulse Ox 97.7 F 79 16 117/70 98 08/19/17 07:25 08/19/17 07:25 08/19/17 07:25 08/19/17 07:25 08/19/17 07:25 General appearance: Present: cooperative, A&O X 3, no acute distress, answers questions appropriately - Head Head exam: Present: atraumatic, normocephalic - Respiratory Respiratory exam: Present: CTAB. Absent: accessory muscle use, rales, rhonchi, wheezes - Cardiovascular Cardiovascular exam: Present: RRR, +S1, +S2. Absent: diastolic murmur, gallop, rubs, systolic murmur - GI/Abdominal GI/Abdominal exam: Present: tenderness (mild diffuse tenderness with deep palpation), no peritoneal signs. Absent: distended, guarding, rebound, rigid - Neurological Exam Neurological exam: Present: alert, oriented X3, no focal deficits Internal Medicine: Result - Labs CBC & Chem 7: 08/19/17 04:14 08/19/17 04:14 Labs: Short CBC 08/19/17 Range/Units 04:14 WBC 5.3 (4.3-11.1) K/mcL Hgb 11.6 (11.5-15.4) g/dL Hct 35.8 (35.3-44.9) % Plt Count 199 (140-400) K/mcL Neutrophils # 3.1 (1.6-8.9) K/mcL BMP 08/19/17 04:14 Sodium 141 Potassium 3.4 L Chloride 108 H Carbon Dioxide 25 BUN 11 Creatinine 0.67 Glucose 80 Calcium 9.3 Liver Function 08/18/17 Range/Units 10:57 Total Bilirubin 0.3 (0.3-1.0) mg/dL Direct Bilirubin 0.1 (0.0-0.2) mg/dL AST 18 (13-39) Units/L ALT 12 (7-52) Units/L Alkaline Phosphatase 107 H (34-104) Units/L Albumin 4.0 (3.5-5.7) g/dL - ABG Interpretation ABG results: PT/INR, D-dimer PT 11.6 Seconds (9.4-12.1) 08/19/17 04:14 - Impressions Impressions Gastric Emptying Nuclear Medicine 08/18/17 07:00 IMPRESSION: Normal gastric emptying of liquids. D/ 08/18/2017 11:17:09 Yana Guaman MD / [facility] Interpreting Provider: Yana Guaman MD - VTE Documentation of Mechanical Device: Intermittent pneumatic compression device Consult Discharge Plan - Plan Referrals: Vidal Red MD [Partnered Physician] - Levi Wooten MD [Primary Care Provider] - <Tenzin Malone - Last Filed: 08/19/17 14:36> Date of Encounter: 08/19/17 - Assessment and plan (1) Nausea & vomiting Current Visit: Yes Status: Acute Qualifiers: Vomiting type: cyclical vomiting Vomiting Intractability: intractable Qualified Code(s): G43.A1 - Cyclical vomiting, intractable (2) DVT prophylaxis Current Visit: Yes Status: Acute (3) Ureteral stone Current Visit: Yes Status: Acute (4) Hydroureteronephrosis Current Visit: Yes Status: Acute (5) Essential hypertension Current Visit: Yes Status: Chronic (6) Cholelithiases Current Visit: Yes Status: Acute Qualifiers: Cholelithiasis location: gallbladder Cholecystitis presence: without cholecystitis Biliary obstruction: without biliary obstruction Qualified Code(s): K80.20 - Calculus of gallbladder without cholecystitis without obstruction - Time Spent With Patient Total time spent is greater than 50% in coordination of care (as documented) at patient's floor/unit and/or counseling patient: - Constitutional Vitals: Temp Pulse Resp BP Pulse Ox 98 F 66 16 122/65 97 08/19/17 11:36 08/19/17 11:36 08/19/17 11:36 08/19/17 11:36 08/19/17 11:36 Internal Medicine: Result - Labs CBC & Chem 7: 08/19/17 04:14 08/19/17 04:14 Labs: Short CBC 08/19/17 Range/Units 04:14 WBC 5.3 (4.3-11.1) K/mcL Hgb 11.6 (11.5-15.4) g/dL Hct 35.8 (35.3-44.9) % Plt Count 199 (140-400) K/mcL Neutrophils # 3.1 (1.6-8.9) K/mcL BMP 08/19/17 04:14 Sodium 141 Potassium 3.4 L Chloride 108 H Carbon Dioxide 25 BUN 11 Creatinine 0.67 Glucose 80 Calcium 9.3 - ABG Interpretation ABG results: PT/INR, D-dimer PT 11.6 Seconds (9.4-12.1) 08/19/17 04:14 - Impressions Impressions Gastric Emptying Nuclear Medicine 08/18/17 07:00 IMPRESSION: Normal gastric emptying of liquids. D/ 08/18/2017 11:17:09 Yana Guaman MD / [facility] Interpreting Provider: Yana Guaman MD - Attending Attestation I examined this patient and my medical decision-making was reviewed with the Resident Physician Dr. Teresa. I agree with the documented findings, disposition and treatment plan as described except to the extent set forth below. Ms. Mcintosh is a 67 y/o F admitted here for intractable nausea / vomiting. She also happened to have ureteral calculi for which she did go for Left ureteroscopic laser lithotripsy of stone with left ureteral stent placement. However pt was still c/o intarctable nausea and vomiting with food intake. Her RUQ US showed cholelithiasis and concerning for cholecystitis. She denied any CP. Gen: A, A,O x3 Abd: Soft, RUQ Tenderness + a/p 1. Intractable N/V 2. Cholecystitis with cholelithiasis Surgery consulted scheduled for surgery later today Dr. Payal SEGUNDO IV hydration Talked to the family at bed side and explained to them about current care.
--- NOTE | 2017-08-19 14:41 | Anesthesia Evaluation PreOp ---
Date of Encounter: 08/19/17 Time of Encounter: 14:39 - Past History Planned Operation: Robotic Lap. Sherie. Cardiac History: Denies any Significant Hx Pulmonary History: Denies Any Significant HX ENTERPRISE SERVICES MANAGER History: Denies Any Significant HX, Other (Depression) Other Medical History: Renal (Stones), Thyroid (Hypo), GERD, Other (Breast CA) Anesthesia History: No Prior Anesthetic Complications, Past Anesthesia (EGD, appendectomy, breast surgery, herniorrhaphy, hysterectomy, kidney stones, tubal ligation, bowel surgery, left mastectomy,) : No (SHAR) Alcohol Use: none Drug use: none Medications and Allergies Esomeprazole Magnesium [Nexium] 40 mg PO DAILY 10/17/14 [History] Multivit-Min/FA/Lycopen/Lutein [Centrum Silver Tablet] 1 tab PO DAILY 10/17/14 [ History] Escitalopram [Lexapro] 20 mg PO DAILY 07/10/15 [History] BuPROPion SR (12 HR) [Wellbutrin SR] 100 mg PO BID 01/07/16 [History] Gluc HCl/Csa/Collagen/Hyalur A [Glucosamine Chondroitin Cap] 1 each PO BID 05/05 [History] hydroCHLOROthiazide [Hydrochlorothiazide] 25 mg PO DAILY 05/05/16 [History] Zolpidem [Ambien] 5 mg PO HS 05/09/16 [History] Nortriptyline HCl 10 mg PO HS 03/26/17 [History] Cholestyramine 4 gm PO BID #60 powd.pack 08/06/17 [Rx] Docusate Sodium [Colace] 1 cap PO BID #60 capsule 08/06/17 [Rx] Ondansetron ODT [Zofran ODT] 4 mg SL Q6HR PRN #15 tab.rapdis 08/10/17 [Rx] Cholecalciferol (D-3) [Vitamin D] 1,000 unit PO DAILY 08/11/17 [History] Levothyroxine Sodium [Levoxyl] 88 mcg PO DAILY 08/11/17 [History] 3 Allergy/AdvReac Type Severity Reaction Status Date / Time Iodinated Contrast- Oral and AdvReac Hives Verified 08/10/17 19:19 IV Dye [Iodinated Contrast Media - Oral and] - Meds/Allergy Pre-op Review Medications Reviewed: Yes Allergies Reviewed: Yes Beta Blockers on Current Med List: No Anesthesia Results - Labs 08/19/17 04:14 08/19/17 04:14 - Imaging EKG: report reviewed (SR) Anesthesia Exam O2 Sat O2 Sat by Pulse Oximetry 97 O2 Sat by Pulse Oximetry 98 O2 Sat by Pulse Oximetry 93 Vital Signs Temp Pulse Resp BP Pulse Ox 98.1 F 83 14 145/76 96 08/10/17 15:51 08/10/17 15:51 08/10/17 15:51 08/10/17 15:51 08/10/17 15:51 NPO (# of Hours): > 8 hrs Pain Scale: 0 Pain Scale Used: Numeric (1 - 10) - HEENT Pupil (Motor): Pupils equal, EOMI Mallampati: I Teeth: Normal Oral Opening: Greater than 3 - ENTERPRISE SERVICES MANAGER LOC: Oriented ENTER[employer]ISE SERVICES MANAGER Motor: Normal RUE, Normal LUE, Normal RLE, Normal LLE, Normal Face ENTER[employer]ISE SERVICES MANAGER Sensory: Normal: RUE, LUE, RLE, LLE, Face - Cardiac Rhythm: Regular Murmur: None JVD: No Carotid Bruit: No - Pulmonary Breath Sounds: bilateral Clear Respiratory Effort: Symmetrical Anesthesia Assess/Plan ASA Score: 3 Modified Kaycee Scale for Level of Consciousness: Cooperative, oriented, and tranquil Anesthetic Plan: General Autologous Blood: Yes Monitoring Plan: Standard Monitors Recovery Plan: PACU
[2017-08-19] MEDS: 0.9 % Sodium Chloride 1,000 ML IVC SCH ×2 (15:26→22:49)
[2017-08-19] MEDS ORDERED: *HR* Propofol 200 MG/20 ML VIAL IVP ONE (16:35)
[2017-08-19] MEDS ORDERED: *HR* Rocuronium Bromide 50 MG/5 ML VIAL ONE (16:35)
[2017-08-19] MEDS ORDERED: Acetaminophen IV 1,000 MG/100 ML INFUS..BTL ONE (16:35)
[2017-08-19] MEDS ORDERED: Lidocaine -MPF 2% 2 ML VIAL ONE (16:35)
[2017-08-19] MEDS ORDERED: *HR* FentaNYL (PF) 100 MCG/2 ML VIAL ONE (16:35)
[2017-08-19] MEDS ORDERED: CefOXitin 2,000 MG VIAL ONE (16:41)
[2017-08-19] MEDS ORDERED: Ondansetron 4 MG/2 ML VIAL ONE (16:58)
[2017-08-19] MEDS ORDERED: Dexamethasone 4 MG/ML VIAL ONE (16:58)
[2017-08-19] MEDS ORDERED: *HR* PHENYLEPHRINE 1,000 MCG/10 ML SYRINGE IVP ONE (17:00)
[2017-08-19] MEDS ORDERED: Neostigmine Methylsulfate 3 MG/3 ML SYRINGE ONE (17:11)
[2017-08-19] MEDS ORDERED: Ketorolac 30 MG/ML VIAL ONE (17:11)
[2017-08-19] MEDS ORDERED: *HR* HYDROmorphone (PF) 1 MG/ML SYRINGE IVP PRN (17:13)
[2017-08-19] MEDS ORDERED: *HR* OxyCODONE Immed Rel 5 MG TABLET PO PRN (17:13)
[2017-08-19] MEDS ORDERED: *HR* Labetalol 100 MG/20 ML MDV IVP PRN (17:13)
[2017-08-19] MEDS ORDERED: *HR* Promethazine 25 MG/ML VIAL IVP PRN (17:13)
--- NOTE | 2017-08-19 18:45 | Anesthesia Evaluation Post Op ---
Date of Encounter: 08/19/17 Time of Encounter: 18:45 - Vital Signs Vital Signs: Vital Signs/O2 Sat, Most Current Temp Pulse Resp BP Pulse Ox 98.3 F 84 16 123/52 99 08/19/17 18:09 08/19/17 18:29 08/19/17 18:29 08/19/17 18:29 08/19/17 18:19 - Lungs Lungs: Clear Ascult./Percussion - Airway Airway: Non-obstructed - Cardiovascular Regular Rate - Mental Status Mental Status: Alert & Oriented, Answers Appropriately - Pain Pain Scale: 3 Pain Scale used: Numeric (1 - 10) - Nausea Vomiting Nausea Vomiting: Not Present - Hydration Hydration: NPO, Has not voided - Discharge PostOp Status: Transfer Patient to floor
[2017-08-19] MEDS: *HR* OxyCODONE Immed Rel 5 MG TABLET PO PRN (23:10)
[2017-08-20] MEDS: Ondansetron 4 MG/2 ML VIAL IVP PRN ×2 (04:14→11:53)
[2017-08-20] MEDS: 0.9 % Sodium Chloride 1,000 ML IVC SCH (05:31)
[2017-08-20 06:59] LABS: Basophils % 0.1 %; Eosinophils % 0.4 %; Hematocrit 36.3 % (35.3-44.9); Hemoglobin 11.4 g/dL (11.5-15.4); Immature Granulocytes % 0.6 % (0-4); Lymphocytes # 0.6 K/mcL (0.6-4.6); Mean Corpuscular HGB Conc 31.4 g/dL (31.6-35.5); Mean Corpuscular Hemoglobin 31.4 pg (28.0-33.3); Mean Platelet Volume 10.9 fL (9.4-12.4); Monocytes # 0.5 K/mcL (0.0-1.3); Monocytes % 5.2 %; Neutrophils # 7.8 K/mcL (1.6-8.9); Platelet Count 197 K/mcL (140-400); Red Blood Count 3.63 M/mcL (3.82-4.97); Red Cell Distribution Width 12.9 % (11.5-14.5); Segmented Neutrophils % 86.7 %
[2017-08-20 07:24] LABS: Alanine Aminotransferase 19 Units/L (7-52); Albumin 3.8 g/dL (3.5-5.7); Albumin/Globulin Ratio 1.7 (1.1-2.2); Alkaline Phosphatase 105 Units/L (34-104); Aspartate Amino Transferase 32 Units/L (13-39); BUN/Creatinine Ratio 26 (6-26); Bilirubin,Total 0.4 mg/dL (0.3-1.0); Blood Urea Nitrogen 20 mg/dL (8-23); Calcium 8.9 mg/dL (8.6-10.3); Carbon Dioxide 16 mEq/L (23-29); Chloride 110 mEq/L (98-107); Globulin 2.2 g/dL (2.4-3.5); Glucose 83 mg/dL (70-105); Osmolality,Calculated 294 (280-300); Potassium 4.4 mEq/L (3.5-5.1); Sodium 141 mEq/L (136-145); eGFR For African Americans > 60 (> 60); eGFR For Non-African Americans > 60 (> 60)
--- NOTE | 2017-08-20 08:34 | Internal Med Progress Note ---
<Clara Teresa - Last Filed: 08/20/17 08:32> Date of Encounter: 08/20/17 Time of Encounter: 08:32 - Assessment and plan (1) Intractable nausea and vomiting Current Visit: Yes Status: Acute Assessment and plan: Symptoms occur with eating. GI consulted -recommended EGD which showed no abnormal findings CT of the abdomen did not show any bowel obstruction. Ureteral stone was removed without improvement in pain. Abdominal US showing choleolithalisis with choleocystitis, patient notes occasional "twinge" of pain in RUQ, No leukocytosis, hepatic panel WNL Cholecystectomy yesterday. Defer diet advancement to surgical team Qualifiers: Vomiting type: unspecified Qualified Code(s): R11.2 - Nausea with vomiting , unspecified (2) Hydroureteronephrosis Current Visit: Yes Status: Acute Assessment and plan: secondary to uretal stone. Renal function normal. (3) Essential hypertension Current Visit: Yes Status: Chronic Assessment and plan: Cont home BP medications. (4) Cholelithiases Current Visit: Yes Status: Acute Assessment and plan: Right upper quadrant ultrasound showed cholelithiasis Cholecystectomy completed yesterday Qualifiers: Cholelithiasis location: gallbladder Cholecystitis presence: without cholecystitis Biliary obstruction: without biliary obstruction Qualified Code(s): K80.20 - Calculus of gallbladder without cholecystitis without obstruction (5) Ureteral stone Current Visit: Yes Status: Acute Assessment and plan: Distal ureteral stone with mild hydroureteronephrosis. s/p Left ureteroscopic laser lithotripsy of stone with left ureteral stent placement (6) DVT prophylaxis Current Visit: Yes Status: Acute Assessment and plan: SCD - Time Spent With Patient Total time spent is greater than 50% in coordination of care (as documented) at patient's floor/unit and/or counseling patient: - Subjective Interval history: Patient states she is feeling okay today. Having some mild abdominal tenderness. Patient has cholecystectomy yesterday. Has not had anything to eat or drink yet. Pain well under control. No bowel movement yet. - Constitutional Vitals: Temp Pulse Resp BP Pulse Ox 97.7 F 80 16 91/48 97 08/20/17 07:07 08/20/17 07:07 08/20/17 07:07 08/20/17 07:07 08/20/17 07:07 General appearance: Present: cooperative, A&O X 3, no acute distress, answers questions appropriately - Head Head exam: Present: atraumatic, normocephalic - Respiratory Respiratory exam: Present: CTAB. Absent: accessory muscle use, rales, rhonchi, wheezes - Cardiovascular Cardiovascular exam: Present: RRR, +S1, +S2. Absent: diastolic murmur, gallop, rubs, systolic murmur - GI/Abdominal GI/Abdominal exam: Present: soft, tenderness (Mild diffuse abdominal tenderness) , no peritoneal signs. Absent: distended Additional comments: 3 clean, dry areas of surgical incision closed with no seepage - Neurological Exam Neurological exam: Present: alert, oriented X3, no focal deficits Internal Medicine: Result - Labs CBC & Chem 7: 08/20/17 06:43 08/20/17 06:43 Labs: Short CBC 08/20/17 Range/Units 06:43 WBC 9.0 D (4.3-11.1) K/mcL Hgb 11.4 L (11.5-15.4) g/dL Hct 36.3 (35.3-44.9) % Plt Count 197 (140-400) K/mcL Neutrophils # 7.8 (1.6-8.9) K/mcL BMP 08/20/17 06:43 Sodium 141 Potassium 4.4 Chloride 110 H Carbon Dioxide 16 L BUN 20 Creatinine 0.77 Glucose 83 Calcium 8.9 Liver Function 08/20/17 Range/Units 06:43 Total Bilirubin 0.4 (0.3-1.0) mg/dL AST 32 (13-39) Units/L ALT 19 (7-52) Units/L Alkaline Phosphatase 105 H (34-104) Units/L Albumin 3.8 (3.5-5.7) g/dL - ABG Interpretation ABG results: PT/INR, D-dimer PT 11.6 Seconds (9.4-12.1) 08/19/17 04:14 - Impressions Impressions Gastric Emptying Nuclear Medicine 08/18/17 07:00 IMPRESSION: Normal gastric emptying of liquids. D/ / 08/18/2017 11:17:09 Yana Guaman MD / gilbert Interpreting Provider: Yana Guaman MD - VTE Documentation of Mechanical Device: Intermittent pneumatic compression device Consult Discharge Plan - Plan Referrals: Vidal Red MD [Partnered Physician] - Levi Wooten MD [Primary Care Provider] - <Tenzin Malone - Last Filed: 08/20/17 12:49> Date of Encounter: 08/20/17 - Assessment and plan (1) Nausea & vomiting Current Visit: Yes Status: Acute Qualifiers: Vomiting type: cyclical vomiting Vomiting Intractability: intractable Qualified Code(s): G43.A1 - Cyclical vomiting, intractable (2) DVT prophylaxis Current Visit: Yes Status: Acute (3) Ureteral stone Current Visit: Yes Status: Acute (4) Hydroureteronephrosis Current Visit: Yes Status: Acute (5) Essential hypertension Current Visit: Yes Status: Chronic (6) Cholelithiases Current Visit: Yes Status: Acute Qualifiers: Cholelithiasis location: gallbladder Cholecystitis presence: without cholecystitis Biliary obstruction: without biliary obstruction Qualified Code(s): K80.20 - Calculus of gallbladder without cholecystitis without obstruction - Time Spent With Patient Total time spent is greater than 50% in coordination of care (as documented) at patient's floor/unit and/or counseling patient: - Constitutional Vitals: Temp Pulse Resp BP Pulse Ox 97.9 F 91 16 104/63 97 08/20/17 10:58 08/20/17 10:58 08/20/17 10:58 08/20/17 10:58 08/20/17 10:58 Internal Medicine: Result - Labs CBC & Chem 7: 08/20/17 06:43 08/20/17 06:43 Labs: Short CBC 08/20/17 Range/Units 06:43 WBC 9.0 D (4.3-11.1) K/mcL Hgb 11.4 L (11.5-15.4) g/dL Hct 36.3 (35.3-44.9) % Plt Count 197 (140-400) K/mcL Neutrophils # 7.8 (1.6-8.9) K/mcL BMP 08/20/17 06:43 Sodium 141 Potassium 4.4 Chloride 110 H Carbon Dioxide 16 L BUN 20 Creatinine 0.77 Glucose 83 Calcium 8.9 Liver Function 06/14/18 Range/Units 06:43 Total Bilirubin 0.4 (0.3-1.0) mg/dL AST 32 (13-39) Units/L ALT 19 (7-52) Units/L Alkaline Phosphatase 105 H (34-104) Units/L Albumin 3.8 (3.5-5.7) g/dL - ABG Interpretation ABG results: PT/INR, D-dimer PT 11.6 Seconds (9.4-12.1) 08/19/17 04:14 - Attending Attestation I examined this patient and my medical decision-making was reviewed with the Resident Physician Dr. Teresa. I agree with the documented findings, disposition and treatment plan as described except to the extent set forth below. Ms. Mcintosh is a 67 y/o F admitted here for intractable nausea / vomiting. She also happened to have ureteral calculi for which she did go for Left ureteroscopic laser lithotripsy of stone with left ureteral stent placement. However pt was still c/o intarctable nausea and vomiting with food intake. Her RUQ US showed cholelithiasis and concerning for cholecystitis. Pt did go for cholecystectomy y/d. No events over night Gen: A, A,O x3 Abd: Soft,mild RUQ Tenderness + a/p 1. Intractable N/V 2. Cholecystitis with cholelithiasis 3. s/p cholecystectomy Started her on full liquid diet, will advance as she tolerates d/c IVF Possible d/c home in AM
[2017-08-20] MEDS: BuPROPion SR (12 HR) 100 MG TABLET PO SCH ×2 (09:55→20:16)
[2017-08-20] MEDS: *HR* OxyCODONE Immed Rel 5 MG TABLET PO PRN ×2 (11:54→22:29)
--- NOTE | 2017-08-20 13:10 | General Surgery Progress Note ---
Date of Encounter: 08/20/17 Time of Encounter: 13:00 - Assessment and Plan (1) Cholelithiases Current Visit: Yes Status: Acute Postoperative day #1 from a laparoscopic cholecystectomy with Dr. Payal Booker pending Advance diet as tolerated Supportive care and pain control Ambulate hallways 3 times a day with assistance Incentive spirometer every 1 hour while awake Qualifiers: Cholelithiasis location: gallbladder Cholecystitis presence: without cholecystitis Biliary obstruction: without biliary obstruction Qualified Code(s): K80.20 - Calculus of gallbladder without cholecystitis without obstruction (2) Intractable nausea and vomiting Current Visit: Yes Status: Acute Patient states that she feels that her nausea and vomiting has improved. She did have a small amount of emesis after breakfast this morning. She recommended that she was premedicated for lunch and she has been able to keep her lunch down so far. Supportive care Qualifiers: Vomiting type: unspecified Qualified Code(s): R11.2 - Nausea with vomiting , unspecified (3) Constipation Current Visit: Yes Status: Acute Colace 100 mg by mouth twice a day with first dose being given now MiraLAX 17 Gm by mouth daily, may hold for loose stools Qualifiers: Constipation type: unspecified constipation type Qualified Code(s): K59.00 - Constipation, unspecified (4) DVT prophylaxis Current Visit: Yes Status: Acute Heparin 5000 units subcutaneous twice daily for DVT prophylaxis Ambulate hallways 3 times a day with assistance Subjective Patient reports: no new complaints, feels better, still having pain (expected surgical discomfort), voiding w/o difficulty, flatus, no bowel movement, nausea , vomiting (small amount this morning after breakfast, tolerated lunch so far), afebrile Objective Vital Signs - Last 8 Hours Temp Pulse Resp BP Pulse Ox 08/20/17 10:58 97.9 F 91 16 104/63 97 08/20/17 08:45 97 08/20/17 07:07 97.7 F 80 16 91/48 97 08/20/17 05:17 97.8 F 78 14 92/48 97 Intake and Output 08/19/17 08/20/17 08/20/17 23:59 07:59 15:59 Intake Total 1000 / 1000 100 / 100 0 / 0 Output Total 2 / 2 125 / 125 500 / 500 Balance 998 / 998 -25 / -25 -500 / -500 Intake: IV Fluids 1000 / 1000 0.9 % Sodium Chloride 1,000 ML 1000 / 1000 @ 125 mls/hr IVC .Q8H [facility], [facility] Rx#: [id number] Oral 0 / 0 100 / 100 0 / 0 Output: Urine 0 / 0 125 / 125 400 / 400 Emesis 100 / 100 Estimated Blood Loss 2 / 2 Other: Meal npo Weight 66.4 kg Blood Glucose* 86 Patient Weight 08/20/17 23:59 Weight 66.4 kg - General physical appearance well developed, well nourished, no distress - Eyes normal ocular movement - ENT normal mucosa, atraumatic, normocephalic - Neck Neck exam: trachea midline - Respiratory normal respiratory effort, clear to auscultation - Cardiovascular Cardiovascular exam: Present: RRR - Abdomen Abdomen: Present: bowel sounds present, soft, distended (Mildly), tender ( Expected postoperative tenderness) - Incision Incision: Present: clean and dry, intact - Neurologic CN 2-12 grossly intact - Psychiatric oriented to time, oriented to person, oriented to place, speech is normal, memory intact - Labs 08/20/17 06:43 08/20/17 06:43 Diabetes panel 08/20/17 Range/Units 06:43 Sodium 141 (136-145) mEq/L Potassium 4.4 (3.5-5.1) mEq/L Chloride 110 H (98-107) mEq/L Carbon Dioxide 16 L (23-29) mEq/L BUN 20 (8-23) mg/dL Creatinine 0.77 (0.60-1.20) mg/dL Glucose 83 (70-105) mg/dL Calcium 8.9 (8.6-10.3) mg/dL AST 32 (13-39) Units/L ALT 19 (7-52) Units/L Alkaline Phosphatase 105 H (34-104) Units/L Albumin 3.8 (3.5-5.7) g/dL Calcium panel 08/20/17 Range/Units 06:43 Calcium 8.9 (8.6-10.3) mg/dL Albumin 3.8 (3.5-5.7) g/dL Pituitary panel 08/20/17 Range/Units 06:43 Sodium 141 (136-145) mEq/L Potassium 4.4 (3.5-5.1) mEq/L Chloride 110 H (98-107) mEq/L Carbon Dioxide 16 L (23-29) mEq/L BUN 20 (8-23) mg/dL Creatinine 0.77 (0.60-1.20) mg/dL Glucose 83 (70-105) mg/dL Calcium 8.9 (8.6-10.3) mg/dL Adrenal panel 08/20/17 Range/Units 06:43 Sodium 141 (136-145) mEq/L Potassium 4.4 (3.5-5.1) mEq/L Chloride 110 H (98-107) mEq/L Carbon Dioxide 16 L (23-29) mEq/L BUN 20 (8-23) mg/dL Creatinine 0.77 (0.60-1.20) mg/dL Glucose 83 (70-105) mg/dL Calcium 8.9 (8.6-10.3) mg/dL Total Bilirubin 0.4 (0.3-1.0) mg/dL AST 32 (13-39) Units/L ALT 19 (7-52) Units/L Alkaline Phosphatase 105 H (34-104) Units/L Albumin 3.8 (3.5-5.7) g/dL - VTE Documentation of Mechanical Device: Intermittent pneumatic compression device Consult Discharge Plan - Plan Referrals: Vidal Red MD [Partnered Physician] - Levi Wooten MD [Primary Care Provider] - - Attending Attestation For this encounter, I have reviewed the PRESS MANAGER or PA documentation, treatment plan, and medical decision making; and I have had face to face time with this patient.
--- NOTE | 2017-08-20 13:20 | Event Note ---
Date of Encounter: 08/20/17 Time of Encounter: 13:00 - Patient Status Disposition: Home, Self-Care Condition: Good Functional capacity at discharge: independent ambulation Overall status at discharge: patient is progressing back to baseline - Discharge Instructions Follow Up With: Vidal Red MD [Partnered Physician] - Levi Wooten MD [Primary Care Provider] - Irineo Moe DO [Partnered Physician] - 09/01/17 10:50 am (Surgery follow-up) Additional Instructions: #1 may shower, no tub bath for 2 weeks #2 wash incisions with soap and water and pat dry daily #3 no lifting, pushing, pulling more than 15 pounds for the next 2 weeks #4 no driving until off narcotics for 24 hours and able to safely react in the car #5 may climb stairs - Diet and Activity Activity: increase activity as tolerated Diet: advance to your usual diet
[2017-08-20] MEDS: *HR* Heparin 5,000 UNIT/ML VIAL SQ SCH (16:54)
[2017-08-21 04:41] LABS: Basophils % 0.3 %; Eosinophils # 0.3 K/mcL (0.0-0.6); Eosinophils % 4.1 %; Hematocrit 32.2 % (35.3-44.9); Hemoglobin 10.4 g/dL (11.5-15.4); Immature Granulocytes % 0.5 % (0-4); Lymphocytes # 1.7 K/mcL (0.6-4.6); Lymphocytes % 26.7 %; Mean Corpuscular HGB Conc 32.3 g/dL (31.6-35.5); Mean Corpuscular Hemoglobin 31.7 pg (28.0-33.3); Mean Corpuscular Volume 98.2 fL (83.0-100.0); Mean Platelet Volume 10.8 fL (9.4-12.4); Monocytes # 0.8 K/mcL (0.0-1.3); Monocytes % 12.4 %; Neutrophils # 3.5 K/mcL (1.6-8.9); Platelet Count 201 K/mcL (140-400); Red Blood Count 3.28 M/mcL (3.82-4.97); Red Cell Distribution Width 13.2 % (11.5-14.5)
[2017-08-21 05:01] LABS: Alanine Aminotransferase 16 Units/L (7-52); Albumin 3.3 g/dL (3.5-5.7); Albumin/Globulin Ratio 1.7 (1.1-2.2); Alkaline Phosphatase 89 Units/L (34-104); Aspartate Amino Transferase 19 Units/L (13-39); BUN/Creatinine Ratio 24 (6-26); Bilirubin,Total 0.3 mg/dL (0.3-1.0); Blood Urea Nitrogen 21 mg/dL (8-23); Calcium 9.5 mg/dL (8.6-10.3); Carbon Dioxide 24 mEq/L (23-29); Chloride 112 mEq/L (98-107); Globulin 1.9 g/dL (2.4-3.5); Glucose 122 mg/dL (70-105); Osmolality,Calculated 296 (280-300); Potassium 3.8 mEq/L (3.5-5.1); Sodium 141 mEq/L (136-145); Total Protein 5.2 g/dL (6.4-8.9); eGFR For African Americans > 60 (> 60); eGFR For Non-African Americans > 60 (> 60)
[2017-08-21] MEDS: *HR* OxyCODONE Immed Rel 5 MG TABLET PO PRN ×3 (06:25→22:34)
[2017-08-21] MEDS: *HR* Heparin 5,000 UNIT/ML VIAL SQ SCH ×2 (06:25→17:04)
[2017-08-21] MEDS: BuPROPion SR (12 HR) 100 MG TABLET PO SCH ×2 (09:13→21:11)
--- NOTE | 2017-08-21 12:04 | Operative Note ---
Date of procedure: 08/19/17 Pre-op diagnosis: nausea and vomiting Post-op diagnosis: same Procedure: Robotic Cholecystectomy with ICG cholangiogram Anesthesia: JEFFERYA Surgeon: Irineo Moe Was there an visitor use assistant present: No Sheet Metal Worker Maintenance: Beth Fisher Estimated blood loss (cc): 5 Specimen: GB Condition: stable Disposition: same day Procedure in Detail: After informed consent the patient was taken to the operating room. After adequate sedation anesthesia the abdomen was prepped and draped. A proper timeout was performed. Two towel clamps to place the umbilicus. A varies needle was placed at the umbilicus and a pneumo-peritoneum was created. A 12 mm incision was made at the umbilicus and a port was placed under direct visualization. A 5 mm incision was created in the left upper quadrant, followed by one in the right upper quadrant. There were 2 individual 5 mm cannulas then placed in the RUQ. An alligator clamp was then placed on the gallbladder was retracted anteriorly and cephalad. The infundibulum of the gallbladder was identified and the cystic duct was skeletonized. Once the structures were identified the cystic duct was clipped twice proximally and once distally. A cholangiogram was performed and found to have flow into the hepatic radicals and duodenum. Cystic duct was then transected. The gallbladder was then resected off the liver surface. The ICG was again utilized to identify any aberrant ductwork in the liver bed, and there was none noted. Once the gallbladder was fully resected from the liver surface, the liver was gently irrigated and suctioned dry. We ensured hemostasis prior to removing the gallbladder through the umbilical port. Pneumoperitoneum was then evacuated. The 12 mm cannula site was closed with a 0-Vicryl suture in figure- of-eight fashion. The port sites were injected with half percent Marcaine 30 mL. The skin was closed with 4-0 Vicryl suture and Dermabond. All instrument counts and needle counts were correct at the end of the case. The pt was taken to recovery in stable condition.
--- NOTE | 2017-08-21 15:58 | Internal Med Progress Note ---
<Clara Teresa - Last Filed: 08/21/17 15:56> Date of Encounter: 08/21/17 Time of Encounter: 15:57 - Assessment and plan (1) Intractable nausea and vomiting Current Visit: Yes Status: Acute Assessment and plan: Symptoms occur with eating. GI consulted -recommended EGD which showed no abnormal findings CT of the abdomen did not show any bowel obstruction. Ureteral stone was removed without improvement in pain. Abdominal US showing choleolithalisis with choleocystitis, patient notes occasional "twinge" of pain in RUQ, No leukocytosis, hepatic panel WNL Cholecystectomy completed. Patient's diet advanced to soft with multiple episodes of small emesis. Will add carafate to medications Qualifiers: Vomiting type: unspecified Qualified Code(s): R11.2 - Nausea with vomiting , unspecified (2) Hydroureteronephrosis Current Visit: Yes Status: Acute Assessment and plan: secondary to uretal stone. Renal function normal. (3) Essential hypertension Current Visit: Yes Status: Chronic Assessment and plan: Cont home BP medications. (4) Cholelithiases Current Visit: Yes Status: Acute Assessment and plan: Right upper quadrant ultrasound showed cholelithiasis Cholecystectomy completed as inpatient Qualifiers: Cholelithiasis location: gallbladder Cholecystitis presence: without cholecystitis Biliary obstruction: without biliary obstruction Qualified Code(s): K80.20 - Calculus of gallbladder without cholecystitis without obstruction (5) Ureteral stone Current Visit: Yes Status: Acute Assessment and plan: Distal ureteral stone with mild hydroureteronephrosis. s/p Left ureteroscopic laser lithotripsy of stone with left ureteral stent placement (6) DVT prophylaxis Current Visit: Yes Status: Acute Assessment and plan: SCD - Time Spent With Patient Total time spent is greater than 50% in coordination of care (as documented) at patient's floor/unit and/or counseling patient: - Subjective Interval history: Patient states she is having minimal abdominal tenderness. Was on clear liquid diet and had 2 small episodes of emesis. Patient denies any other concerns or complaints. - Constitutional Vitals: Temp Pulse Resp BP Pulse Ox 98.3 F 86 16 114/73 95 08/21/17 14:29 08/21/17 14:29 08/21/17 14:29 08/21/17 14:29 08/21/17 14:29 General appearance: Present: cooperative, A&O X 3, no acute distress, answers questions appropriately - Head Head exam: Present: atraumatic, normocephalic - Respiratory Respiratory exam: Present: CTAB. Absent: accessory muscle use, rales, rhonchi, wheezes - Cardiovascular Cardiovascular exam: Present: RRR, +S1, +S2. Absent: diastolic murmur, gallop, rubs, systolic murmur - GI/Abdominal Additional comments: mild abdominal tenderness to superficial and deep palpation, 3 well healing, closed and clean surgical sites - Neurological Exam Neurological exam: Present: alert, oriented X3, no focal deficits Internal Medicine: Result - Labs CBC & Chem 7: 08/21/17 03:57 08/21/17 03:57 Labs: Short CBC 08/21/17 Range/Units 03:57 WBC 6.3 (4.3-11.1) K/mcL Hgb 10.4 L (11.5-15.4) g/dL Hct 32.2 L (35.3-44.9) % Plt Count 201 (140-400) K/mcL Neutrophils # 3.5 (1.6-8.9) K/mcL BMP 08/21/17 03:57 Sodium 141 Potassium 3.8 Chloride 112 H Carbon Dioxide 24 BUN 21 Creatinine 0.86 Glucose 122 H Calcium 9.5 Liver Function 08/21/17 Range/Units 03:57 Total Bilirubin 0.3 (0.3-1.0) mg/dL AST 19 (13-39) Units/L ALT 16 (7-52) Units/L Alkaline Phosphatase 89 (34-104) Units/L Albumin 3.3 L (3.5-5.7) g/dL - ABG Interpretation ABG results: PT/INR, D-dimer PT 11.6 Seconds (9.4-12.1) 08/19/17 04:14 - VTE Documentation of Mechanical Device: Intermittent pneumatic compression device Consult Discharge Plan - Plan Additional Instructions: #1 may shower, no tub bath for 2 weeks #2 wash incisions with soap and water and pat dry daily #3 no lifting, pushing, pulling more than 15 pounds for the next 2 weeks #4 no driving until off narcotics for 24 hours and able to safely react in the car #5 may climb stairs Referrals: Vidal Red MD [Partnered Physician] - Irineo Moe DO [Partnered Physician] - 09/01/17 10:50 am (Surgery follow-up) Levi Wooten MD [Primary Care Provider] - Prescriptions: OxyCODONE/APAP 5/325 [Percocet 5/325 MG] 1 each PO Q6HR PRN 5 Days #20 tablet PRN Reason: Pain Docusate Sodium [Colace] 100 mg PO BID #30 capsule <Dulce Malonegenia - Last Filed: 08/21/17 16:54> Date of Encounter: 08/21/17 - Assessment and plan (1) Nausea & vomiting Current Visit: Yes Status: Acute Qualifiers: Vomiting type: cyclical vomiting Vomiting Intractability: intractable Qualified Code(s): G43.A1 - Cyclical vomiting, intractable (2) DVT prophylaxis Current Visit: Yes Status: Acute (3) Ureteral stone Current Visit: Yes Status: Acute (4) Hydroureteronephrosis Current Visit: Yes Status: Acute (5) Essential hypertension Current Visit: Yes Status: Chronic (6) Cholelithiases Current Visit: Yes Status: Acute Qualifiers: Cholelithiasis location: gallbladder Cholecystitis presence: without cholecystitis Biliary obstruction: without biliary obstruction Qualified Code(s): K80.20 - Calculus of gallbladder without cholecystitis without obstruction - Time Spent With Patient Total time spent is greater than 50% in coordination of care (as documented) at patient's floor/unit and/or counseling patient: - Constitutional Vitals: Temp Pulse Resp BP Pulse Ox 98.3 F 86 16 114/73 95 08/21/17 14:29 08/21/17 14:29 08/21/17 14:29 08/21/17 14:29 08/21/17 14:29 Internal Medicine: Result - Labs CBC & Chem 7: 08/21/17 03:57 08/21/17 03:57 Labs: Short CBC 08/21/17 Range/Units 03:57 WBC 6.3 (4.3-11.1) K/mcL Hgb 10.4 L (11.5-15.4) g/dL Hct 32.2 L (35.3-44.9) % Plt Count 201 (140-400) K/mcL Neutrophils # 3.5 (1.6-8.9) K/mcL BMP 08/21/17 03:57 Sodium 141 Potassium 3.8 Chloride 112 H Carbon Dioxide 24 BUN 21 Creatinine 0.86 Glucose 122 H Calcium 9.5 Liver Function 08/21/17 Range/Units 03:57 Total Bilirubin 0.3 (0.3-1.0) mg/dL AST 19 (13-39) Units/L ALT 16 (7-52) Units/L Alkaline Phosphatase 89 (34-104) Units/L Albumin 3.3 L (3.5-5.7) g/dL - ABG Interpretation ABG results: PT/INR, D-dimer PT 11.6 Seconds (9.4-12.1) 08/19/17 04:14 - Attending Attestation I examined this patient and my medical decision-making was reviewed with the Resident Physician Dr. Teresa. I agree with the documented findings, disposition and treatment plan as described except to the extent set forth below. Ms. Mcintosh is a 67 y/o F admitted here for intractable nausea / vomiting. She also happened to have ureteral calculi for which she did go for Left ureteroscopic laser lithotripsy of stone with left ureteral stent placement. However pt was still c/o intarctable nausea and vomiting with food intake. Her RUQ US showed cholelithiasis and concerning for cholecystitis. Pt did go for cholecystectomy on 08/19/17. No events over night Gen: A, A,O x3 Abd: Soft,mild RUQ Tenderness + a/p 1. Intractable N/V 2. Cholecystitis with cholelithiasis 3. s/p cholecystectomy Still has vomiting .. once this morning advance diet as she tolerates if pt continuous to have vomiting, will start her om Reglan instead of Zofran Possible d/c home in AM
[2017-08-21] MEDS: Sucralfate 1 GM TABLET PO SCH (17:04)
[2017-08-21] MEDS: Metoclopramide 10 MG/2 ML VIAL IVP SCH ×2 (17:38→22:34)
[2017-08-22] MEDS: *HR* Heparin 5,000 UNIT/ML VIAL SQ SCH ×2 (05:38→18:06)
[2017-08-22] MEDS: Metoclopramide 10 MG/2 ML VIAL IVP SCH ×3 (05:39→18:03)
[2017-08-22] MEDS: Sucralfate 1 GM TABLET PO SCH ×2 (07:48→16:48)
[2017-08-22] MEDS: BuPROPion SR (12 HR) 100 MG TABLET PO SCH ×2 (07:48→21:47)
[2017-08-22] MEDS ORDERED: Bisacodyl 10 MG RECTAL SUPPOSITORY RC PRN (09:43)
[2017-08-22] MEDS: Sennosides/Docusate Sodium TABLET PO SCH ×2 (11:37→21:47)
--- NOTE | 2017-08-22 12:03 | Internal Med Progress Note ---
<Vj Bryant - Last Filed: 08/22/17 12:01> Date of Encounter: 08/22/17 Time of Encounter: 12:01 - Assessment and plan (1) Nausea & vomiting Current Visit: Yes Status: Acute Assessment and plan: Likely secondary to acute cholecystitis. Patient had extensive workup including EGD and gastric emptying study which were unremarkable, gallbladder ultrasound was indicative of acute cholecystitis of patient underwent cholecystectomy. She is postop day 3 and feels like she is getting better. Continue scheduled Reglan and transition to oral options once the patient is tolerating more meals. She is tolerating liquids and some solids but not fully yet. Patient also has not had a bowel movement, currently on senna plus and MiraLAX and will receive Dulcolax suppository today. Qualifiers: Vomiting type: cyclical vomiting Vomiting Intractability: intractable Qualified Code(s): G43.A1 - Cyclical vomiting, intractable (2) Ureteral stone Current Visit: Yes Status: Acute Assessment and plan: Distal ureteral stone with mild hydroureteronephrosis. Us/p Left ureteroscopic laser lithotripsy of stone with left ureteral stent placement (3) Hydroureteronephrosis Current Visit: Yes Status: Acute Assessment and plan: secondary to uretal stone. Renal function normal. (4) Essential hypertension Current Visit: Yes Status: Chronic Assessment and plan: Blood pressure under good control. We will continue to monitor. (5) DVT prophylaxis Current Visit: Yes Status: Acute Assessment and plan: SCD (6) Cholelithiases Current Visit: Yes Status: Acute Assessment and plan: Right upper quadrant ultrasound showed cholelithiasis, postop day 3 cholecystectomy plan as above. Qualifiers: Cholelithiasis location: gallbladder Cholecystitis presence: without cholecystitis Biliary obstruction: without biliary obstruction Qualified Code(s): K80.20 - Calculus of gallbladder without cholecystitis without obstruction - Time Spent With Patient Total time spent is greater than 50% in coordination of care (as documented) at patient's floor/unit and/or counseling patient: - Subjective Interval history: Patient seen and examined at bedside. Patient states that she feels better this morning. She does still have nausea and had 1 episode of vomiting this morning that was mild and improved from previous episodes. Overall she feels like she is getting better. She denies bowel movement for the past 4 days. She has fever, chills, chest pain, shortness of breath. - Constitutional Vitals: Temp Pulse Resp BP Pulse Ox 98.7 F 93 14 109/73 96 08/22/17 10:40 08/22/17 10:40 08/22/17 10:40 08/22/17 10:40 08/22/17 10:40 General appearance: Present: cooperative, A&O X 3, no acute distress, answers questions appropriately - Respiratory Respiratory exam: Present: CTAB. Absent: rales, rhonchi, wheezes - Cardiovascular Cardiovascular exam: Present: RRR. Absent: gallop, rubs, systolic murmur - GI/Abdominal GI/Abdominal exam: Present: hypoactive bowel sounds, soft. Absent: distended, tenderness Additional comments: Surgical incisions are clean dry and intact. - Neurological Exam Neurological exam: Present: alert, CN II-XII intact, oriented X3, no focal deficits Internal Medicine: Result - Labs CBC & Chem 7: 08/21/17 03:57 08/21/17 03:57 - ABG Interpretation ABG results: PT/INR, D-dimer PT 11.6 Seconds (9.4-12.1) 08/19/17 04:14 - VTE Documentation of Mechanical Device: Intermittent pneumatic compression device Consult Discharge Plan - Plan Additional Instructions: #1 may shower, no tub bath for 2 weeks #2 wash incisions with soap and water and pat dry daily #3 no lifting, pushing, pulling more than 15 pounds for the next 2 weeks #4 no driving until off narcotics for 24 hours and able to safely react in the car #5 may climb stairs Referrals: Vidal Red MD [Partnered Physician] - Irineo Moe DO [Partnered Physician] - 09/01/17 10:50 am (Surgery follow-up) Levi Wooten MD [Primary Care Provider] - Prescriptions: OxyCODONE/APAP 5/325 [Percocet 5/325 MG] 1 each PO Q6HR PRN 5 Days #20 tablet PRN Reason: Pain Docusate Sodium [Colace] 100 mg PO BID #30 capsule <Tenzin Malone - Last Filed: 08/22/17 15:07> Date of Encounter: 08/22/17 - Assessment and plan (1) Nausea & vomiting Current Visit: Yes Status: Acute Qualifiers: Vomiting type: cyclical vomiting Vomiting Intractability: intractable Qualified Code(s): G43.A1 - Cyclical vomiting, intractable (2) DVT prophylaxis Current Visit: Yes Status: Acute (3) Ureteral stone Current Visit: Yes Status: Acute (4) Hydroureteronephrosis Current Visit: Yes Status: Acute (5) Essential hypertension Current Visit: Yes Status: Chronic (6) Cholelithiases Current Visit: Yes Status: Acute Qualifiers: Cholelithiasis location: gallbladder Cholecystitis presence: without cholecystitis Biliary obstruction: without biliary obstruction Qualified Code(s): K80.20 - Calculus of gallbladder without cholecystitis without obstruction - Time Spent With Patient Total time spent is greater than 50% in coordination of care (as documented) at patient's floor/unit and/or counseling patient: - Constitutional Vitals: Temp Pulse Resp BP Pulse Ox 98.7 F 93 14 109/73 96 08/22/17 10:40 08/22/17 10:40 08/22/17 10:40 08/22/17 10:40 08/22/17 10:40 Internal Medicine: Result - Labs CBC & Chem 7: 08/21/17 03:57 08/21/17 03:57 - ABG Interpretation ABG results: PT/INR, D-dimer PT 11.6 Seconds (9.4-12.1) 08/19/17 04:14 - Attending Attestation I examined this patient and my medical decision-making was reviewed with the Resident Physician Dr. Bryant. I agree with the documented findings, disposition and treatment plan as described except to the extent set forth below. Ms. Mcintosh is a 67 y/o F admitted here for intractable nausea / vomiting. She also happened to have ureteral calculi for which she did go for Left ureteroscopic laser lithotripsy of stone with left ureteral stent placement. However pt was still c/o intarctable nausea and vomiting with food intake. Her RUQ US showed cholelithiasis and concerning for cholecystitis. Pt did go for cholecystectomy on 08/19/17. She still has vomitings with meals.. However overall they are improved. Also c/o constipation x 10 days Gen: A, A,O x3 Abd: Soft,mild RUQ Tenderness + a/p 1. Intractable N/V 2. Cholecystitis with cholelithiasis 3. s/p cholecystectomy Still has vomiting advance diet as she tolerates started her on JOSE R Reglan 4. Constipation Stool softeners Suppository PRN
[2017-08-23] MEDS: Metoclopramide 10 MG/2 ML VIAL IVP SCH ×2 (00:14→06:20)
[2017-08-23] MEDS: *HR* Heparin 5,000 UNIT/ML VIAL SQ SCH (06:20)
[2017-08-23 06:38] VITALS: BP 122/66
[2017-08-23] MEDS: BuPROPion SR (12 HR) 100 MG TABLET PO SCH (08:22)
[2017-08-23] MEDS: Sucralfate 1 GM TABLET PO SCH (08:22)
[2017-08-23] MEDS: Sennosides/Docusate Sodium TABLET PO SCH (08:22)
--- NOTE | 2017-08-23 08:33 | Discharge Summary ---
<Maria LuisaVj calero Jarred - Last Filed: 08/23/17 08:30> - NOTES TO OUTPATIENT PROVIDER Notes to Outpatient Provider: Persistant nausea and vomiting improved after cholecystectomy Date of Encounter: 08/23/17 Time of Encounter: 08:30 - Discharge Diagnosis (1) Nausea & vomiting Priority: Primary Status: Resolved Qualifiers: Vomiting type: cyclical vomiting Vomiting Intractability: intractable Qualified Code(s): G43.A1 - Cyclical vomiting, intractable (2) Ureteral stone Priority: Primary Status: Resolved (3) Hydroureteronephrosis Priority: Primary Status: Resolved (4) Essential hypertension Priority: Secondary Status: Chronic (5) Cholelithiases Priority: Primary Status: Resolved Qualifiers: Cholelithiasis location: gallbladder Cholecystitis presence: without cholecystitis Biliary obstruction: without biliary obstruction Qualified Code(s): K80.20 - Calculus of gallbladder without cholecystitis without obstruction Hospital course: Ms. Mcintosh is a 67 year old female with history of hypothyroidism, hypertension , anxiety/depression presented with persistent nausea and vomiting. Initial CT showed a 6 x 4 mm stone in the distal left ureter with mild hydronephrosis. She underwent cystoscopy with stent placement which was successful however the patient continued to have persistent nausea and vomiting. Therefore GI was consulted and patient underwent upper endoscopy that was normal as well as a gastric emptying study which was also normal. Eventually a right upper quadrant ultrasound was ordered that showed evidence of cholecystitis. General surgery was consulted and patient underwent laparoscopic cholecystectomy on August 19. Postoperatively the patient's nausea and vomiting symptoms gradually improved and on the day of discharge she felt much better. She did have some issues with constipation during her stay was passing large amounts of gas. Patient is tolerating food well. She is stable to time of discharge. Discharge discussed with: patient, family, bilingual sales consultant - Time Spent with Patient Total time spent providing and/or coordinating discharge services: Greater than 30 minutes - Discharge Medications Prescriptions: Metoclopramide [Reglan] 10 mg PO Q6HR PRN #20 tablet PRN Reason: Nausea And Vomiting OxyCODONE/APAP 5/325 [Percocet 5/325 MG] 1 each PO Q6HR PRN 5 Days #20 tablet PRN Reason: Pain Docusate Sodium [Colace] 100 mg PO BID #30 capsule Polyethylene Glycol 3350 [MiraLAX] 17 gm PO DAILY #30 powd.pack Sennosides/Docusate Sodium [Senna Plus] 1 each PO BID PRN #60 tablet PRN Reason: Constipation Home Medications: Esomeprazole Magnesium [Nexium] 40 mg PO DAILY 10/17/14 [History] Multivit-Min/FA/Lycopen/Lutein [Centrum Silver Tablet] 1 tab PO DAILY 10/17/14 [ History] Escitalopram [Lexapro] 20 mg PO DAILY 07/10/15 [History] BuPROPion SR (12 HR) [Wellbutrin SR] 100 mg PO BID 01/07/16 [History] Gluc HCl/Csa/Collagen/Hyalur A [Glucosamine Chondroitin Cap] 1 each PO BID 05/05 [History] hydroCHLOROthiazide [Hydrochlorothiazide] 25 mg PO DAILY 05/05/16 [History] Zolpidem [Ambien] 5 mg PO HS 05/09/16 [History] Nortriptyline HCl 10 mg PO HS 03/26/17 [History] Cholestyramine 4 gm PO BID #60 powd.pack 08/06/17 [Rx] Docusate Sodium [Colace] 1 cap PO BID #60 capsule 08/06/17 [Rx] Ondansetron ODT [Zofran ODT] 4 mg SL Q6HR PRN #15 tab.rapdis 08/10/17 [Rx] Cholecalciferol (D-3) [Vitamin D] 1,000 unit PO DAILY 08/11/17 [History] Levothyroxine Sodium [Levoxyl] 88 mcg PO DAILY 08/11/17 [History] Docusate Sodium [Colace] 100 mg PO BID #30 capsule 08/20/17 [Rx] OxyCODONE/APAP 5/325 [Percocet 5/325 MG] 1 each PO Q6HR PRN 5 Days #20 tablet [Rx] Metoclopramide [Reglan] 10 mg PO Q6HR PRN #20 tablet 08/23/17 [Rx] Polyethylene Glycol 3350 [MiraLAX] 17 gm PO DAILY #30 powd.pack 08/23/17 [Rx] Sennosides/Docusate Sodium [Senna Plus] 1 each PO BID PRN #60 tablet 08/23/17 [ Rx] Allergies/Adverse Reactions: 3 Allergy/AdvReac Type Severity Reaction Status Date / Time Iodinated Contrast- Oral and AdvReac Hives Verified 08/10/17 19:19 IV Dye [Iodinated Contrast Media - Oral and] Date of admission: 08/13/17 09:45 Primary care physician: Levi Wooten MD Consults: 08/13/17 12:50 Consult to Gastroenterology [CONS] Routine Consulting Provider: Gastroenterology [facility] Reason for Consult: Nausea/vomiting and inability to tolerate by mouth Time Notified: 12:30 Call Completed: Yes 08/17/17 18:59 Consult to Nutrition [CONS] Routine Comment: Consulting Provider: NUTRITION Reason for Dietary Consult: TPN Start and Manage 08/18/17 12:07 Consult to Surgery [CONS] Routine Consulting Provider: [facility] Reason for Consult: N&V, choleocystitis Time Notified: 12:08 Call Completed: Yes Discharging clinician: Vj Bryant Anticipated date of discharge: 08/23/17 - Constitutional Vitals: Temp Pulse Resp BP Pulse Ox 97.7 F 62 14 122/66 98 08/23/17 06:34 08/23/17 06:34 08/23/17 06:34 08/23/17 06:34 08/23/17 08:26 General appearance: Present: cooperative, A&O X 3, no acute distress, answers questions appropriately - Respiratory Respiratory exam: Present: CTAB. Absent: rales, rhonchi, wheezes - Cardiovascular Cardiovascular exam: Present: RRR. Absent: gallop, rubs, systolic murmur - GI/Abdominal GI/Abdominal exam: Present: normal bowel sounds, soft. Absent: tenderness - Extremities Exam Extremities exam: Present: warm. Absent: pedal edema, tenderness - Neurological Exam Neurological exam: Present: alert, CN II-XII intact, oriented X3, no focal deficits - Patient Status Disposition: Home, Self-Care Condition: Good Functional capacity at discharge: independent ambulation Overall status at discharge: patient is progressing back to baseline - Discharge Instructions Instructions: Urinary Tract Infection in Women (DC), Depression (DC), Hypothyroidism (DC), Chronic Hypertension (DC) Follow Up With: Vidal Red MD [Partnered Physician] - Irineo Moe DO [Partnered Physician] - 09/01/17 10:50 am (Surgery follow-up) Levi Wooten MD [Primary Care Provider] - Additional Instructions: #1 may shower, no tub bath for 2 weeks #2 wash incisions with soap and water and pat dry daily #3 no lifting, pushing, pulling more than 15 pounds for the next 2 weeks #4 no driving until off narcotics for 24 hours and able to safely react in the car #5 may climb stairs Please follow-up with your primary care physician, and general surgeon as scheduled. Please resume your home medications. Please use MiraLAX, Colace, and senna plus as needed for constipation. Please return for any new or worsening symptoms. - Diet and Activity Activity: increase activity as tolerated Diet: advance to your usual diet - VTE Documentation of Mechanical Device: Intermittent pneumatic compression device <Tenzin Malone - Last Filed: 08/23/17 15:01> Date of Encounter: 08/23/17 - Discharge Diagnosis (1) Nausea & vomiting Status: Resolved Qualifiers: Vomiting type: cyclical vomiting Vomiting Intractability: intractable Qualified Code(s): G43.A1 - Cyclical vomiting, intractable (2) Ureteral stone Status: Resolved (3) Hydroureteronephrosis Status: Resolved (4) Essential hypertension Status: Chronic (5) Cholelithiases Status: Resolved Qualifiers: Cholelithiasis location: gallbladder Cholecystitis presence: without cholecystitis Biliary obstruction: without biliary obstruction Qualified Code(s): K80.20 - Calculus of gallbladder without cholecystitis without obstruction Hospital course: Ms. Mcintosh is a 67 year old female - Time Spent with Patient Total time spent providing and/or coordinating discharge services: Date of admission: 08/13/17 09:45 Primary care physician: Levi Wooten MD Consults: 08/13/17 12:50 Consult to Gastroenterology [CONS] Routine Consulting Provider: Gastroenterology [facility] Reason for Consult: Nausea/vomiting and inability to tolerate by mouth Time Notified: 12:30 Call Completed: Yes 08/17/17 18:59 Consult to Nutrition [CONS] Routine Comment: Consulting Provider: NUTRITION Reason for Dietary Consult: TPN Start and Manage 08/18/17 12:07 Consult to Surgery [CONS] Routine Consulting Provider: Surgery [facility] Reason for Consult: N&V, choleocystitis Time Notified: 12:08 Call Completed: Yes - Constitutional Vitals: Temp Pulse Resp BP Pulse Ox 97.7 F 62 14 122/66 98 08/23/17 06:34 08/23/17 06:34 08/23/17 06:34 08/23/17 06:34 08/23/17 08:26 - Attending Attestation I examined this patient and my medical decision-making was reviewed with the Resident Physician Dr. Bryant. I agree with the documented findings, disposition and treatment plan as described except to the extent set forth below. Ms. Mcintosh is a 67 y/o F admitted here for intractable nausea / vomiting. She also happened to have ureteral calculi for which she did go for Left ureteroscopic laser lithotripsy of stone with left ureteral stent placement. However pt was still c/o intractable nausea and vomiting with food intake. Her RUQ US showed cholelithiasis and concerning for cholecystitis. Pt did go for cholecystectomy on 08/19/17. Since then her vomitings improved. Now she is tolerating PO intake well. Gen: A, A,O x3 Abd: Soft,mild RUQ Tenderness + a/p 1. Intractable N/V 2. Cholecystitis with cholelithiasis 3. s/p cholecystectomy Soft diet medically stable to d/c home will give her Reglan PRN 4. Constipation Stool softeners Suppository PRN
== END 2017-08-23 10:12 | disposition home or self-care (01) | DRG 418 ==
LOC: 3ANU 15:50 → EMEROO 15:50 → SUATTDRO 23:56 → 3ANU 08-11 00:22 → SUATTDRO 08-13 09:45
PROVIDERS: ADMIT Internal Medicine; ATTEND Family Medicine
PROC: ENDOEBX (2017-08-14 17:10)

== ENCOUNTER 2018-09-26 09:00 | Inpatient (IN) ==
[2018-09-26] MEDS ORDERED: Ipratropium/Albuterol Neb 3 ML IH ONE (09:24)
[2018-09-26 09:37] LABS: Bilirubin,Urine Small (Negative); Blood,Urine Moderate (Negative); Clarity,Urine Turbid (Clear); Color,Urine Dark Yellow (Yellow); Glucose,Urine (UA) Normal (Normal); Ketones,Urine 40 mg/dL (Negative); Leukocyte Esterase,Urine Large (Negative); Nitrite,Urine Negative (Negative); PH,Urine 6.5 pH Units (5.0-8.0); Protein,Urine 100 mg/dL (Neg-Trace); Specific Gravity,Urine 1.023 (1.010-1.025); Urobilinogen,Urine Normal (Normal)
[2018-09-26 09:39] LABS: Bacteria,Urine Few per hpf (None-Few); RBC,Urine 30-50 per hpf (0-3); Squamous Epithelial Cell,Urine Many per lpf (None-Few); WBC,Urine TNTC per hpf (0-3)
[2018-09-26 09:45] LABS: Transitional Epi Cells,Urine Few per hpf (None-Few)
[2018-09-26] MEDS: 0.9 % Sodium Chloride 1,000 ML IVC SCH ×4 (10:11→23:28)
[2018-09-26 10:20] LABS: Basophils % 0.2 %; Eosinophils % 0.1 %; Hematocrit 38.3 % (35.3-44.9); Hemoglobin 12.6 g/dL (11.5-15.4); Immature Granulocytes % 0.8 % (0-4); Lymphocytes # 0.3 K/mcL (0.6-4.6); Lymphocytes % 2.2 %; Mean Corpuscular HGB Conc 32.9 g/dL (31.6-35.5); Mean Corpuscular Hemoglobin 32.2 pg (28.0-33.3); Monocytes # 0.2 K/mcL (0.0-1.3); Monocytes % 1.7 %; Neutrophils # 12.3 K/mcL (1.6-8.9); Platelet Count 202 K/mcL (140-400); Red Blood Count 3.91 M/mcL (3.82-4.97); Red Cell Distribution Width 12.6 % (11.5-14.5)
[2018-09-26 10:22] LABS: VBG HCO3 23 mEq/L (21-27); VBG PCO2 38 mmHg (41-51); VBG PH 7.39 pH Units (7.32-7.42); VBG PO2 99 mmHg (25-50)
[2018-09-26 10:31] LABS: INR 1.2; Prothrombin Time 13.2 Seconds (9.4-12.1)
[2018-09-26 10:34] LABS: Activated Partial Thrombo Time 33.2 Seconds (26.0-36.0)
[2018-09-26 10:42] LABS: Alanine Aminotransferase 82 Units/L (7-52); Albumin/Globulin Ratio 1.5 (1.1-2.2); Alkaline Phosphatase 151 Units/L (34-104); Aspartate Amino Transferase 75 Units/L (13-39); BUN/Creatinine Ratio 26 (6-26); Bilirubin,Direct 0.6 mg/dL (0.0-0.2); Bilirubin,Indirect 0.4 mg/dL (0.0-1.2); Blood Urea Nitrogen 23 mg/dL (8-23); Calcium 9.2 mg/dL (8.6-10.3); Carbon Dioxide 23 mEq/L (23-29); Chloride 98 mEq/L (98-107); Globulin 2.6 g/dL (2.4-3.5); Glucose 137 mg/dL (70-105); Lipase 11 Units/L (11-82); Magnesium 1.9 mg/dL (1.6-2.6); Osmolality,Calculated 282 (280-300); Phosphorous 1.7 mg/dL (2.7-4.5); Potassium 3.3 mEq/L (3.5-5.1); Sodium 133 mEq/L (136-145); Total Protein 6.6 g/dL (6.4-8.9); Troponin I < 0.03 ng/mL (< 0.04); eGFR For African Americans > 60 (> 60); eGFR For Non-African Americans > 60 (> 60)
[2018-09-26] MEDS ORDERED: Ondansetron 4 MG/2 ML VIAL IVP STA (10:42)
[2018-09-26] MEDS ORDERED: Ibuprofen 400 MG TABLET PO ONE (10:43)
[2018-09-26] MEDS ORDERED: Potassium Chloride 20 MEQ, Lidocaine 1% 2 ML in D5% in Water 250 ML IVPB ONE (10:57)
[2018-09-26] MEDS ORDERED: cefTRIAXone 1,000 MG in 0.9 % Sodium Chloride Mini Bag 100 ML IVPB ONE (11:01)
[2018-09-26] MEDS ORDERED: Ondansetron 4 MG/2 ML VIAL IVP ONE (11:22)
[2018-09-26] MEDS ORDERED: Metoclopramide 10 MG/2 ML VIAL IVP STA ×2 (12:48→14:02)
[2018-09-26] MEDS ORDERED: *HR* Metoprolol 5 MG/5 ML VIAL IVP PRN (12:51)
[2018-09-26] MEDS ORDERED: Ondansetron 4 MG/2 ML VIAL IVP PRN (12:53)
[2018-09-26] MEDS ORDERED: Naloxone 0.4 MG/ML INJ IVP PRN (12:53)
[2018-09-26] MEDS ORDERED: 0.9 % Sodium Chloride 1,000 ML IVC SCH ×2 (13:00)
[2018-09-26] MEDS: BuPROPion SR (12 HR) 100 MG TABLET PO SCH (21:48)
[2018-09-26] MEDS: Sennosides/Docusate Sodium TABLET PO SCH (21:49)
[2018-09-27] MEDS: *HR* Enoxaparin 40 MG/0.4 ML SYRINGE SQ SCH (05:17)
[2018-09-27 06:59] LABS: Hematocrit 30.9 % (35.3-44.9); Mean Corpuscular Hemoglobin 32.2 pg (28.0-33.3); Mean Corpuscular Volume 100.7 fL (83.0-100.0); Mean Platelet Volume 9.8 fL (9.4-12.4); Platelet Count 168 K/mcL (140-400); Red Blood Count 3.07 M/mcL (3.82-4.97); Red Cell Distribution Width 12.9 % (11.5-14.5)
[2018-09-27 07:04] LABS: Hemoglobin 9.9 g/dL (11.5-15.4); White Blood Count 4.8 K/mcL (4.3-11.1)
[2018-09-27] MEDS: 0.9 % Sodium Chloride 1,000 ML IVC SCH (07:07)
[2018-09-27 07:20] LABS: Alanine Aminotransferase 44 Units/L (7-52); Albumin 2.8 g/dL (3.5-5.7); Albumin/Globulin Ratio 1.5 (1.1-2.2); Alkaline Phosphatase 110 Units/L (34-104); Aspartate Amino Transferase 33 Units/L (13-39); BUN/Creatinine Ratio 22 (6-26); Bilirubin,Direct 0.2 mg/dL (0.0-0.2); Bilirubin,Indirect 0.2 mg/dL (0.0-1.2); Bilirubin,Total 0.4 mg/dL (0.3-1.0); Blood Urea Nitrogen 14 mg/dL (8-23); Calcium 7.7 mg/dL (8.6-10.3); Carbon Dioxide 21 mEq/L (23-29); Chloride 108 mEq/L (98-107); Globulin 1.9 g/dL (2.4-3.5); Glucose 93 mg/dL (70-105); Osmolality,Calculated 286 (280-300); Potassium 3.6 mEq/L (3.5-5.1); Sodium 138 mEq/L (136-145); Total Protein 4.7 g/dL (6.4-8.9); eGFR For African Americans > 60 (> 60); eGFR For Non-African Americans > 60 (> 60)
[2018-09-27] MEDS: cefTRIAXone 1,000 MG in Water for inj. (sterile) 10 ML IVP SCH (08:10)
[2018-09-27] MEDS: Sennosides/Docusate Sodium TABLET PO SCH ×2 (08:11→22:29)
[2018-09-27] MEDS: BuPROPion SR (12 HR) 100 MG TABLET PO SCH ×2 (08:12→22:29)
[2018-09-27 15:14] LABS: Basophils # 0.1 K/mcL (0.0-0.2); Eosinophils # 0.1 K/mcL (0.0-0.6); Lymphocytes # 0.2 K/mcL (0.6-4.6); Monocytes # 0.3 K/mcL (0.0-1.3); Neutrophils # 4.1 K/mcL (1.6-8.9); Toxic Granulation Present (Not Present)
[2018-09-27 15:16] LABS: Platelet Estimate Normal (Normal)
[2018-09-27] MEDS ORDERED: 0.9 % Sodium Chloride 1,000 ML ONE (15:46)
[2018-09-27 17:00] LABS: Hematocrit 30.8 % (35.3-44.9); Hemoglobin 9.9 g/dL (11.5-15.4); Mean Corpuscular HGB Conc 32.1 g/dL (31.6-35.5); Mean Corpuscular Hemoglobin 32.1 pg (28.0-33.3); Mean Platelet Volume 10.3 fL (9.4-12.4); Platelet Count 158 K/mcL (140-400); Red Blood Count 3.08 M/mcL (3.82-4.97); Red Cell Distribution Width 12.9 % (11.5-14.5); White Blood Count 3.6 K/mcL (4.3-11.1)
[2018-09-28 00:12] LABS: Hematocrit 30.2 % (35.3-44.9)
[2018-09-28] MEDS: *HR* Enoxaparin 40 MG/0.4 ML SYRINGE SQ SCH (05:35)
[2018-09-28 06:00] LABS: Hematocrit 31.2 % (35.3-44.9); Hemoglobin 9.9 g/dL (11.5-15.4); Mean Corpuscular HGB Conc 31.7 g/dL (31.6-35.5); Mean Corpuscular Hemoglobin 32.6 pg (28.0-33.3); Mean Corpuscular Volume 102.6 fL (83.0-100.0); Mean Platelet Volume 10.1 fL (9.4-12.4); Platelet Count 165 K/mcL (140-400); Red Blood Count 3.04 M/mcL (3.82-4.97); Red Cell Distribution Width 12.8 % (11.5-14.5)
[2018-09-28 06:20] LABS: BUN/Creatinine Ratio 11 (6-26); Blood Urea Nitrogen 7 mg/dL (8-23); Carbon Dioxide 25 mEq/L (23-29); Chloride 109 mEq/L (98-107); Glucose 93 mg/dL (70-105); Osmolality,Calculated 286 (280-300); Potassium 3.3 mEq/L (3.5-5.1); Sodium 139 mEq/L (136-145); eGFR For African Americans > 60 (> 60); eGFR For Non-African Americans > 60 (> 60)
[2018-09-28] MEDS: Sennosides/Docusate Sodium TABLET PO SCH (07:37)
[2018-09-28] MEDS: cefTRIAXone 1,000 MG in Water for inj. (sterile) 10 ML IVP SCH (07:37)
[2018-09-28] MEDS: BuPROPion SR (12 HR) 100 MG TABLET PO SCH (07:38)
[2018-09-28] MEDS ORDERED: Acetaminophen 325 MG TABLET PO PRN (09:07)
[2018-09-28] MEDS ORDERED: Ibuprofen 400 MG TABLET PO PRN (09:41)
[2018-09-28 11:09] VITALS: BP 136/79
[2018-09-28 11:26] LABS: Hemoglobin 10.8 g/dL (11.5-15.4)
== END 2018-09-28 12:55 | disposition home or self-care (01) | DRG 872 ==
LOC: EMEROOARM 09:00 → 3ANU 09:00 → OBSVTOIN 11:52 → 3ANU 13:10
PROVIDERS: ADMIT Student in an Organized Health Care Education/Training Program; ATTEND Student in an Organized Health Care Education/Training Program

== ENCOUNTER 2018-12-06 10:44 | Inpatient (IN) ==
--- NOTE | 2018-12-06 11:37 | Emergency Department Note ---
Disposition Clinical Impression: UTI (urinary tract infection) Qualifiers: Urinary tract infection type: acute cystitis Hematuria presence: without hematuria Qualified Code(s): N30.00 - Acute cystitis without hematuria Disposition: Admitted As Inpatient Condition: Fair Referrals: Levi Wooten MD [Primary Care Provider] - Forms: ED Satisfaction Letter Time of Disposition: 13:46 Female Urogenital HPI - General Chief complaint: ED Urogenital-Female Stated complaint: vomiting,chills,headache Time Seen by Provider: 12/06/18 11:25 Source: patient Mode of arrival: ambulatory Limitations: no limitations Nursing Notes Reviewed: Yes Vital Signs Reviewed: Yes - History of Present Illness HPI Narrative: Patient is a 68-year-old female who is presenting with fever. Patient has known history of fibromyalgia and was recently diagnosed approximately 6 days ago with urinary tract infection, had been treated by Dr. Je Allan and nitrofurantoin, she completed these courses however has continued to have dysuria with flank pain. Over the past day or 2 she is also began to have fevers and chills, MAXIMUM TEMPERATURE of 102 at home. She has had multiple epi sodes of nausea with vomiting, no hematemesis. She states her symptoms have not significant improved. She is concerned that she has been "sepsis" before and is concerned that she is trending this way again. Patient does have hx of nephrolithiasis, however she states that her back pain is generalized and not unilateral, and she says this feels similar but than her typical back pain with kidney stones. - Related Data Home Medications Medication Instructions Recorded Confirmed Esomeprazole Magnesium [Nexium] 40 mg PO DAILY PRN 10/17/14 09/26/18 Multivit-Min/FA/Lycopen/Lutein 1 tab PO DAILY 10/17/14 09/26/18 [Centrum Silver Tablet] Escitalopram [Lexapro] 20 mg PO DAILY 07/10/15 09/26/18 BuPROPion SR (12 HR) [Wellbutrin 100 mg PO BID 01/07/16 09/26/18 SR] Gluc HCl/Csa/Collagen/Hyalur A 1 each PO BID 05/05/16 09/26/18 [Glucosamine Chondroitin Cap] Zolpidem [Ambien] 5 mg PO HS 05/09/16 09/26/18 Cholecalciferol (D-3) [Vitamin D] 1,000 unit PO DAILY 08/11/17 09/26/18 Levothyroxine Sodium [Levoxyl] 88 mcg PO DAILY 08/11/17 09/26/18 Ascorbate Calcium [Vitamin C] 500 mg PO DAILY 09/17/17 09/26/18 Cyanocobalamin (Vitamin B-12) 1,000 mcg PO DAILY 09/17/17 09/26/18 [Vitamin B-12] Ferrous Sulfate [Iron] 325 mg PO DAILY 09/17/17 09/26/18 Meclizine [Antivert] 12.5 mg PO DAILY PRN 09/17/17 09/26/18 Tramadol HCl [Ultram] 50 mg PO TID PRN 09/17/17 09/26/18 Vitamin E (Dl,Tocopheryl Acet) 400 unit PO BID 09/17/17 09/26/18 [Vitamin E] Nortriptyline HCl 10 mg PO HS 05/04/18 09/26/18 Sennosides/Docusate Sodium 1 each PO BID 05/04/18 09/26/18 [Senna-S Tablet] Previous Rx's Medication Instructions Recorded Polyethylene Glycol 3350 [MiraLAX] 17 gm PO DAILY #30 powd.pack 08/23/17 Cefdinir [Omnicef] 300 mg PO BID 4 Days #8 capsule 09/28/18 Allergies Allergy/AdvReac Type Severity Reaction Status Date / Time Iodinated Contrast Media AdvReac Hives Verified 12/06/18 10:48 [Iodinated Contrast Media - Oral and] All systems ED: reviewed and negative except as stated. Review of Systems: As Per HPI Constitutional: Reports: fever, chills, weakness ENT ED: Denies: congestion Cardiovascular: Denies: chest pain, palpitations, dyspnea on exertion Respiratory: Denies: cough, dyspnea Gastrointestinal: Reports: abdominal pain, nausea, vomiting. Denies: diarrhea, hematemesis, melena, hematochezia Genitourinary: Reports: urgency, dysuria, frequency. Denies: hematuria, discharge Musculoskeletal: Reports: back pain Integumentary: Denies: rash Neurological: Denies: headache, weakness, numbness, confusion Endocrine: Denies: fatigue Past Medical History - Past Medical History Medical history: Reports: cancer, fibromyalgia, GERD, kidney stones, other Surgical history: Reports: appendectomy, breast surgery, herniorrhaphy, hysterectomy, other Psychiatric history: Reports: anxiety, depression - Social History Smoking Status: Never smoker Smokeless Tobacco Status: No Alcohol use: Reports: none Drug use: Reports: none Physical Exam - General Limitations: no limitations General appearance: alert, in no apparent distress - Head Head exam: atraumatic, normocephalic, normal inspection - Eye Eye exam: Present: normal appearance, PERRL, EOMI - ENT ENT exam: normal exam, normal oropharynx, mucous membranes moist - Neck Neck exam: Present: normal inspection, full ROM, trachea midline - Chest Chest inspection: Present: normal inspection, symmetric chest wall rise - Respiratory Respiratory exam: Present: normal lung sounds bilaterally - Cardiovascular Cardiovascular exam: Present: regular rate, normal rhythm, normal heart sounds - Abdominal Exam Abdominal exam: Present: soft, tenderness (Left lower quadrant tenderness without guarding or rebound, no distention, patient also has bilateral flank pain, no specific CVA tenderness) - Extremities Exam Extremities exam: Present: normal inspection, full ROM. Absent: tenderness, pedal edema - Expanded Lower Extremity Exam Neurovascular/Tendon exam: Absent: motor deficit, sensory deficit, tendon deficit - Back Exam Back exam: Absent: vertebral tenderness - Neurological Exam Neurological exam: Present: alert, oriented X3 - Psychiatric Psychiatric exam: Present: normal affect, normal mood - Skin Skin exam: Present: warm, dry, intact, normal color Course Vital Signs Temperature 97.8 F 12/06/18 10:48 Pulse Rate 101 12/06/18 10:48 Respiratory Rate 20 12/06/18 10:48 Blood Pressure 93/58 12/06/18 10:48 O2 Sat by Pulse Oximetry 97 12/06/18 10:48 Temperature 97.8 F 12/06/18 10:48 Pulse Rate 87 12/06/18 13:22 Respiratory Rate 16 12/06/18 13:22 Blood Pressure 108/59 12/06/18 13:22 O2 Sat by Pulse Oximetry 100 12/06/18 13:22 Oxygen Delivery Oxygen Delivery Room Air Urogenital-Female - MDM Narrative Medical decision making narrative: A sugar 68-year-old female presenting with dysuria and fever. Patient has at this point in time failed outpatient antibiotics that she is still finished a course of Cipro and nitrofurantoin with continued symptoms. Patient's urinalysis on 11/29/2018 showed positive protease and enterococcus which had only dual sensitivity to ampicillin. On initial arrival, patient was noted to be tachycardic with a heart rate of 101, afebrile but slightly low blood pressure, with noted fever at home. Due to this, patient did meet surge criteria and therefore sepsis criteria was met with most likely etiology being urinary tract infection. Given this, patient was started on 2 L normal saline, blood cultures as well as lactic acid were performed. Patient was started on ampicillin on arrival with a UTI as suspected source. CBC shows slight leukocytosis, BMP shows slight hypokalemia, this was replaced with by mouth 40 mEq. Further BMP is relatively unremarkable. Patient has otherwise remained stable, blood pressure has been responsive to the 2 L of fluids. At this point in time, patient will be admitted for urinary tract infection, with concern for urosepsis. CT of the abdomen and pelvis was performed to rule out infected kidney stone as well as diverticulitis, there is note to be nonobstructing stones, do not suspect that this is infected, referral patient will be admitted for urosepsis. Patient is otherwise remained stable, she is in no acute distress, she agrees with admission at this time. - Differential Diagnosis Likely: urinary tract infection - Medical Records Medical records reviewed: Yes I reviewed the patient's medical records. - Lab Data Lab results reviewed: Yes I reviewed the patient's lab results. Result diagrams: 12/06/18 12:47 12/06/18 12:47 Lab Results 12/06/18 12/06/18 12/06/18 Range/Units 12:38 12:47 12:47 WBC 12.3 H (4.3-11.1) K/mcL RBC 3.59 L (3.82-4.97) M/mcL Hgb 11.4 L (11.5-15.4) g/dL Hct 34.7 L (35.3-44.9) % MCV 96.7 (83.0-100.0) fL MCH 31.8 (28.0-33.3) pg MCHC 32.9 (31.6-35.5) g/dL RDW 13.2 (11.5-14.5) % Plt Count 207 (140-400) K/mcL MPV 9.9 (9.4-12.4) fL Immature Gran % 0.3 (0-4) % Seg Neutrophils % 90.4 % Lymphocytes % 2.8 % Monocytes % 4.5 % Eosinophils % 1.9 % Basophils % 0.1 % Neutrophils # 11.1 H (1.6-8.9) K/mcL Lymphocytes # 0.3 L (0.6-4.6) K/mcL Monocytes # 0.6 (0.0-1.3) K/mcL Eosinophils # 0.2 (0.0-0.6) K/mcL Basophils # 0.0 (0.0-0.2) K/mcL PT (9.4-12.1) Seconds INR APTT (26.0-36.0) Seconds Sodium (136-145) mEq/L Potassium (3.5-5.1) mEq/L Chloride (98-107) mEq/L Carbon Dioxide (23-29) mEq/L BUN (8-23) mg/dL Creatinine (0.60-1.20) mg/dL Est GFR ( Amer) (> 60) Est GFR (Non-Af Amer) (> 60) BUN/Creatinine Ratio (6-26) Glucose (70-105) mg/dL Calculated Osmolality (280-300) Lactic Acid 1.5 (0.5-2.2) mmol/L Calcium (8.6-10.3) mg/dL Phosphorus (2.7-4.5) mg/dL Magnesium (1.6-2.6) mg/dL Urine Color Dark Yellow (Yellow) Urine Clarity Cloudy A (Clear) Urine pH 6.0 (5.0-8.0) pH Units Ur Specific Spicer 1.022 (1.010-1.025) Urine Protein 30 H (Neg-Trace) mg/dL Urine Glucose (UA) Normal (Normal) mg/dL Urine Ketones Trace H (Negative) mg/dL Urine Blood Small H (Negative) Urine Nitrite Negative (Negative) Urine Bilirubin Small H (Negative) Urine Urobilinogen Normal (Normal) mg/dL Ur Leukocyte Esterase Moderate H (Negative) Urine Microscopic RBC 5-15 H (0-3) per hpf Urine Microscopic WBC 50-100 H (0-3) per hpf Ur Squamous Epith Cells Many H (None-Few) per lpf Ur Transition Epith Cell Few (None-Few) per hpf Urine Bacteria None Seen (None-Few) per hpf Hyaline Casts Few (None-Few) per lpf Ur Culture Indicated? YES A (NO) 12/06/18 12/06/18 Range/Units 12:47 12:47 WBC (4.3-11.1) K/mcL RBC (3.82-4.97) M/mcL Hgb (11.5-15.4) g/dL Hct (35.3-44.9) % MCV (83.0-100.0) fL MCH (28.0-33.3) pg MCHC (31.6-35.5) g/dL RDW (11.5-14.5) % Plt Count (140-400) K/mcL MPV (9.4-12.4) fL Immature Gran % (0-4) % Seg Neutrophils % % Lymphocytes % % Monocytes % % Eosinophils % % Basophils % % Neutrophils # (1.6-8.9) K/mcL Lymphocytes # (0.6-4.6) K/mcL Monocytes # (0.0-1.3) K/mcL Eosinophils # (0.0-0.6) K/mcL Basophils # (0.0-0.2) K/mcL PT 11.4 (9.4-12.1) Seconds INR 1.0 APTT 31.7 (26.0-36.0) Seconds Sodium 135 L (136-145) mEq/L Potassium 3.2 L (3.5-5.1) mEq/L Chloride 103 (98-107) mEq/L Carbon Dioxide 29 (23-29) mEq/L BUN 26 H (8-23) mg/dL Creatinine 1.08 (0.60-1.20) mg/dL Est GFR ( Amer) > 60 (> 60) Est GFR (Non-Af Amer) 50 L (> 60) BUN/Creatinine Ratio 24 (6-26) Glucose 131 H (70-105) mg/dL Calculated Osmolality 287 (280-300) Lactic Acid (0.5-2.2) mmol/L Calcium 9.5 (8.6-10.3) mg/dL Phosphorus 2.5 L (2.7-4.5) mg/dL Magnesium 2.1 (1.6-2.6) mg/dL Urine Color (Yellow) Urine Clarity (Clear) Urine pH (5.0-8.0) pH Units Ur Specific Spicer (1.010-1.025) Urine Protein (Neg-Trace) mg/dL Urine Glucose (UA) (Normal) mg/dL Urine Ketones (Negative) mg/dL Urine Blood (Negative) Urine Nitrite (Negative) Urine Bilirubin (Negative) Urine Urobilinogen (Normal) mg/dL Ur Leukocyte Esterase (Negative) Urine Microscopic RBC (0-3) per hpf Urine Microscopic WBC (0-3) per hpf Ur Squamous Epith Cells (None-Few) per lpf Ur Transition Epith Cell (None-Few) per hpf Urine Bacteria (None-Few) per hpf Hyaline Casts (None-Few) per lpf Ur Culture Indicated? (NO) - Radiology Data Radiology results reviewed: Yes I reviewed the patient's radiology results. Abdomen/Pelvis CT 12/06/18 12:55 IMPRESSION: Nonobstructing bilateral renal calculi, measuring up to 3 mm on the right and 4 mm on the left. No hydronephrosis. No acute inflammatory process in the abdomen or pelvis. D/ / 12/06/2018 13:04:30 Alison Ni MD / [facility] Interpreting Provider: Alison Ni MD - EKG Data EKG attestation: Yes I reviewed and interpreted this EKG. EKG results narrative: EKG performed at 1154 with ventricular rate of 89, regular rhythm, normal axis, no acute segment elevation, depression or T-wave changes. Attestation Statement - Attestation Attestation: I, Neil Hernandez DO, examined this patient [id number] and my medical decision-making was reviewed with Dr. Lenin Black , Resident Physician. I agree with the documented findings, disposition and treatment plan as described except to the extent set forth below. I personally supervised and was present for the zhou/critical portions of the procedures completed by the resident documented below. Please see my progress notes for details.
[2018-12-06] MEDS ORDERED: Ampicillin 2 GM in 0.9 % Sodium Chloride Mini Bag 100 ML IVPB ONE (12:00)
[2018-12-06] MEDS ORDERED: Ondansetron 4 MG/2 ML VIAL IVP ONE (12:11)
--- NOTE | 2018-12-06 12:23 | Emergency Department Note ---
Disposition Clinical Impression: UTI (urinary tract infection) Qualifiers: Urinary tract infection type: acute cystitis Hematuria presence: without hematuria Qualified Code(s): N30.00 - Acute cystitis without hematuria Disposition: Admitted As Inpatient Condition: Fair Referrals: Levi Wooten MD [Primary Care Provider] - Forms: ED Satisfaction Letter Time of Disposition: 14:15 General Adult HPI - General Chief complaint: ED Urogenital-Female Stated complaint: vomiting,chills,headache Time Seen by Provider: 12/06/18 11:25 Source: patient Limitations: no limitations - History of Present Illness Pain Scale: 8 - Related Data Home Medications Medication Instructions Recorded Confirmed Esomeprazole Magnesium [Nexium] 40 mg PO DAILY PRN 10/17/14 09/26/18 Multivit-Min/FA/Lycopen/Lutein 1 tab PO DAILY 10/17/14 09/26/18 [Centrum Silver Tablet] Escitalopram [Lexapro] 20 mg PO DAILY 07/10/15 09/26/18 BuPROPion SR (12 HR) [Wellbutrin 100 mg PO BID 01/07/16 09/26/18 SR] Gluc HCl/Csa/Collagen/Hyalur A 1 each PO BID 05/05/16 09/26/18 [Glucosamine Chondroitin Cap] Zolpidem [Ambien] 5 mg PO HS 05/09/16 09/26/18 Cholecalciferol (D-3) [Vitamin D] 1,000 unit PO DAILY 08/11/17 09/26/18 Levothyroxine Sodium [Levoxyl] 88 mcg PO DAILY 08/11/17 09/26/18 Ascorbate Calcium [Vitamin C] 500 mg PO DAILY 09/17/17 09/26/18 Cyanocobalamin (Vitamin B-12) 1,000 mcg PO DAILY 09/17/17 09/26/18 [Vitamin B-12] Ferrous Sulfate [Iron] 325 mg PO DAILY 09/17/17 09/26/18 Meclizine [Antivert] 12.5 mg PO DAILY PRN 09/17/17 09/26/18 Tramadol HCl [Ultram] 50 mg PO TID PRN 09/17/17 09/26/18 Vitamin E (Dl,Tocopheryl Acet) 400 unit PO BID 09/17/17 09/26/18 [Vitamin E] Nortriptyline HCl 10 mg PO HS 05/04/18 09/26/18 Sennosides/Docusate Sodium 1 each PO BID 05/04/18 09/26/18 [Senna-S Tablet] Previous Rx's Medication Instructions Recorded Polyethylene Glycol 3350 [MiraLAX] 17 gm PO DAILY #30 powd.pack 08/23/17 Cefdinir [Omnicef] 300 mg PO BID 4 Days #8 capsule 09/28/18 Allergies Allergy/AdvReac Type Severity Reaction Status Date / Time Iodinated Contrast Media AdvReac Hives Verified 12/06/18 10:48 [Iodinated Contrast Media - Oral and] Past Medical History - Past Medical History Medical history: Reports: cancer, fibromyalgia, GERD, kidney stones, other Surgical history: Reports: appendectomy, breast surgery, herniorrhaphy, hysterectomy, other Psychiatric history: Reports: anxiety, depression - Social History Smoking Status: Never smoker Smokeless Tobacco Status: No Alcohol use: Reports: none Drug use: Reports: none Physical Exam - General Limitations: no limitations General appearance: alert, in no apparent distress Course Vital Signs Temperature 97.8 F 12/06/18 10:48 Pulse Rate 101 12/06/18 10:48 Respiratory Rate 20 12/06/18 10:48 Blood Pressure 93/58 12/06/18 10:48 O2 Sat by Pulse Oximetry 97 12/06/18 10:48 Temperature 97.8 F 12/06/18 10:48 Pulse Rate 87 12/06/18 13:22 Respiratory Rate 16 12/06/18 13:22 Blood Pressure 108/59 12/06/18 13:22 O2 Sat by Pulse Oximetry 100 12/06/18 13:22 Oxygen Delivery Oxygen Delivery Room Air Medical Decision Making - Lab Data Result diagrams: 12/06/18 12:47 12/06/18 12:47 Lab Results 12/06/18 12/06/18 12/06/18 Range/Units 12:38 12:47 12:47 WBC 12.3 H (4.3-11.1) K/mcL RBC 3.59 L (3.82-4.97) M/mcL Hgb 11.4 L (11.5-15.4) g/dL Hct 34.7 L (35.3-44.9) % MCV 96.7 (83.0-100.0) fL MCH 31.8 (28.0-33.3) pg MCHC 32.9 (31.6-35.5) g/dL RDW 13.2 (11.5-14.5) % Plt Count 207 (140-400) K/mcL MPV 9.9 (9.4-12.4) fL Immature Gran % 0.3 (0-4) % Seg Neutrophils % 90.4 % Lymphocytes % 2.8 % Monocytes % 4.5 % Eosinophils % 1.9 % Basophils % 0.1 % Neutrophils # 11.1 H (1.6-8.9) K/mcL Lymphocytes # 0.3 L (0.6-4.6) K/mcL Monocytes # 0.6 (0.0-1.3) K/mcL Eosinophils # 0.2 (0.0-0.6) K/mcL Basophils # 0.0 (0.0-0.2) K/mcL PT (9.4-12.1) Seconds INR APTT (26.0-36.0) Seconds Sodium (136-145) mEq/L Potassium (3.5-5.1) mEq/L Chloride (98-107) mEq/L Carbon Dioxide (23-29) mEq/L BUN (8-23) mg/dL Creatinine (0.60-1.20) mg/dL Est GFR ( Amer) (> 60) Est GFR (Non-Af Amer) (> 60) BUN/Creatinine Ratio (6-26) Glucose (70-105) mg/dL Calculated Osmolality (280-300) Lactic Acid 1.5 (0.5-2.2) mmol/L Calcium (8.6-10.3) mg/dL Phosphorus (2.7-4.5) mg/dL Magnesium (1.6-2.6) mg/dL Urine Color Dark Yellow (Yellow) Urine Clarity Cloudy A (Clear) Urine pH 6.0 (5.0-8.0) pH Units Ur Specific Rowe 1.022 (1.010-1.025) Urine Protein 30 H (Neg-Trace) mg/dL Urine Glucose (UA) Normal (Normal) mg/dL Urine Ketones Trace H (Negative) mg/dL Urine Blood Small H (Negative) Urine Nitrite Negative (Negative) Urine Bilirubin Small H (Negative) Urine Urobilinogen Normal (Normal) mg/dL Ur Leukocyte Esterase Moderate H (Negative) Urine Microscopic RBC 5-15 H (0-3) per hpf Urine Microscopic WBC 50-100 H (0-3) per hpf Ur Squamous Epith Cells Many H (None-Few) per lpf Ur Transition Epith Cell Few (None-Few) per hpf Urine Bacteria None Seen (None-Few) per hpf Hyaline Casts Few (None-Few) per lpf Ur Culture Indicated? YES A (NO) 12/06/18 12/06/18 Range/Units 12:47 12:47 WBC (4.3-11.1) K/mcL RBC (3.82-4.97) M/mcL Hgb (11.5-15.4) g/dL Hct (35.3-44.9) % MCV (83.0-100.0) fL MCH (28.0-33.3) pg MCHC (31.6-35.5) g/dL RDW (11.5-14.5) % Plt Count (140-400) K/mcL MPV (9.4-12.4) fL Immature Gran % (0-4) % Seg Neutrophils % % Lymphocytes % % Monocytes % % Eosinophils % % Basophils % % Neutrophils # (1.6-8.9) K/mcL Lymphocytes # (0.6-4.6) K/mcL Monocytes # (0.0-1.3) K/mcL Eosinophils # (0.0-0.6) K/mcL Basophils # (0.0-0.2) K/mcL PT 11.4 (9.4-12.1) Seconds INR 1.0 APTT 31.7 (26.0-36.0) Seconds Sodium 135 L (136-145) mEq/L Potassium 3.2 L (3.5-5.1) mEq/L Chloride 103 (98-107) mEq/L Carbon Dioxide 29 (23-29) mEq/L BUN 26 H (8-23) mg/dL Creatinine 1.08 (0.60-1.20) mg/dL Est GFR ( Amer) > 60 (> 60) Est GFR (Non-Af Amer) 50 L (> 60) BUN/Creatinine Ratio 24 (6-26) Glucose 131 H (70-105) mg/dL Calculated Osmolality 287 (280-300) Lactic Acid (0.5-2.2) mmol/L Calcium 9.5 (8.6-10.3) mg/dL Phosphorus 2.5 L (2.7-4.5) mg/dL Magnesium 2.1 (1.6-2.6) mg/dL Urine Color (Yellow) Urine Clarity (Clear) Urine pH (5.0-8.0) pH Units Ur Specific Rowe (1.010-1.025) Urine Protein (Neg-Trace) mg/dL Urine Glucose (UA) (Normal) mg/dL Urine Ketones (Negative) mg/dL Urine Blood (Negative) Urine Nitrite (Negative) Urine Bilirubin (Negative) Urine Urobilinogen (Normal) mg/dL Ur Leukocyte Esterase (Negative) Urine Microscopic RBC (0-3) per hpf Urine Microscopic WBC (0-3) per hpf Ur Squamous Epith Cells (None-Few) per lpf Ur Transition Epith Cell (None-Few) per hpf Urine Bacteria (None-Few) per hpf Hyaline Casts (None-Few) per lpf Ur Culture Indicated? (NO) Attestation Statement - Attestation Attestation: I, Neil Hernandez DO, examined this patient [id number] and my medical dec ision-making was reviewed with Dr. Lenin Black , Resident Physician. I agree with the documented findings, disposition and treatment plan as described except to the extent set forth below. I personally supervised and was present for the zhou/critical portions of the procedures completed by the resident documented below. Please see my progress notes for details. 68-year-old female presents emergency room at the request of her primary care provider's office secondary to failed outpatient management of urinary tract infection. Patient cultures collected at the end of November that were positive for 2 different bacteria. They attempted to treat her with oral antibiotics at home without any significant relief. Patient is persistently worsening generalized malaise and weakness. Patient has had described chills at home but no documented fever. She is denying chest pain shortness of breath headache or vision change at this time. She has not had any nausea or vomiting. She has not fallen or injured herself. All of her medications have been taken as they are prescribed and she is still getting worse. Patient's vital signs otherwise stable. She is alert she is oriented. She is sitting upright in the bed. Mucous membranes are moist. Oropharynx is patent. Lungs are clear heart is regular. Abdomen is soft with no point tenderness guarding rigidity or peritoneal symptoms noted on exam. No CVA tenderness noted. Extremities otherwise normal. Patient shows no acute neurologic deficits or abnormality. Patient will have infection evaluation completed this time with CBC chemistry blood cultures lactic acid urinalysis and chest x-ray during this treatment course. EKG was collected. It was reviewed by myself and documented in the resident physician's note. No other acute issues noted this time. Patient does not require aggressive medical intervention at this point will be monitored here closely. See detailed documentation of the physical exam, medical intervention, medical decision-making and disposition in the resident physician's documentati on. No critical care applied the patient's treatment course at this time. 1400 Patient was discussed with the hospitalist Dr. Pollard who reviewed the case and refractory urinary tract infection. He is currently remaining the patient this time. No other change the antibiotic regimen is required at this point. Patient will be monitored here in emergency department until the admission process is completed.
[2018-12-06 12:58] LABS: Basophils % 0.1 %; Eosinophils # 0.2 K/mcL (0.0-0.6); Eosinophils % 1.9 %; Hematocrit 34.7 % (35.3-44.9); Immature Granulocytes % 0.3 % (0-4); Lymphocytes # 0.3 K/mcL (0.6-4.6); Lymphocytes % 2.8 %; Mean Corpuscular HGB Conc 32.9 g/dL (31.6-35.5); Mean Corpuscular Hemoglobin 31.8 pg (28.0-33.3); Mean Corpuscular Volume 96.7 fL (83.0-100.0); Mean Platelet Volume 9.9 fL (9.4-12.4); Monocytes # 0.6 K/mcL (0.0-1.3); Monocytes % 4.5 %; Neutrophils # 11.1 K/mcL (1.6-8.9); Platelet Count 207 K/mcL (140-400); Red Blood Count 3.59 M/mcL (3.82-4.97); Red Cell Distribution Width 13.2 % (11.5-14.5); Segmented Neutrophils % 90.4 %
[2018-12-06 12:59] LABS: Hemoglobin 11.4 g/dL (11.5-15.4); White Blood Count 12.3 K/mcL (4.3-11.1)
[2018-12-06 13:06] LABS: Bilirubin,Urine Small (Negative); Blood,Urine Small (Negative); Clarity,Urine Cloudy (Clear); Color,Urine Dark Yellow (Yellow); Glucose,Urine (UA) Normal (Normal); Ketones,Urine Trace mg/dL (Negative); Leukocyte Esterase,Urine Moderate (Negative); Nitrite,Urine Negative (Negative); Protein,Urine 30 mg/dL (Neg-Trace); Specific Gravity,Urine 1.022 (1.010-1.025); Urobilinogen,Urine Normal (Normal)
[2018-12-06 13:07] LABS: Prothrombin Time 11.4 Seconds (9.4-12.1)
[2018-12-06 13:09] LABS: Activated Partial Thrombo Time 31.7 Seconds (26.0-36.0); Bacteria,Urine None Seen per hpf (None-Few); Squamous Epithelial Cell,Urine Many per lpf (None-Few); WBC,Urine 50-100 per hpf (0-3)
[2018-12-06] MEDS: 0.9 % Sodium Chloride 1,000 ML IVC SCH ×2 (13:18→14:59)
[2018-12-06 13:21] LABS: BUN/Creatinine Ratio 24 (6-26); Blood Urea Nitrogen 26 mg/dL (8-23); Calcium 9.5 mg/dL (8.6-10.3); Carbon Dioxide 29 mEq/L (23-29); Chloride 103 mEq/L (98-107); Glucose 131 mg/dL (70-105); Magnesium 2.1 mg/dL (1.6-2.6); Osmolality,Calculated 287 (280-300); Phosphorous 2.5 mg/dL (2.7-4.5); Potassium 3.2 mEq/L (3.5-5.1); Sodium 135 mEq/L (136-145); eGFR For African Americans > 60 (> 60); eGFR For Non-African Americans 50 (> 60)
[2018-12-06 13:23] LABS: Hyaline Casts,Urine Few per lpf (None-Few)
[2018-12-06 13:24] LABS: Transitional Epi Cells,Urine Few per hpf (None-Few)
[2018-12-06] MEDS ORDERED: Potassium Chloride Elixir 20 MEQ/15 ML UDC PO ONE (13:47)
[2018-12-06] MEDS ORDERED: Naloxone 0.4 MG/ML INJ IVP PRN (14:20)
--- NOTE | 2018-12-06 15:10 | Internal Med History&Physical ---
Date of Encounter: 12/06/18 Time of Encounter: 14:30 Internal Medicine - H&P: HPI Chief complaint: UTI Admitted From: Emergency Dept Plans for Post Hospital Care: Home History of present illness: Ms. Mcintosh is a 68 year old female with a past medical history significant for anxiety and depression, recurrent kidney stones, was sent to the hospital by the PCP office because often resolving UTI. Patient went to the PCP office last week, she had the symptoms including dysuria, increased urinary frequency, UA was done and patient was prescribed cefdinir. Patient was taking the medication. Urine cultures yielded Proteus and enterococcus faecalis and the patient was not improved and then she was sent to the hospital for IV antibiotics. Patient is currently feeling very weak.Fever, chills, rigors. Endorses dysuria, nocturia, increasing in frequency. She has a similar symptoms back in September when she was diagnosed with UTI leading to sepsis. In the emergency department patient was hemodynamically stable. Laboratory workup showed WBC count of 12.3, hypokalemia, hypophosphatemia. UA showed UTI. Patient was admitted for further management. Patient EKG was reviewed, no ischemic changes. CT scan of the abdomen was also done which showed nonobstructing bilateral renal calculi measuring up to 3 mm on the right and 4 mm on the left without any hydronephrosis. Past Med Surg Social Fam HX - Past Medical History Medical history: cancer, fibromyalgia, GERD, kidney stones, other Additional medical history: sepsis Psychiatric history: anxiety, depression - Past Surgical History Surgical History: appendectomy, breast surgery, herniorrhaphy, hysterectomy, other Additional surgical history: left mastectomy. abd surgery - Social History Smoking Status: Never smoker Smokeless Tobacco Status: No Alcohol use: none Drug use: none - Family History Mother Living Status: Hx Family Cancer: Yes (Ovarian) Hx Family Endocrine Disorder: Yes (DM) Father Living Status: Hx Family Cancer: Yes (Prostate and colon) Internal Medicine - H&P: Meds Esomeprazole Magnesium [Nexium] 40 mg PO DAILY PRN 10/17/14 [History] Multivit-Min/FA/Lycopen/Lutein [Centrum Silver Tablet] 1 tab PO DAILY 10/17/14 [History] Escitalopram [Lexapro] 20 mg PO DAILY 07/10/15 [History] BuPROPion SR (12 HR) [Wellbutrin SR] 100 mg PO BID 01/07/16 [History] Gluc HCl/Csa/Collagen/Hyalur A [Glucosamine Chondroitin Cap] 1 each PO BID 05/05/16 [History] Zolpidem [Ambien] 5 mg PO HS 05/09/16 [History] Cholecalciferol (D-3) [Vitamin D] 1,000 unit PO DAILY 08/11/17 [History] Levothyroxine Sodium [Levoxyl] 88 mcg PO DAILY 08/11/17 [History] Polyethylene Glycol 3350 [MiraLAX] 17 gm PO DAILY #30 powd.pack 08/23/17 [Rx] Ascorbate Calcium [Vitamin C] 500 mg PO DAILY 09/17/17 [History] Cyanocobalamin (Vitamin B-12) [Vitamin B-12] 1,000 mcg PO DAILY 09/17/17 [History] Ferrous Sulfate [Iron] 325 mg PO DAILY 09/17/17 [History] Meclizine [Antivert] 12.5 mg PO DAILY PRN 09/17/17 [History] Tramadol HCl [Ultram] 50 mg PO TID PRN 09/17/17 [History] Vitamin E (Dl,Tocopheryl Acet) [Vitamin E] 400 unit PO BID 09/17/17 [History] Nortriptyline HCl 10 mg PO HS 05/04/18 [History] Sennosides/Docusate Sodium [Senna-S Tablet] 1 each PO BID 05/04/18 [History] Cefdinir [Omnicef] 300 mg PO BID 4 Days #8 capsule 09/28/18 [Rx] Allergy/AdvReac Type Severity Reaction Status Date / Time Iodinated Contrast Media AdvReac Hives Verified 12/06/18 10:48 [Iodinated Contrast Media - Oral and] All Systems PM: A 10-system review of systems was performed and is negative for pertinent findings except as documented above in the HPI. Review of systems: General: See HPI HEENT: Negative for neck swelling, discharge from nose, discharge from ears. EYES: Negative for any discharge from the eyes. Respiratory: Negative for shortness of breath, orthopnea, exertional dyspnea. Cardiovascular: Negative for chest pain, shortness of breath, orthopnea, PND. Gastrintestical: Negative for diarrhea, constipation, blood in stools. Genitourinary: See HPI Hematological: Negative for blood loss, negative for active cancer. Neurological: Negative for headache, dizziness, blurry vision, loss os power and sensations. Endocrinology: Negative for constipation, polyuria, polydipsia. Integumentary: Negative for rash, wounds, ulcers. Psychiatric: Negative for anxiety or depression. - Constitutional Vitals: Temp Pulse Resp BP Pulse Ox 97.8 F 80 20 113/62 98 12/06/18 10:48 12/06/18 15:00 12/06/18 15:00 12/06/18 15:00 12/06/18 15:00 Exam: General: Alert and oriented, mild physical distress, able to follow commands. HEENT: No thyromegaly, no lymphadenopathy, no discharge. Eyes: No discharge. Normal conjuctiva, no icterus Respiratory: Normal vesicular breathing, no added sounds, breathing equal in both sides. CVS: Normal heart sounds, no murmurs, regular rhthm, no edema Extremities: No peripheral edema, peripheral pulses intact. Lymph nodes: No lymphadenopathy Gastrointestinal: Soft, nontender abdomen, normal abdominal sounds. No distention noted. Genitourinary: No paravertebral tenderness. Skin: No rash, ulcers or wound. Neurological: Alert and oriented. No focal deficits. Cranial nerves II-XII intact. Internal Med - H&P Results - Labs CBC & Chem 7: 12/06/18 12:47 12/06/18 12:47 Labs: Short CBC 12/06/18 Range/Units 12:47 WBC 12.3 H (4.3-11.1) K/mcL Hgb 11.4 L (11.5-15.4) g/dL Hct 34.7 L (35.3-44.9) % Plt Count 207 (140-400) K/mcL Neutrophils # 11.1 H (1.6-8.9) K/mcL BMP 12/06/18 12:47 Sodium 135 L Potassium 3.2 L Chloride 103 Carbon Dioxide 29 BUN 26 H Creatinine 1.08 Glucose 131 H Calcium 9.5 Urine 12/06/18 Range/Units 12:47 Urine Color Dark Yellow (Yellow) Urine Clarity Cloudy A (Clear) Urine pH 6.0 (5.0-8.0) pH Units Ur Specific [place] 1.022 (1.010-1.025) Urine Protein 30 H (Neg-Trace) mg/dL Urine Glucose (UA) Normal (Normal) mg/dL - Impressions ITS Impressions Abdomen/Pelvis CT 12/06/18 12:55 IMPRESSION: Nonobstructing bilateral renal calculi, measuring up to 3 mm on the right and 4 mm on the left. No hydronephrosis. No acute inflammatory process in the abdomen or pelvis. D/ / 12/06/2018 13:04:30 Alison Ni MD / [facility] Interpreting Provider: Alison Ni MD - Assessment and Plan (1) Urinary tract infection Current Visit: Yes Status: Acute Assessment and plan: Failed outpatient oral therapy. Still symptomatic. Leukocytosis. Microbiology from 11/29/2018 revealed, positive for Enterococcus faecalis and Proteus mirabilis sensitive to ampicillin. Continue the patient on ampicillin. Await on final blood culture and urine culture reports. Qualifiers: Urinary tract infection type: acute cystitis Hematuria presence: without hematuria Qualified Code(s): N30.00 - Acute cystitis without hematuria (2) Hypophosphatemia Current Visit: Yes Status: Acute Assessment and plan: Phosphorus minimally low at 2.5. Appreciate oral intake Continue to monitor. (3) DVT prophylaxis Current Visit: Yes Status: Acute Assessment and plan: Subcutaneous enoxaparin. (4) Hypokalemia Current Visit: Yes Status: Acute Assessment and plan: Repleted in the emergency department at 40 of potassium chloride. Repeat levels tomorrow morning. (5) Depression Current Visit: No Status: Chronic Assessment and plan: Continue home medications. Qualifiers: Depression Type: unspecified Qualified Code(s): F32.9 - Major depressive disorder, single episode, unspecified (6) Hypothyroidism Current Visit: No Status: Chronic Assessment and plan: Continue home dose of Synthroid. Qualifiers: Hypothyroidism type: unspecified Qualified Code(s): E03.9 - Hypothyroidism, unspecified (7) Insomnia Current Visit: No Status: Chronic Assessment and plan: Continue when necessary zolpidem. Qualifiers: Insomnia type: unspecified Qualified Code(s): G47.00 - Insomnia, unspecified (8) Calculus of kidney Current Visit: No Status: Resolved Assessment and plan: CT scan evidence of calculi of the kidneys. Nonobstructing. No intervention at this point. Encourage oral intake of water. - Time Spent With Patient Total time spent is greater than 50% in coordination of care (as documented) at patient's floor/unit and/or counseling patient:
[2018-12-06] MEDS ORDERED: traMADol 50 MG TABLET PO PRN (15:16)
[2018-12-06] MEDS: Ampicillin 1,000 MG in 0.9 % Sodium Chloride Mini Bag 100 ML IVPB SCH (17:48)
[2018-12-06] MEDS ORDERED: Ampicillin/Sulbactam 3,000 MG in 0.9 % Sodium Chloride Mini Bag 100 ML IVPB SCH (18:00)
[2018-12-07] MEDS: Ampicillin 1,000 MG in 0.9 % Sodium Chloride Mini Bag 100 ML IVPB SCH ×5 (00:06→23:02)
[2018-12-07 03:58] LABS: BUN/Creatinine Ratio 24 (6-26); Blood Urea Nitrogen 17 mg/dL (8-23); Calcium 8.3 mg/dL (8.6-10.3); Carbon Dioxide 25 mEq/L (23-29); Chloride 110 mEq/L (98-107); Glucose 101 mg/dL (70-105); Magnesium 1.8 mg/dL (1.6-2.6); Osmolality,Calculated 284 (280-300); Phosphorous 2.1 mg/dL (2.7-4.5); Potassium 3.5 mEq/L (3.5-5.1); Sodium 136 mEq/L (136-145); eGFR For African Americans > 60 (> 60); eGFR For Non-African Americans > 60 (> 60)
[2018-12-07 04:05] LABS: Eosinophils # 0.6 K/mcL (0.0-0.6); Eosinophils % 11.9 %; Hematocrit 30.9 % (35.3-44.9); Hemoglobin 10.2 g/dL (11.5-15.4); Immature Granulocytes % 0.2 % (0-4); Lymphocytes # 0.8 K/mcL (0.6-4.6); Lymphocytes % 14.7 %; Mean Corpuscular Hemoglobin 32.9 pg (28.0-33.3); Mean Corpuscular Volume 99.7 fL (83.0-100.0); Mean Platelet Volume 10.1 fL (9.4-12.4); Monocytes # 0.4 K/mcL (0.0-1.3); Monocytes % 7.5 %; Neutrophils # 3.5 K/mcL (1.6-8.9); Platelet Count 200 K/mcL (140-400); Red Cell Distribution Width 13.4 % (11.5-14.5); Segmented Neutrophils % 65.7 %; White Blood Count 5.3 K/mcL (4.3-11.1)
[2018-12-07 04:34] LABS: Platelet Estimate Normal (Normal)
[2018-12-07] MEDS: *HR* Enoxaparin 40 MG/0.4 ML SYRINGE SQ SCH (05:50)
--- NOTE | 2018-12-07 11:29 | Electrocardiograph Report ---
[facility] Test Date: 2018-12-06 Pat Name: Omer Mcintosh Department: [id number] Room: 3B32 Gender: F Ip Architect: : [id number] Requested By: Lenin Black Order Number: [id number] Reading MD: Nate Cannon Measurements Intervals [place] Rate: 89 P: -32 DC: 145 QRS: 51 QRSD: 100 T: 38 QT: 353 QTc: 430 Interpretive Statements Sinus rhythm Electronically Signed On 12-07-2018 11:28:04 EDT by Nate Cannon
--- NOTE | 2018-12-07 13:59 | Internal Med Progress Note ---
<Adrian Estrada - Last Filed: 12/07/18 13:55> Hospitalist Progress Note - Encounter Date of Encounter: 12/07/18 Time of Encounter: 09:30 - Subjective Interval History: When seen today patient denies any dysuria or hematuria. She denies any fever. Denies any abdominal pain, nausea, or vomiting. She does admit to intermittent back pain specifically on the left side. Denies any chest pain, shortness of breath, cough, or wheezing. - Exam Vitals: Temp Pulse Resp BP Pulse Ox 98.3 F 77 16 96/51 96 12/07/18 11:27 12/07/18 11:27 12/07/18 11:27 12/07/18 11:27 12/07/18 11:27 Exam: GENERAL APPEARANCE: Well developed, well nourished, alert and cooperative, and appears to be in no acute distress. HEAD: normocephalic. EYES: vision is grossly intact. EARS: hearing grossly intact. NOSE: No nasal discharge. THROAT: Oral cavity and pharynx normal. No inflammation, swelling, exudate, or lesions. Teeth and gingiva in good general condition. NECK: Neck supple, non-tender without lymphadenopathy, masses or thyromegaly. CARDIAC: Normal S1 and S2. No S3, S4 or murmurs. Rhythm is regular. There is no peripheral edema, cyanosis or pallor. Extremities are warm and well perfused. Capillary refill is less than 2 seconds. No carotid bruits. LUNGS: Clear to auscultation and percussion without rales, rhonchi, wheezing or diminished breath sounds. ABDOMEN: Positive bowel sounds. Soft, nondistended, nontender. No guarding or rebound. No masses. MUSKULOSKELETAL: Adequately aligned spine. ROM intact spine and extremities. No joint erythema or tenderness. Normal muscular development. BACK: Positive L CVA tenderness. EXTREMITIES: No significant deformity or joint abnormality. No edema. Peripheral pulses intact. No varicosities. LOWER EXTREMITY: Examination of both feet reveals all toes to be normal in size and symmetry, normal range of motion, normal sensation with distal capillary filling of less than 2 seconds without tenderness, swelling, discoloration, nodules, weakness or deformity. SKIN: Macular erythematous lesions 3 cm in diameter on the RLE. - Assessment and Plan (1) Urinary tract infection Current Visit: Yes Status: Acute Assessment and Plan: History of recurrent urinary tract infections. Multiple failed outpatient treatments. Presented with mild leukocytosis, although has resolved today. Afebrile since admission. VS have been stable. Non-obstructing calculi of both kidneys present. Microbiology from 11/29/2018 revealed, positive for Enterococcus faecalis and Proteus mirabilis sensitive to ampicillin. - Continue with augmentin day #2. - Blood and urine cultures are pending. (2) Hypophosphatemia Current Visit: Yes Status: Acute Assessment and Plan: Phosphorus low at 2.1. - Continue to monitor. (3) Depression Current Visit: No Status: Chronic Assessment and Plan: Continue home medications. (4) Hypothyroidism Current Visit: No Status: Chronic Assessment and Plan: Continue home dose of Synthroid. (5) Insomnia Current Visit: No Status: Chronic Assessment and Plan: Continue when necessary zolpidem. (6) Calculus of kidney Current Visit: No Status: Resolved Assessment and Plan: CT scan evidence of calculi of the kidneys. Nonobstructing. - No intervention at this point. - Encourage oral intake of water. DVT Prophylaxis: Enoxaparin SQ. - Time Spent with Patient Total time spent is greater than 50% in coordination of care (as documented) at patient's floor/unit and/or counseling patient: Internal Medicine: Result - Labs CBC & Chem 7: 12/07/18 03:29 12/07/18 03:29 Labs: Short CBC 12/07/18 Range/Units 03:29 WBC 5.3 D (4.3-11.1) K/mcL Hgb 10.2 L (11.5-15.4) g/dL Hct 30.9 L (35.3-44.9) % Plt Count 200 (140-400) K/mcL Neutrophils # 3.5 (1.6-8.9) K/mcL BMP 12/07/18 03:29 Sodium 136 Potassium 3.5 Chloride 110 H Carbon Dioxide 25 BUN 17 Creatinine 0.71 Glucose 101 Calcium 8.3 L - ABG Interpretation ABG results: PT/INR, D-dimer PT 11.4 Seconds (9.4-12.1) 12/06/18 12:47 Consult Discharge Plan - Plan Referrals: Levi Wooten MD [Primary Care Provider] - (Appointment has been requested.) <Thallapaneni,Rambabu - Last Filed: 12/07/18 14:59> Hospitalist Progress Note - Encounter Date of Encounter: 12/07/18 - Exam Vitals: Temp Pulse Resp BP Pulse Ox 98.3 F 77 16 96/51 96 12/07/18 11:27 12/07/18 11:27 12/07/18 11:27 12/07/18 11:27 12/07/18 11:27 - Assessment and Plan (1) Urinary tract infection Current Visit: Yes Status: Acute (2) Hypophosphatemia Current Visit: Yes Status: Acute (3) DVT prophylaxis Current Visit: Yes Status: Acute (4) Hypokalemia Current Visit: Yes Status: Acute (5) Depression Current Visit: No Status: Chronic (6) Hypothyroidism Current Visit: No Status: Chronic (7) Insomnia Current Visit: No Status: Chronic (8) Calculus of kidney Current Visit: No Status: Resolved - Time Spent with Patient Total time spent is greater than 50% in coordination of care (as documented) at patient's floor/unit and/or counseling patient: Internal Medicine: Result - Labs CBC & Chem 7: 12/07/18 03:29 12/07/18 03:29 Labs: Short CBC 12/07/18 Range/Units 03:29 WBC 5.3 D (4.3-11.1) K/mcL Hgb 10.2 L (11.5-15.4) g/dL Hct 30.9 L (35.3-44.9) % Plt Count 200 (140-400) K/mcL Neutrophils # 3.5 (1.6-8.9) K/mcL BMP 12/07/18 03:29 Sodium 136 Potassium 3.5 Chloride 110 H Carbon Dioxide 25 BUN 17 Creatinine 0.71 Glucose 101 Calcium 8.3 L - ABG Interpretation ABG results: PT/INR, D-dimer PT 11.4 Seconds (9.4-12.1) 12/06/18 12:47 - Attending Attestation I examined this patient and my medical decision-making was reviewed with the Resident Physician Dr. Estrada. I agree with the documented findings, disposition and treatment plan as described except to the extent set forth below. Ms. Mcintosh is a 68 y/o F with known PMH of Anxiety, depression, recurrent kidney stones was sent to ER from PCP office for worsening UTI and generalized weakness. Patient went to the PCP office last week, she had the symptoms including dysuria, increased urinary frequency, UA was done and patient was prescribed cefdinir. Patient was taking the medication. Urine cultures yielded Proteus and enterococcus faecalis and the patient was not improved and then she was sent to the hospital for IV antibiotics. Pt was started on empirical abx IV Ampicillin which is sensitive to both Protues and enterococcus faecalis. Pt symptoms slowly improving. Cont close monitoring. <Adrian Estrada - Last Filed: 12/07/18 13:55> (1) Urinary tract infection Qualifiers: Urinary tract infection type: acute cystitis Hematuria presence: without hematuria Qualified Code(s): N30.00 - Acute cystitis without hematuria (3) Depression Qualifiers: Depression Type: unspecified Qualified Code(s): F32.9 - Major depressive disorder, single episode, unspecified (4) Hypothyroidism Qualifiers: Hypothyroidism type: unspecified Qualified Code(s): E03.9 - Hypothyroidism, unspecified (5) Insomnia Qualifiers: Insomnia type: unspecified Qualified Code(s): G47.00 - Insomnia, unspecified <Thallapaneni,Rambabu - Last Filed: 12/07/18 14:59> (1) Urinary tract infection Qualifiers: Urinary tract infection type: acute cystitis Hematuria presence: without hematuria Qualified Code(s): N30.00 - Acute cystitis without hematuria (5) Depression Qualifiers: Depression Type: unspecified Qualified Code(s): F32.9 - Major depressive disorder, single episode, unspecified (6) Hypothyroidism Qualifiers: Hypothyroidism type: unspecified Qualified Code(s): E03.9 - Hypothyroidism, unspecified (7) Insomnia Qualifiers: Insomnia type: unspecified Qualified Code(s): G47.00 - Insomnia, unspecified
[2018-12-08 04:55] LABS: BUN/Creatinine Ratio 22 (6-26); Blood Urea Nitrogen 14 mg/dL (8-23); Calcium 8.3 mg/dL (8.6-10.3); Carbon Dioxide 27 mEq/L (23-29); Chloride 109 mEq/L (98-107); Glucose 95 mg/dL (70-105); Magnesium 1.7 mg/dL (1.6-2.6); Osmolality,Calculated 288 (280-300); Phosphorous 2.8 mg/dL (2.7-4.5); Potassium 3.5 mEq/L (3.5-5.1); Sodium 139 mEq/L (136-145); eGFR For African Americans > 60 (> 60); eGFR For Non-African Americans > 60 (> 60)
[2018-12-08] MEDS: *HR* Enoxaparin 40 MG/0.4 ML SYRINGE SQ SCH (05:25)
[2018-12-08] MEDS: Ampicillin 1,000 MG in 0.9 % Sodium Chloride Mini Bag 100 ML IVPB SCH (05:25)
[2018-12-08 07:16] VITALS: BP 139/78
--- NOTE | 2018-12-08 09:10 | Discharge Summary ---
<NatalieAdrian - Last Filed: 12/08/18 09:08> Orders not resulted at time of discharge: Pending orders 12/06/18 12:47 Culture,Blood [BC] Stat Date of Encounter: 12/08/18 Time of Encounter: 08:20 - Discharge Diagnosis (1) Urinary tract infection Priority: Primary Status: Acute Qualifiers: Urinary tract infection type: acute cystitis Hematuria presence: without hematuria Qualified Code(s): N30.00 - Acute cystitis without hematuria (2) Hypophosphatemia Priority: Secondary Status: Resolved (3) Depression Priority: Secondary Status: Chronic Qualifiers: Depression Type: unspecified Qualified Code(s): F32.9 - Major depressive disorder, single episode, unspecified (4) Hypothyroidism Priority: Secondary Status: Chronic Qualifiers: Hypothyroidism type: unspecified Qualified Code(s): E03.9 - Hypothyroidism, unspecified (5) Insomnia Priority: Secondary Status: Chronic Qualifiers: Insomnia type: unspecified Qualified Code(s): G47.00 - Insomnia, unspecified (6) Calculus of kidney Priority: Secondary Status: Acute Hospital course: Ms. Mcintosh is a 68 year old female with a PMH of recurrent kidney stones that was sent from her PCP's office to the ER for unresolving UTI. Patient went to the PCP office last week, she had the symptoms including dysuria, increased urinary frequency, UA was done and patient was prescribed cefdinir. Urine cultures yielded Proteus and enterococcus faecalis and the patient was not improved and then she was sent to the hospital for IV antibiotics. Upon presenting to the ER, she had mild leukoctosis and mild hypotension, however she was afebrile and non-tachy. CT of the abdomen revealed nonobstructing bilateral renal calculi, measuring up to 3 mm on the right and 4 mm on the left with no hydronephrosis.Culture showed sensitivity to ampicillin for both organisms. She has responded well to IV ampicillin. When seen today, she denies any dysuria or hematuria. She denies any fever. Denies any suprapubic pain. She also says that the pain in her L flank has also subsided. She denies any nausea or vomiting. Patient will be discharged home today to complete an additional 7 days of oral ampicillin for a total of 10 days of antibiotic treatment. She will need to follow-up with her PCP in the next 3-4 days. Warned patient that if she experiences any dysuria, hematuria, flank pain, or fever to contact her PCP or report to the ER. - Time Spent with Patient Total time spent providing and/or coordinating discharge services: Time spent: Greater than 30 minutes - Discharge Medications Prescriptions: New Ampicillin Trihydrate 500 mg PO TID 4 Days #12 capsule Continued Multivit-Min/FA/Lycopen/Lutein [Centrum Silver Tablet] 1 tab PO DAILY Esomeprazole Magnesium [Nexium] 40 mg PO DAILY PRN PRN Reason: Indigestion Escitalopram [Lexapro] 20 mg PO DAILY BuPROPion SR (12 HR) [Wellbutrin SR] 100 mg PO DAILY Gluc HCl/Csa/Collagen/Hyalur A [Glucosamine Chondroitin Cap] 1 tab PO BID Zolpidem [Ambien] 5 mg PO HS Cholecalciferol (D-3) [Vitamin D] 1,000 unit PO DAILY Levothyroxine Sodium [Levoxyl] 88 mcg PO DAILY Polyethylene Glycol 3350 [MiraLAX] 17 gm PO DAILY #30 powd.pack Vitamin E (Dl,Tocopheryl Acet) [Vitamin E] 400 unit PO BID Meclizine [Antivert] 12.5 mg PO DAILY PRN PRN Reason: Dizziness Ferrous Sulfate [Iron] 325 mg PO DAILY Cyanocobalamin (Vitamin B-12) [Vitamin B-12] 1,000 mcg PO DAILY Ascorbate Calcium [Vitamin C] 500 mg PO DAILY Sennosides/Docusate Sodium [Senna-S Tablet] 1 each PO BID Ciprofloxacin HCl [Cipro] 250 mg PO BID Diclofenac Sodium 25 mg PO HS Nitrofurantoin Macrocrystal [Nitrofurantoin] 100 mg PO BID Nortriptyline [Pamelor] 10 mg PO HS Home Medications: Esomeprazole Magnesium [Nexium] 40 mg PO DAILY PRN 10/17/14 [History] Multivit-Min/FA/Lycopen/Lutein [Centrum Silver Tablet] 1 tab PO DAILY 10/17/14 [History] Escitalopram [Lexapro] 20 mg PO DAILY 07/10/15 [History] BuPROPion SR (12 HR) [Wellbutrin SR] 100 mg PO DAILY 01/07/16 [History] Gluc HCl/Csa/Collagen/Hyalur A [Glucosamine Chondroitin Cap] 1 tab PO BID 05/05/16 [History] Zolpidem [Ambien] 5 mg PO HS 05/09/16 [History] Cholecalciferol (D-3) [Vitamin D] 1,000 unit PO DAILY 08/11/17 [History] Levothyroxine Sodium [Levoxyl] 88 mcg PO DAILY 08/11/17 [History] Polyethylene Glycol 3350 [MiraLAX] 17 gm PO DAILY #30 powd.pack 08/23/17 [Rx] Ascorbate Calcium [Vitamin C] 500 mg PO DAILY 09/17/17 [History] Cyanocobalamin (Vitamin B-12) [Vitamin B-12] 1,000 mcg PO DAILY 09/17/17 [History] Ferrous Sulfate [Iron] 325 mg PO DAILY 09/17/17 [History] Meclizine [Antivert] 12.5 mg PO DAILY PRN 09/17/17 [History] Vitamin E (Dl,Tocopheryl Acet) [Vitamin E] 400 unit PO BID 09/17/17 [History] Sennosides/Docusate Sodium [Senna-S Tablet] 1 each PO BID 05/04/18 [History] Ciprofloxacin HCl [Cipro] 250 mg PO BID 12/07/18 [History] Diclofenac Sodium 25 mg PO HS 12/07/18 [History] Nitrofurantoin Macrocrystal [Nitrofurantoin] 100 mg PO BID 12/07/18 [History] Nortriptyline [Pamelor] 10 mg PO HS 12/07/18 [History] Ampicillin Trihydrate 500 mg PO TID 4 Days #12 capsule 12/08/18 [Rx] Allergies/Adverse Reactions: Allergy/AdvReac Type Severity Reaction Status Date / Time Iodinated Contrast Media AdvReac Hives Verified 12/07/18 14:12 [Iodinated Contrast Media - Oral and] Date of admission: 12/06/18 15:29 Primary care physician: Levi Wooten MD Discharging clinician: Adrian Estrada Anticipated date of discharge: 12/08/18 - Constitutional Vitals: Temp Pulse Resp BP Pulse Ox 97.9 F 78 16 139/78 95 12/08/18 07:15 12/08/18 07:15 12/08/18 07:15 12/08/18 07:15 12/08/18 07:15 Exam: GENERAL APPEARANCE: Well developed, well nourished, alert and cooperative, and appears to be in no acute distress. HEAD: normocephalic. EYES: vision is grossly intact. EARS: hearing grossly intact. NOSE: No nasal discharge. THROAT: Oral cavity and pharynx normal. No inflammation, swelling, exudate, or lesions. Teeth and gingiva in good general condition. NECK: Neck supple, non-tender without lymphadenopathy, masses or thyromegaly. CARDIAC: Normal S1 and S2. No S3, S4 or murmurs. Rhythm is regular. There is no peripheral edema, cyanosis or pallor. Extremities are warm and well perfused. Capillary refill is less than 2 seconds. No carotid bruits. LUNGS: Clear to auscultation and percussion without rales, rhonchi, wheezing or diminished breath sounds. ABDOMEN: Positive bowel sounds. Soft, nondistended, nontender. No guarding or rebound. No masses. MUSKULOSKELETAL: Adequately aligned spine. ROM intact spine and extremities. No joint erythema or tenderness. Normal muscular development. BACK: Negative CVA tenderness b/l. EXTREMITIES: No significant deformity or joint abnormality. No edema. Peripheral pulses intact. No varicosities. LOWER EXTREMITY: Examination of both feet reveals all toes to be normal in size and symmetry, normal range of motion, normal sensation with distal capillary filling of less than 2 seconds without tenderness, swelling, discoloration, n odules, weakness or deformity. SKIN: Macular erythematous lesions 3 cm in diameter on the RLE. - Patient Status Disposition: Home, Self-Care Condition: Fair Overall status at discharge: patient is progressing back to baseline - Discharge Instructions Instructions: Urinary Tract Infection in Women (DC) Follow Up With: Levi Wooten MD [Primary Care Provider] - 12/13/18 10:00 am () - Diet and Activity Activity: increase activity as tolerated Diet: advance to your usual diet <Tenzin Malone - Last Filed: 12/08/18 13:19> Orders not resulted at time of discharge: Pending orders 12/06/18 12:47 Culture,Blood [BC] Stat Date of Encounter: 12/08/18 - Discharge Diagnosis (1) Urinary tract infection Status: Acute Qualifiers: Urinary tract infection type: acute cystitis Hematuria presence: without hematuria Qualified Code(s): N30.00 - Acute cystitis without hematuria (2) Hypophosphatemia Status: Resolved (3) DVT prophylaxis Status: Acute (4) Hypokalemia Status: Acute (5) Depression Status: Chronic Qualifiers: Depression Type: unspecified Qualified Code(s): F32.9 - Major depressive disorder, single episode, unspecified (6) Hypothyroidism Status: Chronic Qualifiers: Hypothyroidism type: unspecified Qualified Code(s): E03.9 - Hypothyroidism, unspecified (7) Insomnia Status: Chronic Qualifiers: Insomnia type: unspecified Qualified Code(s): G47.00 - Insomnia, unspecified (8) Calculus of kidney Status: Acute Hospital course: Ms. Mcintosh is a 68 year old female - Time Spent with Patient Total time spent providing and/or coordinating discharge services: Date of admission: 12/06/18 15:29 Primary care physician: Levi Wooten MD - Constitutional Vitals: Temp Pulse Resp BP Pulse Ox 97.9 F 78 16 139/78 95 12/08/18 07:15 12/08/18 07:15 12/08/18 07:15 12/08/18 07:15 12/08/18 07:15 - Attending Attestation I examined this patient and my medical decision-making was reviewed with the Resident Physician Dr. Estrada. I agree with the documented findings, disposition and treatment plan as described except to the extent set forth below. Ms. Mcintosh is a 68 y/o F with known PMH of Anxiety, depression, recurrent kidney stones was sent to ER from PCP office for worsening UTI and generalized weakness. Patient went to the PCP office last week, she had the symptoms including dysuria, increased urinary frequency, UA was done and patient was prescribed cefdinir. Patient was taking the medication. Urine cultures yielded Proteus and enterococcus faecalis and the patient was not improved and then she was sent to the hospital for IV antibiotics. Pt was started on empirical abx IV Ampicillin which is sensitive to both Protues and enterococcus faecalis. Pt stated she is feeling much better today. Her urine cx did not grow any bacteria now could be due to recent abx usage. However due to her symptoms will treat with PO Ampicillin for another 4 days.
== END 2018-12-08 11:18 | disposition home or self-care (01) | DRG 690 ==
LOC: 3BNU 10:44 → EMEROOARM 10:44 → SUATTDRO 15:29 → OBSVTOIN 15:29 → 3BNU 16:06
PROVIDERS: ADMIT Pharmacist; ATTEND Family Medicine